=== PATIENT | male | born 1945 | race Caucasian/White ===

== ENCOUNTER → 2024-05-20 | Outpatient (BNVA) | payer OTHER, SELFPAY | END | disposition home or self-care (01) | PROVIDERS: PCP Hospitalist; Referring Provider Hospitalist; Visit Provider Urology | DX: N40.1 Benign prostatic hyperplasia with lower urinary tract symptoms (principal); N13.8 Other obstructive and reflux uropathy; N39.0 Urinary tract infection, site not specified; I10 Essential (primary) hypertension; E11.9 Type 2 diabetes mellitus without complications; E78.5 Hyperlipidemia, unspecified; G47.30 Sleep apnea, unspecified; E66.01 Morbid (severe) obesity due to excess calories; Z68.42 Body mass index [BMI] 45.0-49.9, adult; Z99.3 Dependence on wheelchair; M06.9 Rheumatoid arthritis, unspecified; Z86.73 Personal history of transient ischemic attack (TIA), and cerebral infarction without residual deficits; Z87.440 Personal history of urinary (tract) infections | CPT/HCPCS: 51701; 81003; 99212; G0463 ==

== ENCOUNTER → 2024-05-21 | Outpatient (CLI) | payer OTHER, SELFPAY | END | disposition home or self-care (01) | PROVIDERS: Referring Provider Urology; Visit Provider Urology | DX: R39.0 Extravasation of urine (principal) | CPT/HCPCS: 87077; 87086; 87186 ==

== ENCOUNTER → 2024-08-27 | Outpatient (CLI) | payer OTHER, SELFPAY ==
[2024-08-27 19:21] LABS: Collection Type, Urine Voided
[2024-08-27 19:42] LABS: Bacteria,Urine 1+; Bilirubin,Urine Negative (Negative); Blood,Urine 2+ (Negative); Color,Urine Yellow (Lt Yel-Yel); Glucose, Urine 4+ (Negative); Ketones,Urine Trace (Negative); Leukocyte Esterase,Urine Positive (Negative); Nitrite,Urine Positive (Negative); Protein,Urine 1+ (Neg - Trace); RBC,Urine 36 /hpf (0-3); Specific Gravity,Urine 1.019 (1.001-1.035); Squamous Epithelial Cell,Urine 1 /hpf (0-5); Urobilinogen,Urine Negative mg/dL (0.0-1.0); WBC,Urine 1203 /hpf (0-5)
[2024-08-27 19:48] LABS: Clarity,Urine Turbid (Clear/Hazy); Culture Indicated,Urine Yes
== END | disposition home or self-care (01) ==
LOC: SLDO 19:03
PROVIDERS: PCP Hospitalist; Referring Provider Hospitalist; Visit Provider Hospitalist
DX: N40.0 Benign prostatic hyperplasia without lower urinary tract symptoms (principal)
CPT/HCPCS: 81001; 87077; 87086; 87186

== ENCOUNTER 2024-08-29 15:03 | Inpatient (IN) | payer OTHER, SELFPAY ==
[2024-08-29] VITALS (7 sets, daily range): BP systolic 98–159; BP diastolic 64–92; PULSE 68–99; RESP 18–93; TEMP 36.6–36.8; O2SAT 93–95; BMI 45.9; BMI 47.0
--- NOTE | 2024-08-29 16:16 | XR_ITS ---
Examination: CT brain head without contrast. 2-D sagittal coronal reconstructions Date and time of exam:11/29/2024 1757 hours INDICATIONS: Patient fell from bed today with image of the head, head pain CTDI: vol (mGy):52.8 DLP: (mGycm):1126 Technique: Multiple CT axial sections of the brain have been obtained, 5 mm slice thickness. Contrast has not been administered. 2-D sagittal, coronal reconstructions have been obtained Low dose protocols were performed. One or more of the following dose reduction techniques were used; automated exposure control, adjustment of the mA and/or KV according to patient size, use of iterative reconstruction technique. Findings: No significant ventricular enlargement. Large areas of bifrontal bitemporal probable encephalomalacia, clinical correlation advised Intra-axial or extra-axial hemorrhage density is not seen. No mass effect or midline shift Basal cisterns are not remarkable. Fourth ventricle is midline. Cranial vault intact. Impression: Negative for acute hemorrhage, mass effect or midline shift Bifrontal bitemporal areas of probable encephalomalacia, clinical correlation advised
--- NOTE | 2024-08-29 16:21 | EKG_ITS ---
[facility] Test Date: 2024-08-29 Pat Name: MAL RUIZ Department: Room: - Gender: Male Checkroom Chief: : 1945 Requested By: Dae Martins Order Number: [id number] Reading MD: Dae Martins Measurements Intervals [place] Rate: 76 P: NV: QRS: 7 QRSD: 103 T: 81 QT: 407 QTc: 459 Interpretive Statements ATRIAL FIBRILLATION ABNORMAL RHYTHM ECG No previous ECG available for comparison /store/S0/[id number]/[id number].pdf
--- NOTE | 2024-08-29 16:23 | XR_ITS ---
Examination: AP chest single view TECHNIQUE: AP portable upright chest single view Exam date and time: August 29, 2024 1631 hours INDICATIONS: Sepsis alert, chest pain and SOB today. FINDINGS: Bibasilar pneumonia. Mild heart failure with enlarged cardiac contour and prominent vascular congestion Moderate osteopenia IMPRESSION: Bibasilar pneumonia Mild heart failure
--- NOTE | 2024-08-29 16:26 | PD.EDMALE ---
ED Male Genitalurinary RME/HPI General Chief complaint: Weakness Stated complaint: GENERALIZED WEAKNESS Time Seen by Provider: 08/29/24 15:54 Arrival date/time: 08/29/24 15:03 RME / HPI RME / HPI Narrative: The patient is a 78-year-old male with significant past medical history of hypertension, BPH, Morbid obesity, rheumatoid arthritis, diabetes mellitus type 2, cardiac arrhythmias, hyperlipidemia, sleep apnea, psoriasis, chronic bilateral lower limb edema, s/p CVA, osteoarthritis, s/p prostate ablation procedure in 1979 was sent to ED from his [facility] to rule out sepsis secondary to UTI. UA on 08/27/2024 was significant for UTI and he has been having urinary frequency, burning micturition and dysuria for about a month. He also had fever of 104.2 last night around 11 PM in his facility. This morning around 6:30 AM the patient was trying to get out of his bed, but after keeping his leg out of his bed he slipped down his bed and was not able to get up. He is ambulatory at baseline. He denied having ground-level fall but mentioned that only had slipped down his bed, and did not hit his head or had any severe impact over any other part of body. He denied any headache, lightheadedness, nausea or vomiting, chest pain, SOB, abdominal pain, any changes in bowel habit or worsening of his lower limb edema. Related Data Home Medications ?Medication ?Instructions ?Recorded ?Confirmed acetaminophen 650 mg 650 mg PO Q12H 09/15/22 05/20/24 tablet,extended release amlodipine 5 mg tablet 5 mg PO QDAY 09/15/22 05/20/24 apixaban 5 mg tablet 5 mg PO BID 09/15/22 05/20/24 finasteride 5 mg tablet 5 mg PO QDAY 09/15/22 05/20/24 furosemide 40 mg tablet 40 mg PO QDAY 09/15/22 05/20/24 lisinopril 40 mg tablet 40 mg PO QDAY 09/15/22 05/20/24 loperamide 2 mg tablet 2 mg PO Q4H PRN 09/15/22 05/20/24 metoprolol succinate 100 mg 100 mg PO BID 09/15/22 05/20/24 tablet,extended release 24 hr potassium chloride 20 mEq 20 meq PO QDAY 09/15/22 05/20/24 tablet,extended release tamsulosin 0.4 mg capsule 0.8 mg PO QDAY 09/15/22 05/20/24 silodosin 8 mg capsule (Rapaflo) 8 mg PO QDAY 12/20/22 12/20/22 carboxymethylcellulose sodium 0.5 1 drp Both eyes QID 05/20/24 05/20/24 % eye drops in a dropperette empagliflozin 25 mg tablet 25 mg PO QDAY 05/20/24 05/20/24 levofloxacin 500 mg tablet 500 mg PO QDAY 05/20/24 05/20/24 Allergies Allergy/AdvReac Type Severity Reaction Status Date / Time Penicillins Allergy Verified 08/29/24 16:37 Review of Systems Review of Systems Systems Reviewed: All systems reviewed, normal except as documented ED Exam Narrative Physical exam: General: Elderly, morbidly obese, cooperative gentleman, no acute distress, Alert and Oriented x 3 HEENT: Moist mucous membranes, oropharynx clear Neck: Supple, No masses, No JVD CVS: S1S2 Regular rate and rhythm, No murmurs, rubs or gallops Lungs: Clear to auscultation with no accessory use, no wheeze no rhonchi Abd: Soft, NT/distended in all quadrant, +BS, no organomegaly Ext: 2+ bilateral lower limb pitting edema wrapped under compression bandage, difficult to palpate peripheral pulses over lower limb Skin: No rash Psych: Appropriate mood and affect Course Quality Measures Current suspected stage: ruled out Reason for ruling out sepsis: Met 0/4 SIRS criteria Possible source: pulmonary and genitourinary Blood cultures ordered: yes Antibiotic ordered: Yes Pertinent labs: 08/29/24 16:41 Lactic Acid 2.8 H mMol/L (0.4-2.0) Procalcitonin 0.57 H ng/ml (0.0-0.49) sepsis (Was sent to rule out sepsis secondary to UTI from [facility]) Orders Category Date Time Status Agricultural Purchasing Agent STAT Care 08/29/24 16:21 Active Continuous Pulse Oximetry STAT Care 08/29/24 16:21 Completed EKG (ED ONLY) *Do not use* NOW Care 08/29/24 16:21 Active Insert IV NOW Care 08/29/24 16:21 Active Strict Intake and Output Routine Care 08/29/24 16:[address] head/brain wo con Stat Exams 08/29/24 16:16 Ordered EKG (ED Only) Stat Exams 08/29/24 16:21 Ordered XR chest 1V SEPSIS PROTOCOL Stat Exams 08/29/24 16:23 Taken B-Type Natriuretic Peptide Stat Lab 08/29/24 16:41 Received Blood Culture (Lab) Stat Lab 08/29/24 16:41 Received CBC Stat Lab 08/29/24 16:41 Received Comprehensive Metabolic Panel Stat Lab 08/29/24 16:41 Received LDH (Lactate Dehydrogenase) Stat Lab 08/29/24 16:41 Received Lactate (Lactic Acid) Stat Lab 08/29/24 16:41 Results Magnesium Stat Lab 08/29/24 16:41 Received Partial Thromboplastin Time Stat Lab 08/29/24 16:41 Received Phosphorous Stat Lab 08/29/24 16:41 Received Procalcitonin Stat Lab 08/29/24 16:41 Received Prothrombin Time with INR Stat Lab 08/29/24 16:41 Received Troponin I Stat Lab 08/29/24 16:41 Received Urinalysis Stat Lab 08/29/24 16:21 Ordered Urine Culture Stat Lab 08/29/24 16:21 Ordered Doxycycline Inj [Vibramycin Inj] 100 mg Med 08/29/24 17:47 Active Sodium Chloride 0.9% (Pop) [NS 0.9% mini bag] 100 ml IV Q12H Magnesium Sulfate 4 GM Ivpb [Magnesium Sulfate Ivpb] Med 08/29/24 17:39 Active 4 gm in 50 ml IV X1 Potassium Chloride [K-Dur] Med 08/29/24 17:39 Discontinued 40 meq PO X1 ONE cefTRIAXone/D5w 1gm IV premix [Rocephin/D5w 1gm IV Med 08/29/24 16:29 Discontinued premix] 1 gm in 50 ml IV X1 Oxygen Delivery NOW RT 08/29/24 16:21 Active Vital Signs Vital signs: Vital Signs Temperature 97.8 F 08/29/24 15:26 Pulse Rate 77 08/29/24 15:26 Respiratory Rate 20 08/29/24 15:26 Blood Pressure 104/67 08/29/24 15:26 Pulse Oximetry (%) 94 L 08/29/24 15:26 Oxygen Delivery Method Room Air 08/29/24 15:26 Urogenital - Male MDM Narrative MDM Narrative:: The patient is a 78-year-old male with significant past medical history of hypertension, BPH, Morbid obesity, rheumatoid arthritis, diabetes mellitus type 2, cardiac arrhythmias, hyperlipidemia, sleep apnea, psoriasis, chronic bilateral lower limb edema, s/p CVA, osteoarthritis, s/p prostate ablation procedure in 1979 was sent to ED from his [facility] to rule out sepsis secondary to UTI. UA on 08/27/2024 was significant for UTI and he has been having urinary frequency, burning micturition and dysuria for about a month. He also had fever of 104.2 last night around 11 PM in his facility. This morning around 6:30 AM the patient was trying to get out of his bed, but after keeping his leg out of his bed he slipped down his bed and was not able to get up. He is ambulatory at baseline. He denied having ground-level fall but mentioned that only had slipped down his bed, and did not hit his head or had any severe impact over any other part of body. He denied any headache, lightheadedness, nausea or vomiting, chest pain, SOB, abdominal pain, any changes in bowel habit or worsening of his lower limb edema. During presentation his vitals were significant for blood pressure 104/67, pulse 77, RR 20, temperature 97.8, saturating 94% on room air. Labs were significant for white count 11.9, platelet 86, PT 13.3, potassium 3.6, BUN 27, creatinine 1.3, GFR 57, blood sugar 170, lactic acid 2.8 corrected calcium 8.7, magnesium 1.7, BNP 175, albumin 3.1, Pro-Pelon 0.57. EKG was significant for atrial fibrillation, and chest x-ray revealed bibasilar pneumonia with mild heart failure pattern. UA and CT head without contrast pending. The patient met 0/4 SIRS criteria, and his mentation, systolic blood pressure was initially 104 later went down to 98. Therefore, 30 cc/kg bolus fluid was not given, and patient also had mild CHF pattern in CXR including bilateral lower limb 2+ pitting edema suggestive of volume overload condition. The patient was given ceftriaxone 1 g IV x 1, doxycycline 100 Mg IV every 12 hour, both would cover UTI and pneumonia. Patient data External records reviewed:: [facility] [place] Clinical information provided by:: patient and evaluation advisor (From [facility]) Social determinants that could affect healthcare access:: none Patient has the following chronic illnesses:: See above How is presenting disease/condition affected by chronic disease/condition?: exacerbated by Evaluation data The following diagnostics were reviewed and interpreted by me:: lab results and radiology exam(s) Lab and/or radiology exams considered but not ordered:: None Interpretation Summary: See above Medications / Prescriptions Medications or Prescriptions considered but not ordered:: None Medication administrations:: Medication Administration History Magnesium Sulfate (Magnesium Sulfate Ivpb) 4 gm in 50 mls @ 12.5 mls/hr IV X1 ONE Stop: 08/29/24 21:38 Doxycycline Hyclate 100 mg/ (Sodium Chloride) 100 mls @ 100 mls/hr IV Q12H ONE Stop: 08/29/24 18:46 Discontinued Medications Ceftriaxone Sodium/Dextrose (Rocephin/D5w 1gm Iv Premix) 1 gm in 50 mls @ 100 mls/hr IV X1 ONE Stop: 08/29/24 16:58 Last Admin: 08/29/24 17:02 Dose: 100 mls/hr Documented By: Comments: Potassium Chloride (Potassium Chloride 20 Meq Tabcr) 40 meq PO X1 ONE Stop: 08/29/24 17:40 See above Consultations Consultation(s) initiated? (list below): No Consultation #1 (Physician, Specialty, Details): None Diagnosis Urogenital Male Differential Diagnosis: urinary tract infection, prostatitis and other (Bacteremia) Most likely diagnosis given after review of the tests above:: 1. Prostatitis 2. Community-acquired pneumonia versus healthcare associated pneumonia Admission Indicated Admission indicated?: not indicated Explain why admission is indicated or not indicated:: Signed out to Dr. Jeter for further management and care of the patient, pending UA and CT head without contrast to rule out intracranial bleed. Admission Request Was there a request for admission?: No Disposition Plan Disposition Plan: other (specify) (Signed out to Dr. Jeter for further management and care of the patient, pending UA and CT head without contrast to rule out intracranial bleed.) Discharge Plan Prescriptions/Referrals Prescriptions/Med Rec: No Action silodosin [Rapaflo] 8 mg capsule 8 mg PO QDAY Rx Instructions: must administer with a meal/food acetaminophen 650 mg tablet extended release 650 mg PO Q12H amlodipine 5 mg tablet 5 mg PO QDAY apixaban 5 mg tablet 5 mg PO BID furosemide 40 mg tablet 40 mg PO QDAY potassium chloride 20 mEq tablet extended release 20 meq PO QDAY metoprolol succinate 100 mg tablet extended release 24 hr 100 mg PO BID loperamide 2 mg tablet 2 mg PO Q4H PRN Rx Instructions: administer after each loose stool until symptoms controlled; do not exceed 8 mg per 24 hrs lisinopril 40 mg tablet 40 mg PO QDAY tamsulosin 0.4 mg capsule 0.8 mg PO QDAY finasteride 5 mg tablet 5 mg PO QDAY carboxymethylcellulose sodium 0.5 % dropperette 1 drp Both eyes QID empagliflozin 25 mg tablet 25 mg PO QDAY levofloxacin 500 mg tablet 500 mg PO QDAY Referrals: No Primary/Family,Physician [Primary Care Provider] - In 1 week Problem List Clinical Impression: Prostatitis Patient/Caregiver Discharge Instructions Print Language: Danish
[2024-08-29] MEDS: cefTRIAXone/D5w 1gm IV premix 1 GM/50 ML BAG IV (17:02)
[2024-08-29 17:03] LABS: Lactate (Lactic Acid) 2.8 mMol/L (0.4-2.0)
[2024-08-29 17:07] LABS: Basophils # (Auto) 0.1 Thou/mm3 (0.0-0.2); Basophils % (Auto) 1 % (0-2.5); Eosinophils % (Auto) 0 % (0-10); Hematocrit 43.2 % (41.0-53.0); Hemoglobin 15.4 g/dL (13.5-16.0); Immature Granulocytes % (Auto) 0 % (0-0); Immature Granulocytes Auto 0.05 Thou/mm3 (0.00-0.00); Lymphocytes # (Auto) 1.2 Thou/mm3 (1.0-4.8); Lymphocytes % (Auto) 10 % (10-50); Mean Corpuscular HGB Conc 35.6 g/dl (31.0-37.0); Mean Corpuscular Hemoglobin 31.2 pg (25.0-35.0); Mean Corpuscular Volume 88 fL (80-100); Monocytes # (Auto) 1.6 Thou/mm3 (0.0-0.8); Monocytes % (Auto) 13 % (0-12); Neutrophils # (Auto) 9.1 Thou/mm3 (1.8-7.7); Neutrophils % (Auto) 76 % (37-80); Nucleated Red Blood Cell % 0 /100 WBC (0); Platelet Count 86 Thou/mm3 (140-440); RDW Standard Deviation 45.5 fL (35.1-43.9); Red Blood Count 4.93 Miln/mm3 (4.50-5.90); White Blood Count 11.9 Thou/mm3 (3.8-10.6)
[2024-08-29 17:20] LABS: INR 1.2 (0.9-1.3); Partial Thromboplastin Time 30.8 Seconds (22.0-36.0); Prothrombin Time 13.3 Seconds (9.0-12.2)
[2024-08-29 17:24] LABS: B-Type Natriuretic Peptide 175 pg/mL (0-100)
[2024-08-29 17:27] LABS: Alanine Aminotransferase 16 U/L (10-49); Albumin, Serum 3.1 gm/dL (3.4-4.8); Albumin/Globulin Ratio 1.2 (1.2-2.2); Alkaline Phosphatase 92 U/L (46-116); Anion Gap 6 (7-16); Aspartate Amino Transferase 18 U/L (0-34); BUN/Creatinine Ratio 21 Ratio (12-20); Bilirubin,Total 0.9 mg/dL (0.3-1.2); Blood Urea Nitrogen 27 mg/dL (9-23); Calcium (Corrected) 8.7 mg/dL (8.5-10.1); Carbon Dioxide 28.1 mMol/L (20.0-31.0); Chloride 102 mMol/L (98-107); Creatinine (Component) 1.3 mg/dL (0.6-1.3); Estimated Creatinine Clearance 64.5 mL/min (>60); Globulin 2.6 gm/dL (2.3-3.5); Glucose 170 mg/dL (74-106); LDH (Lactate Dehydrogenase) 213 U/L (120-246); Magnesium 1.7 mg/dL (1.6-2.6); Osmolality,Calculated 281 (275-295); Phosphorous 3.7 mg/dL (2.4-5.1); Potassium 3.6 mMol/L (3.4-5.1); Sodium 136 mMol/L (136-145); Total Protein 5.7 gm/dL (5.7-8.2); Troponin I < 0.020 ng/mL (0.0-0.045); eGFR 57 See Note
[2024-08-29 17:33] LABS: Procalcitonin 0.57 ng/ml (0.0-0.49)
[2024-08-29 17:50] LABS: Collection Type, Urine Clean Catch
[2024-08-29] MEDS: DOXYCYCLINE INJ 100 MG in SODIUM CHLORIDE 0.9% (POP) 100 ML IV (18:11)
[2024-08-29] MEDS: POTASSIUM CHLORIDE 20 mEq TABCR 40 MEQ PO (18:12)
[2024-08-29] MEDS: Magnesium Sulfate 4 GM Ivpb 4 GM/50 ML BAG IV (18:12)
[2024-08-29 18:28] LABS: Bacteria,Urine 4+; Bilirubin,Urine Negative (Negative); Blood,Urine 2+ (Negative); Color,Urine Orange (Lt Yel-Yel); Glucose, Urine Negative (Negative); Ketones,Urine Negative (Negative); Leukocyte Esterase,Urine Positive (Negative); Nitrite,Urine Negative (Negative); PH,Urine 5.5 (5.0-7.0); Protein,Urine 1+ (Neg - Trace); RBC,Urine 30 /hpf (0-3); Specific Gravity,Urine 1.015 (1.001-1.035); Squamous Epithelial Cell,Urine 2 /hpf (0-5); Urobilinogen,Urine Negative mg/dL (0.0-1.0); WBC,Urine 3620 /hpf (0-5)
[2024-08-29 18:39] LABS: Clarity,Urine Turbid (Clear/Hazy)
--- NOTE | 2024-08-29 18:50 | EDNOTE_ITS ---
Emergency Room Addendum Addendum Narrative: 1800: Care assumed from Dr. Martins, attending Dr. Sanders, the previous shift emergency physician. Past medical, surgical, social and family history reviewed. Vitals and home medications reviewed. Results and treatment plan discussed. I will assume the care of the patient at this time and will follow the patient, pending CT head and UA. Please refer to the emergency department record for history and examination from initial visit. UA is positive for a UTI. Patient was already treated with Rocephin and Doxycycline. 184: Discussed case with Dr. Brice from Hospitalist service regarding admission. Discussed patients ED course, exam findings, labs, and radiology results. The Hospitalist agrees to accept the patient for admission. RADIOLOGY RESULTS: [facility] Report Signed Patient: MAL RUIZ Record#: [id number] Birthdate: 1945 Age/Sex: 78 / M Location: [facility] Attending Dr: Ordering Physician: Dae Martins Date of Service: 08/29/24 Procedure(s): CT head/brain wo con Accession Number(s): [id number] cc: Dae Martins; Ata Polo MD; NO PRIMARY/FAMILY,PHYSICIAN~ Examination: CT brain head without contrast. 2-D sagittal coronal reconstructions Date and time of exam:11/29/2024 1757 hours INDICATIONS: Patient fell from bed today with image of the head, head pain CTDI: vol (mGy):52.8 DLP: (mGycm):1126 Technique: Multiple CT axial sections of the brain have been obtained, 5 mm slice thickness. Contrast has not been administered. 2-D sagittal, coronal reconstructions have been obtained Low dose protocols were performed. One or more of the following dose reduction techniques were used; automated exposure control, adjustment of the mA and/or KV according to patient size, use of iterative reconstruction technique. Findings: No significant ventricular enlargement. Large areas of bifrontal bitemporal probable encephalomalacia, clinical correlation advised Intra-axial or extra-axial hemorrhage density is not seen. No mass effect or midline shift Basal cisterns are not remarkable. Fourth ventricle is midline. Cranial vault intact. Impression: Negative for acute hemorrhage, mass effect or midline shift Bifrontal bitemporal areas of probable encephalomalacia, clinical correlation advised Dictated By: Ata Polo MD Signed By: <Electronically signed by Ata Polo MD in OV> 08/29/24 [id number]
[2024-08-29 20:00] LABS: Reflex Lactate? Y
--- NOTE | 2024-08-29 20:11 | PD.HHHP ---
Documentation for date of: 08/29/24 HPI - Hospitalist History of Present Illness History of Present Illness: Weakness History of present illness: A 78-year-old male presented to the ER with the chief complaint of generalized weakness after slipping down in bed. The patient described one day of weakness when trying to get out of bed in the morning. He stated he slid down while moving his legs to sit up and was unable to get back up. He denied loss of consciousness or any trauma from the incident. He also c/o slight cough and minimal phlegm production (unspecified duration). Patient denied chest pain, shortness of breath, nausea, vomiting, fever, headache, lightheadedness, abdominal pain, bowel changes, or worsening of lower extremity edema. He reported ongoing urinary symptoms for about a month, including burning with urination, dysuria, and urinary frequency. He was noted to have a fever of 104.2?F at his care facility the night prior and was sent to the ER to rule out sepsis. The patient has a history of DM-2, HTN, BPH, cardiac arrhythmias, HLD, ANDI, RA, psoriasis, chronic bilateral LE edema, morbid obesity, s/p CVA, and osteoarthritis. Surgical history includes bilateral total knee replacement and s/p prostate ablation in 1979. Social history includes no smoking, alcohol, or drug use. He resides at [facility]. He is ambulatory at baseline but uses a walker for longer distances. In the ER, vital signs recorded as temp 97.8 F, HR 77 bpm, RR 20, BP 104/67 mmHg. Labs revealed WBC 11.9, Hb 15.4, Plt 86, INR 1.2, Na 136, K 3.6, BUN 27, Creatinine 1.3, Glucose 170, Lactic acid 2.8, BNP 175, Procalcitonin 0.57. UA showed turbid appearance with WBC 3620 and RBC 30. EKG showed atrial fibrillation. Chest X-ray revealed bibasilar pneumonia with mild heart failure pattern. CT head negative for acute changes. Admit for further evaluation and treatment. Review of Systems Review of Systems Narrative Review of Systems: A 14 point review of systems was assessed and negative except for that per HPI Past Medical History Past Medical History NEUROLOGIC: Positive Transient Ischemic Attacks (TIA) CARDIAC: Positive Cardiac Disorders (CARDIAC ARRHYTHMIA), Cardiac Arrhythmia, Cellulitis and Hypertension; Negative Congestive Heart Failure RESPIRATORY: Negative Chronic Obstructive Pulmonary Disease (COPD) GASTROINTESTINAL: Positive Gastrointestinal Disorders, Cirrhosis and Obesity GENITOURINARY: Positive Benign Prostatic Hyperplasia; Negative Renal Disease MUSCULOSKELETAL: Positive Arthritis ENDOCRINE: Positive Diabetes Mellitus Type 2; Negative Diabetes Mellitus Type 1 OTHER HISTORY: Positive Falls Social History SMOKING STATUS: Never smoker Meds Home Medications and Allergies Home Medications ?Medication ?Instructions ?Recorded ?Confirmed ?Type acetaminophen 650 mg 650 mg PO Q12H 09/15/22 05/20/24 History tablet,extended release amlodipine 5 mg tablet 5 mg PO QDAY 09/15/22 05/20/24 History apixaban 5 mg tablet 5 mg PO BID 09/15/22 05/20/24 History finasteride 5 mg tablet 5 mg PO QDAY 09/15/22 05/20/24 History furosemide 40 mg tablet 40 mg PO QDAY 09/15/22 05/20/24 History lisinopril 40 mg tablet 40 mg PO QDAY 09/15/22 05/20/24 History loperamide 2 mg tablet 2 mg PO Q4H PRN 09/15/22 05/20/24 History metoprolol succinate 100 mg 100 mg PO BID 09/15/22 05/20/24 History tablet,extended release 24 hr potassium chloride 20 mEq 20 meq PO QDAY 09/15/22 05/20/24 History tablet,extended release tamsulosin 0.4 mg capsule 0.8 mg PO QDAY 09/15/22 05/20/24 History silodosin 8 mg capsule (Rapaflo) 8 mg PO QDAY 12/20/22 12/20/22 History carboxymethylcellulose sodium 0.5 1 drp Both eyes QID 05/20/24 05/20/24 History % eye drops in a dropperette empagliflozin 25 mg tablet 25 mg PO QDAY 05/20/24 05/20/24 History levofloxacin 500 mg tablet 500 mg PO QDAY 05/20/24 05/20/24 History Allergies Allergy/AdvReac Type Severity Reaction Status Date / Time Penicillins Allergy Verified 08/29/24 16:37 Exam Vital Signs Temp Pulse Resp BP Pulse Ox O2 Del Method 98.2 F 84 22 H 157/84 H 94 L Room Air 08/29/24 18:15 08/29/24 19:19 08/29/24 19:19 08/29/24 19:19 08/29/24 19:19 08/29/24 19:19 Narrative Constitutional: Male, in no apparent distress. Eyes: Extraocular movements intact. No ptosis. PERRL. Neck: Supple, trachea midline. No thyromegaly. Lungs: Clear and good breath sounds equally. Crackles. CV: S1, S2. Irregular rate and rhythm. GI: Soft, nontender. No HSM. Musculoskeletal: BLE edema. Neuro: No focal deficit. No sensory deficit. Alert and oriented x3. Psychiatric: No signs of depression and is nonfocal. Skin: Warm and dry. Results - Hospitalist Labs Diagrams: 08/29/24 16:41 08/29/24 16:41 Labs: Short CBC 08/29/24 Range/Units 16:41 WBC 11.9 H (3.8-10.6) Thou/mm3 Hgb 15.4 (13.5-16.0) g/dL Hct 43.2 (41.0-53.0) % Plt Count 86 L (140-440) Thou/mm3 BMP 08/29/24 16:41 Sodium 136 Potassium 3.6 Chloride 102 Carbon Dioxide 28.1 BUN 27 H Creatinine 1.3 Glucose 170 H Calcium 8.0 L Cardiac Enzymes 08/29/24 Range/Units 16:41 Troponin I < 0.020 (0.0-0.045) ng/mL Liver Function 08/29/24 Range/Units 16:41 Total Bilirubin 0.9 (0.3-1.2) mg/dL AST 18 (0-34) U/L ALT 16 (10-49) U/L Alkaline Phosphatase 92 (46-116) U/L Albumin 3.1 L (3.4-4.8) gm/dL Urine 08/29/24 Range/Units 17:40 Urine Color [place] A (Lt Yel-Yel) Urine Clarity Turbid A (Clear/Hazy) Urine pH 5.5 (5.0-7.0) Ur Specific [place] 1.015 (1.001-1.035) Urine Protein 1+ A (Neg - Trace) Urine Glucose (UA) Negative (Negative) Assessment & Plan -Hospitalist Additional Assessment #Sepsis (presumed secondary to UTI and/or pneumonia) Assessment: SIRS criteria met (Temp >38?C, WBC >12, HR normal), qSOFA score 1 (SBP <100), elevated lactate (2.8), procalcitonin 0.57, fever at SNF, UA with pyuria, CXR with bibasilar pneumonia Plan: - Initiate empiric IV antibiotics covering urinary and respiratory pathogens (ceftriaxone + azithromycin) - Obtain blood and urine cultures - Monitor vitals, urine output, lactate clearance - Daily labs - Hold SGLT2 inhibitor now #Atrial Fibrillation Assessment: Chronic, EKG shows AFib; rate controlled (HR 77) Plan: - Continue rate control strategy - Continue apixaban #Thrombocytopenia Assessment: Platelets 86K Plan: - Monitor now #Diabetes Mellitus Type 2 Assessment: Suboptimal glycemic control (random glucose 170), no acute hyperglycemia Plan: - Monitor glucose with goal preprandial <140, random <180 - Continue long acting insulin + sliding scale #Hypertension Assessment: Stable, BP 104/67 Plan: - Continue home antihypertensives #Falls and Generalized Weakness Assessment: Likely secondary to acute infection and deconditioning, no trauma or head injury Plan: - PT - Fall precautions Quality Measures Quality Measures sepsis (Was sent to rule out sepsis secondary to UTI from [facility]) Current suspected stage: sepsis Possible source: pulmonary and genitourinary Blood cultures ordered: yes Antibiotic ordered: Yes Advance care planning discussed with:: patient
[2024-08-29 20:38] LABS: Lactic Acid, 3 HR 2.4 mMol/L (0.4-2.0)
[2024-08-30] VITALS (11 sets, daily range): BP systolic 141–154; BP diastolic 76–99; PULSE 83–110; RESP 17–19; TEMP 35.9–36.7; O2SAT 91–95
[2024-08-30 05:51] LABS: Basophils % (Auto) 0 % (0-2.5); Eosinophils % (Auto) 0 % (0-10); Hematocrit 45.2 % (41.0-53.0); Hemoglobin 16.1 g/dL (13.5-16.0); Immature Granulocytes % (Auto) 1 % (0-0); Immature Granulocytes Auto 0.08 Thou/mm3 (0.00-0.00); Lymphocytes # (Auto) 1.7 Thou/mm3 (1.0-4.8); Lymphocytes % (Auto) 12 % (10-50); Mean Corpuscular HGB Conc 35.6 g/dl (31.0-37.0); Mean Corpuscular Hemoglobin 31.2 pg (25.0-35.0); Mean Corpuscular Volume 88 fL (80-100); Monocytes # (Auto) 2.3 Thou/mm3 (0.0-0.8); Monocytes % (Auto) 15 % (0-12); Neutrophils # (Auto) 10.6 Thou/mm3 (1.8-7.7); Neutrophils % (Auto) 72 % (37-80); Nucleated Red Blood Cell % 0 /100 WBC (0); Platelet Count 89 Thou/mm3 (140-440); RDW Standard Deviation 46.4 fL (35.1-43.9); Red Blood Count 5.16 Miln/mm3 (4.50-5.90); White Blood Count 14.7 Thou/mm3 (3.8-10.6)
[2024-08-30 06:10] LABS: Anion Gap 6 (7-16); BUN/Creatinine Ratio 30 Ratio (12-20); Blood Urea Nitrogen 30 mg/dL (9-23); Calcium 8.2 mg/dL (8.3-10.6); Carbon Dioxide 28.1 mMol/L (20.0-31.0); Chloride 101 mMol/L (98-107); Glucose 189 mg/dL (74-106); Osmolality,Calculated 281 (275-295); Potassium 3.7 mMol/L (3.4-5.1); Sodium 135 mMol/L (136-145); eGFR > 60 See Note
[2024-08-30] MEDS: INSULIN LISPRO (AdmeLOG) 1 UNIT/0.01 ML UNIT SC ×3 (07:39→17:25)
[2024-08-30] MEDS: FINASTERIDE 5 MG TABLET PO (08:53)
[2024-08-30] MEDS: amLODIPine BESYLATE 5 MG TABLET PO (08:53)
[2024-08-30] MEDS: FUROSEMIDE INJ 10 MG/ML 4ML VIAL 40 MG IVP (08:53)
[2024-08-30] MEDS: Lisinopril 20 MG TABLET 40 MG PO (08:55)
[2024-08-30] MEDS: TAMSULOSIN HCL 0.4 MG CAPSULE PO (08:56)
[2024-08-30] MEDS: cefTRIAXone/D5w 1gm IV premix 1 GM/50 ML BAG IV (08:57)
[2024-08-30] MEDS: carVEDILOL 12.5 MG TABLET PO ×2 (08:57→17:25)
[2024-08-30] MEDS: INSULIN GLARGINE (Lantus) 5 UNIT/0.05 ML (PER 5 UNITS) 20 UNIT SC (08:57)
[2024-08-30] MEDS: APIXABAN 2.5 MG TABLET 5 MG PO (09:05)
--- NOTE | 2024-08-30 09:18 | PC.NURSE ---
Bladder scan 41ml
[2024-08-30] MEDS: AZITHROMYCIN INJ 500 MG in SODIUM CHLORIDE 0.9% 250 ML 250 ML 250 MG IV (09:47)
--- NOTE | 2024-08-30 10:11 | XR_ITS ---
Examination: Retroperitoneal ultrasound, complete Technique: Multiple high resolution grayscale images of the retroperitoneum obtained, including kidneys and bladder. Exam date and time:August 30, 2024 1056 hours INDICATIONS: Urinary retention and pain with urination months FINDINGS: Right kidney 12.5 cm cortex 2.5 cm Midpole 15 mm cyst Left kidney 13.9 cm cortex 2.7 cm Suspicious for solid nodule left kidney 3.5 x 2.6 x 1.8 cm Moderate renal parenchymal scar formation No bladder mass, bladder prevoid volume 122 cc IMPRESSION: Recommend MRI abdomen kidneys follow-up to exclude solid mass left kidney 3.5 x 2.6 x 1.8 cm
--- NOTE | 2024-08-30 11:30 | PC.NURSE ---
Blood cultures preliminary first bottle gram negative rods.
[2024-08-30 14:05] LABS: Path Review Blood Smear Sent to Pathologist
--- NOTE | 2024-08-30 15:39 | PC.SS ---
SS met with patient who is alert/oriented. Patient was able to verify demographics. Patient is on contact precautions. Patient confirmed he is from [facility] and will return. He's been at facility for the last 5 years. Patient makes his own decisons and his alt medical decision maker is his daughter, Olga. PCP: Dr. Michelle. Patient will require gurney transport upon discharge.
--- NOTE | 2024-08-30 15:55 | ESPR_ITS ---
Documentation for date of: 08/30/24 Subjective - Hospitalist Subjective Interval history: Patient seen and eval this a.m. He states that he is currently feeling somewhat better. He does endorse having some back pain after sustaining his fall due to generalized weakness.Patient denies any head trauma or loss of consciousness. Patient does endorse having urinary symptoms such as straining, dysuria, increased urinary frequency and history of prostate issues. He had seen urology in the past and appears to have a TURP as well. She does not endorse any nausea, vomiting, shortness of breath, chest pain, fevers or chills, abdominal pain or diarrhea. He also denies any rectal pain or pain in the tip of his penis that may suggest prostatitis. Exam Vital Signs Temp Pulse Resp BP Pulse Ox O2 Del Method FiO2 97.6 F 110 H 18 143/76 H 92 L Room Air 21 08/30/24 11:55 08/30/24 11:55 08/30/24 11:55 08/30/24 11:55 08/30/24 11:55 08/30/24 04:00 08/29/24 23:52 Narrative Gen: No acute distress HEENT: NCAT, PERRLOU, Sclera anicteric, conjunctiva noninjected, oral mucosa moist without erythema Neck: Supple, full range of motion, no LAD CV: RRR, no murmurs, rubs or gallops Resp: CTAB/L, no wheezing, rhonchi or rales GI: abdomen soft, protuberant, bowel sounds noted, no tenderness to palpation, no guarding or rebound tenderness, no organomegaly Skin: clean, dry, no rashes, lesions or ecchymosis, no stepoffs noted in spine on palpation Ext: b/l LE compression wrapping in place Neuro: A&O x3, CN II- XII intact b/l, no focal neurological deficits Objective - Hospitalist Labs Diagram: 08/30/24 04:27 08/30/24 04:27 Labs: Laboratory Results - last 24 hr 08/29/24 08/29/24 08/29/24 16:41 17:40 20:18 WBC 11.9 H RBC 4.93 Hgb 15.4 Hct 43.2 MCV 88 MCH 31.2 MCHC 35.6 RDW Std Deviation 45.5 H Plt Count 86 L Neut % (Auto) 76 Lymph % (Auto) 10 [place] % (Auto) 13 H Eos % (Auto) 0 Baso % (Auto) 1 Neut # (Auto) 9.1 H Lymph # (Auto) 1.2 [place] # (Auto) 1.6 H Eos # (Auto) 0.0 Baso # (Auto) 0.1 Immature Gran # (Auto) 0.05 H Absolute Nucleated RBC 0.00 Immature Gran % 0 Nucleated RBC % 0 Smear Path Review PT 13.3 H INR 1.2 APTT 30.8 Sodium 136 Potassium 3.6 Chloride 102 Carbon Dioxide 28.1 Anion Gap 6 L BUN 27 H Creatinine 1.3 Estim Creat Clear Calc 64.5 eGFR 57 L BUN/Creatinine Ratio 21 H Glucose 170 H Calculated Osmolality 281 Lactic Acid 2.8 H 2.4 H Calcium 8.0 L Corrected Calcium 8.7 Phosphorus 3.7 Magnesium 1.7 Total Bilirubin 0.9 AST 18 ALT 16 Alkaline Phosphatase 92 Lactate Dehydrogenase 213 Troponin I < 0.020 B-Natriuretic Peptide 175 H Total Protein 5.7 Albumin 3.1 L Globulin 2.6 Albumin/Globulin Ratio 1.2 Procalcitonin 0.57 H Ur Collection Type Clean Catch Urine Color [place] A Urine Clarity Turbid A Urine pH 5.5 Ur Specific [place] 1.015 Urine Protein 1+ A Urine Glucose (UA) Negative Urine Ketones Negative Urine Blood 2+ A Urine Nitrite Negative Urine Bilirubin Negative Urine Urobilinogen (Auto) Negative Ur Leukocyte Esterase Positive Urine RBC 30 H Urine WBC 3620 H Ur Squamous Epith Cells 2 Urine Bacteria 4+ A 08/30/24 04:27 WBC 14.7 H RBC 5.16 Hgb 16.1 H Hct 45.2 MCV 88 MCH 31.2 MCHC 35.6 RDW Std Deviation 46.4 H Plt Count 89 L Neut % (Auto) 72 Lymph % (Auto) 12 [place] % (Auto) 15 H Eos % (Auto) 0 Baso % (Auto) 0 Neut # (Auto) 10.6 H Lymph # (Auto) 1.7 [place] # (Auto) 2.3 H Eos # (Auto) 0.0 Baso # (Auto) 0.0 Immature Gran # (Auto) 0.08 H Absolute Nucleated RBC 0.00 Immature Gran % 1 H Nucleated RBC % 0 Smear Path Review Sent to Pathologist PT INR APTT Sodium 135 L Potassium 3.7 Chloride 101 Carbon Dioxide 28.1 Anion Gap 6 L BUN 30 H Creatinine 1.0 Estim Creat Clear Calc 85.0 eGFR > 60 BUN/Creatinine Ratio 30 H Glucose 189 H Calculated Osmolality 281 Lactic Acid Calcium 8.2 L Corrected Calcium Phosphorus Magnesium Total Bilirubin AST ALT Alkaline Phosphatase Lactate Dehydrogenase Troponin I B-Natriuretic Peptide Total Protein Albumin Globulin Albumin/Globulin Ratio Procalcitonin Ur Collection Type Urine Color Urine Clarity Urine pH Ur Specific [place] Urine Protein Urine Glucose (UA) Urine Ketones Urine Blood Urine Nitrite Urine Bilirubin Urine Urobilinogen (Auto) Ur Leukocyte Esterase Urine RBC Urine WBC Ur Squamous Epith Cells Urine Bacteria Assessment & Plan Assessment: #Sepsis (presumed secondary to UTI and/or pneumonia) Assessment: SIRS criteria met (Temp >38?C, WBC >12, HR normal), qSOFA score 1 (SBP <100), elevated lactate (2.8), procalcitonin 0.57, fever at SNF, UA with pyuria, CXR with bibasilar pneumonia Plan: -Initially started on Rocephin and azithromycin for coverage of both UTI and pneumonia. However, upon chart review, he is noted to have history of ESBL UTI. Will DC Rocephin and switch to meropenem at this time. - Hold SGLT2 inhibitor now, discontinued from home meds - due to concern for urinary retention 2/2 BPH, will order renal US - UCx + for GNR, f/u final cultures and sensitivities #Atrial Fibrillation Assessment: Chronic, EKG shows AFib; rate controlled (HR 77) Plan: - Continue carvedilol - Continue apixaban #Thrombocytopenia Assessment: Platelets 86K Plan: - Monitor now #Diabetes Mellitus Type 2 Assessment: Suboptimal glycemic control (random glucose 170), no acute hyperglycemia Plan: - Monitor glucose with goal preprandial <140, random <180 - Continue long acting insulin + sliding scale - discontinue home empagliflozin due to UTI #Hypertension Plan: - Continue home antihypertensives #Falls and Generalized Weakness Assessment: Likely secondary to acute infection and deconditioning, no trauma or head injury Plan: - PT - Fall precautions Nutrition: Consistent carb diet DVT Prophylaxis: Eliquis Code Status: Full code Time Spent with Patient Time: Total time spent is greater than 50% in coordination of care (as documented) at patient's floor/unit and/or counseling patient: 30 min Time with patient: 25 - 35 minutes Reason for Continued Stay Reason for continued stay: further dx testing and IV antibiotics Quality Measures Quality Measures sepsis (Was sent to rule out sepsis secondary to UTI from [facility]) Current suspected stage: ruled out Possible source: pulmonary and genitourinary Blood cultures ordered: yes Antibiotic ordered: Yes Advance care planning discussed with:: patient
[2024-08-30] MEDS: MEROPENEM INJ 1,000 MG in SODIUM CHLORIDE 0.9% (Popper) 50 ML 100 MG IV ×2 (16:38→21:04)
[2024-08-31] VITALS (12 sets, daily range): BP systolic 120–175; BP diastolic 83–99; PULSE 80–90; RESP 16–20; TEMP 36.1–36.6; O2SAT 3–98
[2024-08-31] MEDS: guaiFENesin/COD SYRUP 5 ML UDC 10 ML PO ×3 (00:02→21:28)
[2024-08-31 05:24] LABS: Basophils # (Auto) 0.1 Thou/mm3 (0.0-0.2); Basophils % (Auto) 0 % (0-2.5); Eosinophils % (Auto) 0 % (0-10); Hemoglobin 16.1 g/dL (13.5-16.0); Immature Granulocytes % (Auto) 1 % (0-0); Immature Granulocytes Auto 0.09 Thou/mm3 (0.00-0.00); Lymphocytes # (Auto) 2.4 Thou/mm3 (1.0-4.8); Lymphocytes % (Auto) 15 % (10-50); Mean Corpuscular Hemoglobin 31.3 pg (25.0-35.0); Mean Corpuscular Volume 89 fL (80-100); Monocytes # (Auto) 2.6 Thou/mm3 (0.0-0.8); Monocytes % (Auto) 17 % (0-12); Neutrophils # (Auto) 10.3 Thou/mm3 (1.8-7.7); Neutrophils % (Auto) 67 % (37-80); Nucleated Red Blood Cell % 0 /100 WBC (0); Platelet Count 99 Thou/mm3 (140-440); RDW Standard Deviation 46.6 fL (35.1-43.9); Red Blood Count 5.15 Miln/mm3 (4.50-5.90); White Blood Count 15.4 Thou/mm3 (3.8-10.6)
[2024-08-31] MEDS: MEROPENEM INJ 1,000 MG in SODIUM CHLORIDE 0.9% (Popper) 50 ML 100 MG IV ×3 (05:26→21:28)
[2024-08-31 05:27] LABS: Anion Gap 5 (7-16); BUN/Creatinine Ratio 22 Ratio (12-20); Blood Urea Nitrogen 22 mg/dL (9-23); Carbon Dioxide 29.7 mMol/L (20.0-31.0); Chloride 100 mMol/L (98-107); Glucose 199 mg/dL (74-106); Osmolality,Calculated 279 (275-295); Potassium 3.6 mMol/L (3.4-5.1); Sodium 135 mMol/L (136-145); eGFR > 60 See Note
[2024-08-31] MEDS: INSULIN GLARGINE (Lantus) 5 UNIT/0.05 ML (PER 5 UNITS) 20 UNIT SC (08:17)
[2024-08-31] MEDS: INSULIN LISPRO (AdmeLOG) 1 UNIT/0.01 ML UNIT SC ×3 (08:17→17:16)
[2024-08-31] MEDS: TAMSULOSIN HCL 0.4 MG CAPSULE PO (08:18)
[2024-08-31] MEDS: FINASTERIDE 5 MG TABLET PO (08:18)
[2024-08-31] MEDS: APIXABAN 2.5 MG TABLET 5 MG PO (08:19)
[2024-08-31] MEDS: Lisinopril 20 MG TABLET 40 MG PO (08:19)
[2024-08-31] MEDS: carVEDILOL 12.5 MG TABLET PO ×2 (08:19→17:16)
[2024-08-31] MEDS: amLODIPine BESYLATE 5 MG TABLET PO (08:20)
[2024-08-31] MEDS: FUROSEMIDE INJ 10 MG/ML 4ML VIAL 40 MG IVP (08:20)
[2024-08-31] MEDS: AZITHROMYCIN INJ 500 MG in SODIUM CHLORIDE 0.9% 250 ML 250 ML 250 MG IV (09:37)
--- NOTE | 2024-08-31 14:38 | PC.RT ---
Dr. Ray requesting SS to confirm with Zohra Boyer at [facility] if they can administer IV antibiotics for 7 days, PICC line or peripheral. SS contacted Pippa Boyer at the [facility] [phone], she stated SS must contact FELIPE Avery to review patient's clinical information on 09/02/24 after 9AM. FELIPE is unavailable weekends.
--- NOTE | 2024-08-31 14:59 | PD.RESPRO ---
Documentation for date of: 08/31/24 Subjective Subjective Interval history: Patient was seen and examined at bedside this AM. No acute events overnight. Patient tolerating diet, adequate urine output and mentation is at baseline. On Meropenem, improving clinically. legal services professional reached out to SNF, they are unable to confirm if they can place a peripheral line for the patient to complete IV antibiotic course. Will schedule PICC line placement for Monday. Eliquis on HOLD. AC switched to therapeutic Lovenox until tomorrow. Exam Vital Signs Temp Pulse Resp BP Pulse Ox O2 Del Method O2 Flow Rate 97.8 F 82 16 129/83 96 Room Air 0 08/31/24 12:00 08/31/24 12:00 08/31/24 12:00 08/31/24 12:00 08/31/24 12:00 08/31/24 12:00 08/30/24 16:00 FiO2 21 08/29/24 23:52 Narrative Exam Constitutional Alert, oriented x3. Obese HEENT Vision grossly intact. Patent nares. Trachea midline. Respiratory Chest normal on inspection and clear to auscultation bilaterally. Cardiovascular S1 and S2 audible, RRR. No murmurs or carotid bruit. No gross JVD. Abdominal Soft and non tender to palpation in all quadrants. Protuberant. BS + Genitourinary No bladder tenderness, no flank pain. Normal to palpation. Musculoskeletal Extremities tone within normal limits. No LE edema. B/L LE compression wrapping in place Neurological CN II - XII grossly intact. Extremity motor and sensation grossly intact. Skin Warm, dry and intact. No apparent lesions. Psychiatric Patient has a good affect, is cooperative. Objective Labs 09/01/24 04:14 09/01/24 04:14 Labs: Laboratory Results - last 24 hr 08/31/24 04:20 WBC 15.4 H RBC 5.15 Hgb 16.1 H Hct 46.0 MCV 89 MCH 31.3 MCHC 35.0 RDW Std Deviation 46.6 H Plt Count 99 L Neut % (Auto) 67 Lymph % (Auto) 15 [place] % (Auto) 17 H Eos % (Auto) 0 Baso % (Auto) 0 Neut # (Auto) 10.3 H Lymph # (Auto) 2.4 [place] # (Auto) 2.6 H Eos # (Auto) 0.0 Baso # (Auto) 0.1 Immature Gran # (Auto) 0.09 H Absolute Nucleated RBC 0.00 Immature Gran % 1 H Nucleated RBC % 0 Sodium 135 L Potassium 3.6 Chloride 100 Carbon Dioxide 29.7 Anion Gap 5 L BUN 22 Creatinine 1.0 Estim Creat Clear Calc 85.0 eGFR > 60 BUN/Creatinine Ratio 22 H Glucose 199 H Calculated Osmolality 279 Calcium 8.0 L Quality Measures Quality Measures sepsis (Was sent to rule out sepsis secondary to UTI from [facility]) Current suspected stage: sepsis Possible source: pulmonary and genitourinary Blood cultures ordered: yes Antibiotic ordered: Yes Advance care planning discussed with:: patient Assessment & Plan Assessment Current Active Medications: Generic Name Dose Route Start Last Admin Trade Name Freq PRN Reason Stop Dose Admin Acetaminophen 650 mg 08/29/24 19:17 Acetaminophen 325 Mg Tablet PO 09/28/24 19:16 Q6H PRN Fever >101.5 Amlodipine Besylate 5 mg 08/30/24 09:00 08/31/24 08:20 Amlodipine Besylate 5 Mg Tablet PO 09/29/24 08:59 5 mg QDAY NITIN Administration Apixaban 5 mg 08/30/24 09:00 08/31/24 08:19 Apixaban 2.5 Mg Tablet PO 09/29/24 08:59 5 mg BID NITIN Administration Carvedilol 12.5 mg 08/30/24 08:00 08/31/24 08:19 Carvedilol 12.5 Mg Tablet PO 09/29/24 07:59 12.5 mg BIDWM NITIN Administration Dextrose 25 ml 08/29/24 20:30 Dextrose 50%-Water Inj 50 Ml Syringe IV 09/28/24 20:29 Q15MIN PRN BG 50-70 responsive npo pt Dextrose 50 ml 08/29/24 20:30 Dextrose 50%-Water Inj 50 Ml Syringe IV 09/28/24 20:29 Q15MIN PRN BG <50 OR BG <70 & pt unresponsive Enoxaparin Sodium 60 mg 08/31/24 21:00 Enoxaparin Sod Inj 60 Mg/0.6 Ml Syringe SC 09/15/24 21:00 BID NITIN Protocol Finasteride 5 mg 08/30/24 09:00 08/31/24 08:18 Finasteride 5 Mg Tablet PO 09/29/24 08:59 5 mg QDAY NITIN Administration Furosemide 40 mg 08/30/24 09:00 08/31/24 08:20 Furosemide Inj 10 Mg/Ml 4ml Vial IVP 09/29/24 08:59 40 mg QDAY NITIN Administration Glucagon 1 mg 08/29/24 20:30 Glucagon Inj 1 Mg Vial IM Q15MIN PRN BG <70, and no IV access Guaifenesin/Codeine Phosphate 10 ml 08/30/24 23:51 08/31/24 13:29 Guaifenesin/Cod Syrup 5 Ml Udc PO 09/29/24 23:50 10 ml Q4HR PRN Administration COUGH Protocol Azithromycin 500 mg/ Sodium 250 mls @ 250 mls/hr 08/29/24 09:00 08/31/24 09:37 Chloride IV 09/05/24 08:59 250 mls/hr QDAY NITIN Administration Meropenem 1,000 mg/ Sodium 50 mls @ 100 mls/hr 08/30/24 16:15 08/31/24 13:28 Chloride IV 09/06/24 16:14 100 mls/hr Q8HR NITIN Administration Insulin Glargine 20 unit 08/30/24 09:00 08/31/24 08:17 Insulin Glargine (Lantus) 5 Unit/0.05 Ml (Per 5 Units) SC 09/29/24 08:59 20 unit QDAY NITIN Administration Insulin Human Lispro 0 unit 08/30/24 07:30 08/31/24 11:23 Insulin Lispro (Admelog) 1 Unit/0.01 Ml Unit SC 09/29/24 07:29 3 unit AC NITIN Administration Protocol Lisinopril 40 mg 08/30/24 09:00 08/31/24 08:19 Lisinopril 20 Mg Tablet PO 09/29/24 08:59 40 mg QDAY NITIN Administration Tamsulosin HCl 0.4 mg 08/30/24 09:00 08/31/24 08:18 Tamsulosin Hcl 0.4 Mg Capsule PO 09/29/24 08:59 0.4 mg QDAY NITIN Administration Plan Sepsis - resolved secondary to Acute UTI Community acquired Pneumonia Assessment: SIRS criteria met (Temp >38?C, WBC >12, HR normal), qSOFA score 1 (SBP <100), elevated lactate (2.8), procalcitonin 0.57, fever at SNF, UA with pyuria, CXR with bibasilar pneumonia - Initially started on Rocephin and azithromycin for coverage of both UTI and pneumonia. - However, upon chart review, he is noted to have history of ESBL UTI. Will DC Rocephin and switch to meropenem at this time. 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. PICC line for Meropenem on Monday Diet: Consistent carb diet LOW Lines: pIVs GI Prophylaxis: Thrombo Prophylaxis: Code status: FULL CODE Plan of care discussed with attending Ashok Hilliard M.D. PGY2 Disclaimer: Minor errors in thermal spray operator may be present as this note was dictated using voice recognition software. Attending Provider Attestation/Addendum Alicia Rosario DO, attest that I was physically present for the steven portions of the service and evaluated the patient with the resident and I reviewed and discussed the case with the resident and agree with the resident's findings and plans of care as documented above Patient seen and eval this a.m. He states that he is feeling well. No acute events overnight. Patient noted to have gram-negative rods growing in blood culture, likely secondary to urinary source which has grown ESBL E. coli. Patient remains on meropenem at this time. Will await final cultures and sensitivities of blood culture. Patient will likely benefit from PICC line versus peripheral IV out patient to receive 7 more days of antibiotics from Monday. Will have social research assistant reach out to care facility to arrange for outpatient antibiotics. Patient can be transition from meropenem 1 g every 8 to ertapenem 1 g daily. Patient reports improvement of his back pain. Pending physical therapy. No focal neurological deficits. Continue current management otherwise. Will Eliquis to Lovenox full dose in anticipation of PICC line placement on Monday
[2024-08-31] MEDS: ENOXAPARIN SOD INJ 60 MG/0.6 ML SYRINGE SC (21:29)
[2024-09-01] VITALS (12 sets, daily range): BP systolic 135–169; BP diastolic 79–98; PULSE 82–91; RESP 16–20; TEMP 36.1–37.1; O2SAT 91–94
[2024-09-01 05:38] LABS: Basophils # (Auto) 0.1 Thou/mm3 (0.0-0.2); Basophils % (Auto) 1 % (0-2.5); Eosinophils # (Auto) 0.2 Thou/mm3 (0.0-0.5); Eosinophils % (Auto) 1 % (0-10); Hematocrit 45.4 % (41.0-53.0); Hemoglobin 15.6 g/dL (13.5-16.0); Immature Granulocytes % (Auto) 1 % (0-0); Immature Granulocytes Auto 0.12 Thou/mm3 (0.00-0.00); Lymphocytes # (Auto) 2.2 Thou/mm3 (1.0-4.8); Lymphocytes % (Auto) 17 % (10-50); Mean Corpuscular HGB Conc 34.4 g/dl (31.0-37.0); Mean Corpuscular Volume 90 fL (80-100); Monocytes # (Auto) 2.3 Thou/mm3 (0.0-0.8); Monocytes % (Auto) 17 % (0-12); Neutrophils # (Auto) 8.3 Thou/mm3 (1.8-7.7); Neutrophils % (Auto) 63 % (37-80); Nucleated Red Blood Cell % 0 /100 WBC (0); Platelet Count 117 Thou/mm3 (140-440); RDW Standard Deviation 47.2 fL (35.1-43.9); Red Blood Count 5.04 Miln/mm3 (4.50-5.90); White Blood Count 13.2 Thou/mm3 (3.8-10.6)
[2024-09-01] MEDS: MEROPENEM INJ 1,000 MG in SODIUM CHLORIDE 0.9% (Popper) 50 ML 100 MG IV ×3 (05:48→22:23)
[2024-09-01 05:57] LABS: Anion Gap 5 (7-16); BUN/Creatinine Ratio 27 Ratio (12-20); Blood Urea Nitrogen 24 mg/dL (9-23); Carbon Dioxide 30.7 mMol/L (20.0-31.0); Chloride 100 mMol/L (98-107); Creatinine (Component) 0.9 mg/dL (0.6-1.3); Estimated Creatinine Clearance 94.5 mL/min (>60); Glucose 187 mg/dL (74-106); Osmolality,Calculated 280 (275-295); Potassium 3.6 mMol/L (3.4-5.1); Sodium 136 mMol/L (136-145); eGFR > 60 See Note
[2024-09-01] MEDS: FUROSEMIDE INJ 10 MG/ML 4ML VIAL 40 MG IVP ×2 (08:09→22:23)
[2024-09-01] MEDS: INSULIN LISPRO (AdmeLOG) 1 UNIT/0.01 ML UNIT SC ×4 (08:10→22:40)
[2024-09-01] MEDS: INSULIN GLARGINE (Lantus) 5 UNIT/0.05 ML (PER 5 UNITS) 20 UNIT SC (08:10)
[2024-09-01] MEDS: Lisinopril 20 MG TABLET 40 MG PO (08:11)
[2024-09-01] MEDS: ENOXAPARIN SOD INJ 60 MG/0.6 ML SYRINGE SC (08:11)
[2024-09-01] MEDS: carVEDILOL 12.5 MG TABLET PO ×2 (08:11→17:02)
[2024-09-01] MEDS: amLODIPine BESYLATE 5 MG TABLET PO (08:12)
[2024-09-01] MEDS: TAMSULOSIN HCL 0.4 MG CAPSULE PO (08:12)
[2024-09-01] MEDS: FINASTERIDE 5 MG TABLET PO (08:12)
[2024-09-01 09:17] LABS: Lactate (Lactic Acid) 1.6 mMol/L (0.4-2.0)
[2024-09-01 09:54] LABS: Magnesium 1.9 mg/dL (1.6-2.6)
[2024-09-01] MEDS: Magnesium Sulfate 4 GM Ivpb 4 GM/50 ML BAG IV (10:51)
--- NOTE | 2024-09-01 12:24 | PC.SS ---
COMPUTER ARCHITECT spoke to Dr. Ray regarding Doctor wanting to see what [facility] can do about pt being discharged with IV Antibiotics and COMPUTER ARCHITECT called [facility] and the GRIEVANCE AND APPEALS COORDINATOR stated that we would have to wait till monday to speak to the RN who will be on site regarding what the RN prefers for discharge, COMPUTER ARCHITECT updated Dr. Ray.
--- NOTE | 2024-09-01 12:26 | PD.RESPRO ---
Documentation for date of: 09/01/24 Subjective Subjective Interval history: 09/01/2024: No acute overnight events to report. Patient seen and examined in hospital bed reports improvement in presenting symptoms and denies having concerning cardiac symptoms at this time. Patient updated regarding his blood and urine cultures being positive for ESBL E. coli. Patient will require a PICC line placed on a Saturday 09/02; however, pending approval from the facility that he will be discharged to and whether or not they are able to take care of picklines. Patient continues to be on IV meropenem for the ESBL E. coli. As noted on CT scan patient has a left kidney mass which will require outpatient MRI follow-up. Will hold the patient's Lovenox in anticipation of PICC line placement. Exam Vital Signs Temp Pulse Resp BP Pulse Ox O2 Del Method O2 Flow Rate 97.0 F 90 18 135/87 H 94 L Room Air 0 09/01/24 11:59 09/01/24 11:59 09/01/24 11:59 09/01/24 11:59 09/01/24 11:59 09/01/24 11:59 08/30/24 16:00 FiO2 21 08/29/24 23:52 Narrative Exam Constitutional Alert, oriented x3. Obese HEENT Vision grossly intact. Patent nares. Trachea midline. Respiratory Chest normal on inspection and clear to auscultation bilaterally. Cardiovascular S1 and S2 audible, RRR. No murmurs or carotid bruit. No gross JVD. Abdominal Soft and non tender to palpation in all quadrants. Protuberant. BS + Genitourinary No bladder tenderness, no flank pain. Normal to palpation. Musculoskeletal Extremities tone within normal limits. No LE edema. B/L LE compression wrapping markings noted Neurological CN II - XII grossly intact. Extremity motor and sensation grossly intact. Skin Warm, dry and intact. No apparent lesions. Psychiatric Patient has a good affect, is cooperative. Objective Labs 09/02/24 04:45 09/02/24 04:45 Labs: Laboratory Results - last 24 hr 09/01/24 09/01/24 04:14 08:55 WBC 13.2 H RBC 5.04 Hgb 15.6 Hct 45.4 MCV 90 MCH 31.0 MCHC 34.4 RDW Std Deviation 47.2 H Plt Count 117 L Neut % (Auto) 63 Lymph % (Auto) 17 [place] % (Auto) 17 H Eos % (Auto) 1 Baso % (Auto) 1 Neut # (Auto) 8.3 H Lymph # (Auto) 2.2 [place] # (Auto) 2.3 H Eos # (Auto) 0.2 Baso # (Auto) 0.1 Immature Gran # (Auto) 0.12 H Absolute Nucleated RBC 0.00 Immature Gran % 1 H Nucleated RBC % 0 Sodium 136 Potassium 3.6 Chloride 100 Carbon Dioxide 30.7 Anion Gap 5 L BUN 24 H Creatinine 0.9 Estim Creat Clear Calc 94.5 eGFR > 60 BUN/Creatinine Ratio 27 H Glucose 187 H Calculated Osmolality 280 Lactic Acid 1.6 Calcium 8.0 L Magnesium 1.9 Quality Measures Quality Measures sepsis (Was sent to rule out sepsis secondary to UTI from [facility]) Current suspected stage: sepsis Possible source: pulmonary and genitourinary Blood cultures ordered: yes Antibiotic ordered: Yes Advance care planning discussed with:: patient Assessment & Plan Assessment Current Active Medications: Generic Name Dose Route Start Last Admin Trade Name Freq PRN Reason Stop Dose Admin Acetaminophen 650 mg 08/29/24 19:17 Acetaminophen 325 Mg Tablet PO 09/28/24 19:16 Q6H PRN Fever >101.5 Amlodipine Besylate 5 mg 08/30/24 09:00 09/01/24 08:12 Amlodipine Besylate 5 Mg Tablet PO 09/29/24 08:59 5 mg QDAY NITIN Administration Apixaban 5 mg 08/30/24 09:00 08/31/24 08:19 Apixaban 2.5 Mg Tablet PO 09/29/24 08:59 5 mg BID NITIN Administration Carvedilol 12.5 mg 08/30/24 08:00 09/01/24 08:11 Carvedilol 12.5 Mg Tablet PO 09/29/24 07:59 12.5 mg BIDWM NITIN Administration Dextrose 25 ml 08/29/24 20:30 Dextrose 50%-Water Inj 50 Ml Syringe IV 09/28/24 20:29 Q15MIN PRN BG 50-70 responsive npo pt Dextrose 50 ml 08/29/24 20:30 Dextrose 50%-Water Inj 50 Ml Syringe IV 09/28/24 20:29 Q15MIN PRN BG <50 OR BG <70 & pt unresponsive Enoxaparin Sodium 60 mg 08/31/24 21:00 09/01/24 08:11 Enoxaparin Sod Inj 60 Mg/0.6 Ml Syringe SC 09/15/24 21:00 60 mg BID NITIN Administration Protocol Finasteride 5 mg 08/30/24 09:00 09/01/24 08:12 Finasteride 5 Mg Tablet PO 09/29/24 08:59 5 mg QDAY NITIN Administration Furosemide 40 mg 09/01/24 21:00 Furosemide Inj 10 Mg/Ml 4ml Vial IVP 10/01/24 20:59 BID NITIN Glucagon 1 mg 08/29/24 20:30 Glucagon Inj 1 Mg Vial IM Q15MIN PRN BG <70, and no IV access Guaifenesin/Codeine Phosphate 10 ml 08/30/24 23:51 08/31/24 21:28 Guaifenesin/Cod Syrup 5 Ml Udc PO 09/29/24 23:50 10 ml Q4HR PRN Administration COUGH Protocol Meropenem 1,000 mg/ Sodium 50 mls @ 100 mls/hr 08/30/24 16:15 09/01/24 05:48 Chloride IV 09/06/24 16:14 100 mls/hr Q8HR NITIN Administration Magnesium Sulfate 4 gm in 50 mls @ 12.5 mls/hr 09/01/24 10:22 09/01/24 10:51 Magnesium Sulfate Ivpb IV 09/01/24 14:21 12.5 mls/hr X1 ONE Administration Insulin Glargine 20 unit 08/30/24 09:00 09/01/24 08:10 Insulin Glargine (Lantus) 5 Unit/0.05 Ml (Per 5 Units) SC 09/29/24 08:59 20 unit QDAY NITIN Administration Insulin Human Lispro 0 unit 08/30/24 07:30 09/01/24 11:35 Insulin Lispro (Admelog) 1 Unit/0.01 Ml Unit SC 09/29/24 07:29 3 unit AC NITIN Administration Protocol Lisinopril 40 mg 08/30/24 09:00 09/01/24 08:11 Lisinopril 20 Mg Tablet PO 09/29/24 08:59 40 mg QDAY NITIN Administration Tamsulosin HCl 0.4 mg 08/30/24 09:00 09/01/24 08:12 Tamsulosin Hcl 0.4 Mg Capsule PO 09/29/24 08:59 0.4 mg QDAY NITIN Administration Plan #Sepsis - resolved secondary to #ESBL UTI #Bacteremia #Community acquired Pneumonia Assessment: SIRS criteria met (Temp >38?C, WBC >12, HR normal), qSOFA score 1 (SBP <100), elevated lactate (2.8), procalcitonin 0.57, fever at SNF, UA with pyuria, CXR with bibasilar pneumonia Initially started on Rocephin and azithromycin for coverage of both UTI and pneumonia. History of ESBL UTI. Will DC Rocephin and switch to meropenem at this time. Renal US is suspicious for solid nodule left kidney 3.5 x 2.6 x 1.8 cm Urine and blood cultures positive for ESBL E. 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 PICC line for Meropenem on Monday Diet: Consistent carb diet LOW Lines: pIVs GI Prophylaxis: Not needed DVT prophylaxis: On therapeutic Lovenox, will hold in anticipation of PICC line placement Code status: FULL CODE Patient seen and assessed with attending Dr. Cory Cooney, PGY-1 Attending Provider Attestation/Addendum I, Alicia Ray DO, attest that I was physically present for the steven portions of the service and evaluated the patient with the resident and I reviewed and discussed the case with the resident and agree with the resident's findings and plans of care as documented above Patient seen and eval this a.m. He has no acute events overnight and no acute complaints. Case discussed with social media manager regarding possibly out patient IV antibiotics at his skilled nursing. However, it is unclear if they are able to provide IV antibiotics and will need to consult with their nurse tomorrow. Will hold off on PICC line placement until confirmed with skilled nursing. Blood cultures have speciated ESBL E. coli, similar to urine culture. Patient otherwise has been febrile. Will continue current management.
[2024-09-02] VITALS (11 sets, daily range): BP systolic 119–168; BP diastolic 81–100; PULSE 79–93; RESP 15–97; TEMP 36.1–36.5; O2SAT 90–95; BMI 46.8; BMI 11.0
--- NOTE | 2024-09-02 | XR_ITS ---
Examination: Ultrasound-guided needle placement right basilic vein. Dual-lumen central line placement (PICC line). Fluoroscopy AP chest, portable, single view Exam date and time:September 02, 2024 at 1227 hours INDICATIONS: Need for long-term intravenous antibiotic therapy for bacteremia A timeout was completed verifying correct patient, procedure, site, positioning Informed consent provided Technique: The patient's site was prepped and draped in sterile fashion. Maximum Sterile Barrier Technique used including cap, mask, sterile gown, sterile gloves, and sterile full body drape. If ultrasound technique used: sterile gel and sterile probe covers. Hand Hygiene performed using proper scrub, soap and water, or alcohol-based hand rub. Site right portable apparatus utilized to confirm patency of the right basilic vein Utilizing ultrasonographic guidance successful 21-gauge needle puncture into the right basilic vein Ultrasound images recorded and stored. 5 cc 1% lidocaine administered for local anesthetic. Successful micropuncture with a 21-gauge needle is performed. 0.18 wire guide is then introduced into the SVC under fluoroscopic guidance. Dual-lumen catheter dilator is then introduced, followed by the catheter in the SVC and proper position under fluoroscopic guidance. Successful aspiration of blood and flushing with heparinized saline is then performed in the 2 venous limbs. The catheter sutured in place. Findings: Under fluoroscopy, the tip of the catheter is in good position in the vena cava. Portable chest x-ray, post line placement is ordered. Estimated blood loss 3 cc The patient tolerated the procedure well and was in stable and satisfactory condition at completion of the procedure Impression: Successful ultrasound-guided needle placement right basilic vein Successful placement of dual lumen central line, percutaneous Fluoroscopy 0.1 minute radiation dose 3.59 milligray 1 spot fluoroscopic chest film. AP chest completion procedure demonstrates satisfactory position central line. May use central line.
[2024-09-02] MEDS: MEROPENEM INJ 1,000 MG in SODIUM CHLORIDE 0.9% (Popper) 50 ML 100 MG IV ×2 (05:14→13:51)
[2024-09-02 05:16] LABS: Basophils # (Auto) 0.1 Thou/mm3 (0.0-0.2); Basophils % (Auto) 1 % (0-2.5); Eosinophils # (Auto) 0.2 Thou/mm3 (0.0-0.5); Eosinophils % (Auto) 2 % (0-10); Hematocrit 47.2 % (41.0-53.0); Hemoglobin 16.3 g/dL (13.5-16.0); Immature Granulocytes % (Auto) 1 % (0-0); Immature Granulocytes Auto 0.17 Thou/mm3 (0.00-0.00); Lymphocytes # (Auto) 2.4 Thou/mm3 (1.0-4.8); Lymphocytes % (Auto) 19 % (10-50); Mean Corpuscular HGB Conc 34.5 g/dl (31.0-37.0); Mean Corpuscular Hemoglobin 30.8 pg (25.0-35.0); Mean Corpuscular Volume 89 fL (80-100); Monocytes # (Auto) 1.7 Thou/mm3 (0.0-0.8); Monocytes % (Auto) 14 % (0-12); Neutrophils # (Auto) 7.9 Thou/mm3 (1.8-7.7); Neutrophils % (Auto) 64 % (37-80); Nucleated Red Blood Cell % 0 /100 WBC (0); Platelet Count 145 Thou/mm3 (140-440); RDW Standard Deviation 45.7 fL (35.1-43.9); Red Blood Count 5.29 Miln/mm3 (4.50-5.90); White Blood Count 12.4 Thou/mm3 (3.8-10.6)
[2024-09-02 05:35] LABS: Alanine Aminotransferase 39 U/L (10-49); Albumin, Serum 3.2 gm/dL (3.4-4.8); Albumin/Globulin Ratio 1.1 (1.2-2.2); Alkaline Phosphatase 101 U/L (46-116); Anion Gap 5 (7-16); Aspartate Amino Transferase 29 U/L (0-34); BUN/Creatinine Ratio 28 Ratio (12-20); Bilirubin,Total 0.9 mg/dL (0.3-1.2); Blood Urea Nitrogen 22 mg/dL (9-23); Calcium 8.2 mg/dL (8.3-10.6); Calcium (Corrected) 8.8 mg/dL (8.5-10.1); Carbon Dioxide 33.5 mMol/L (20.0-31.0); Chloride 101 mMol/L (98-107); Creatinine (Component) 0.8 mg/dL (0.6-1.3); Estimated Creatinine Clearance 106.3 mL/min (>60); Glucose 231 mg/dL (74-106); Osmolality,Calculated 287 (275-295); Potassium 3.4 mMol/L (3.4-5.1); Sodium 139 mMol/L (136-145); Total Protein 6.2 gm/dL (5.7-8.2); eGFR > 60 See Note
[2024-09-02] MEDS: INSULIN LISPRO (AdmeLOG) 1 UNIT/0.01 ML UNIT SC ×3 (07:43→17:26)
[2024-09-02] MEDS: Lisinopril 20 MG TABLET 40 MG PO (08:55)
[2024-09-02] MEDS: FUROSEMIDE INJ 10 MG/ML 4ML VIAL 40 MG IVP (08:55)
[2024-09-02] MEDS: carVEDILOL 12.5 MG TABLET PO ×2 (08:55→17:25)
[2024-09-02] MEDS: POTASSIUM CHLORIDE 20 mEq TABCR 40 MEQ PO (08:55)
[2024-09-02] MEDS: FINASTERIDE 5 MG TABLET PO (08:55)
[2024-09-02] MEDS: TAMSULOSIN HCL 0.4 MG CAPSULE PO (08:56)
[2024-09-02] MEDS: amLODIPine BESYLATE 5 MG TABLET 10 MG PO (08:56)
--- NOTE | 2024-09-02 09:40 | PC.SS ---
Follow up note: Patient will d/c back to [facility]. SS contacted [facility] to see if they can take patient back on a picc line for meropenem for one week. They agreed. They need to provide this in the a.m. and can take patient back today. SS updated physician team.
[2024-09-02] MEDS: INSULIN LISPRO (AdmeLOG) 1 UNIT/0.01 ML UNIT 2 UNIT SC ×2 (11:46→17:25)
[2024-09-02] MEDS: LIDOCAINE INJ PF 1% 30 ML VIAL 5 ML INFL (13:04)
[2024-09-02] MEDS: HEPARIN SOD LOCK SYR 100 UNIT/ML 500 UNIT STFIELD (13:10)
--- NOTE | 2024-09-02 13:39 | ESDS_ITS ---
<Statement entered by Alicia Ray DO - 09/03/24 08:33> I, Alicia Ray DO, attest that I was physically present for the steven portions of the service and evaluated the patient with the resident and I reviewed and discussed the case with the resident and agree with the resident's findings and plans of care as documented above Planned Discharge Date 09/02/24 DS: Providers Provider Date of admission: 08/29/24 19:17 Primary care physician: Physician No Primary/Family Admitting Provider: Gustavo Brice MD Attending Provider on Admission: Alicia Ray DO Consults: 08/29/24 20:40 Referral Physical Therapy Routine Comment: Physician Instructions: Attending Provider on DC: Reid Cooney MD Discharging Provider: Reid Cooney MD DS: Diagnosis Problem List Completed Was Problem List Reviewed/Reconciled?: Yes Hospital Course Hospital Course Hospital course: 78-year-old male with past medical history of type 2 diabetes, hypertension, BPH, cardiac arrhythmias, hyperlipidemia, ANDI, RA, psoriasis, chronic bilateral lower extremity edema, morbid obesity, status post CVA presenting to the ED on 08/29 with chief complaint of weakness. In the ED, patient was afebrile, normal heart, respiratory rate 20, normotensive. Pertinent lab findings included WBC 11.9, creatinine 1.3, lactic acid 2.8, urinalysis showed pyuria bacteriuria. Chest x-ray revealed bibasilar pneumonia with mild heart failure pattern and CT head was negative. EKG also compartments atrial fibrillation patient was admitted for sepsis secondary to UTI and pneumonia. Urine and blood cultures resulted in positive for ESBL E. coli and patient's IV antibiotics were switched from Rocephin to meropenem. Patient had scheduled PICC line placement and anticoagulation for atrial fibrillation was held. On Saturday 09/[address] to [address] PICC line and confirmed with the patient's care facility [facility] that they will be able to give the patient IV antibiotics. Patient will be discharged with the following strict instructions. Continue with Ertapenem 1g IV QDAY until 09/08/24 Please stop taking empagliflozin 25 mg tablet by mouth daily Please stop taking levofloxacin 500 mg tablet Continue all other home medications as prescribed Follow-up with your PCP within 1 week after discharge Ask your PCP for MRI for L kidney mass noted on CT If your symptoms worsen or if you develop new fever/chills, chest pain, shortness of breath, diarrhea or bleeding - please come back to the ED immediately. Hospital Diagnosis: #ESBL UTI #Bacteremia #Community acquired Pneumonia #Atrial Fibrillation NVR #Chornic Thrombocytopenia #Diabetes Mellitus Type 2 #Primary Hypertension #Ground level Falls #Generalized Weakness Reid Curtisharitha, PGY-1 Status at Discharge Overall status at discharge: patient is progressing back to baseline Time Spent with Patient Time attestation: Total time spent providing and/or coordinating discharge services: 45 minutes Time spent: Greater than 30 minutes Exam Vital Signs Temp Pulse Resp BP Pulse Ox O2 Del Method O2 Flow Rate 97.6 F 89 22 H 127/81 92 L Room Air 0 09/02/24 08:00 09/02/24 13:10 09/02/24 13:10 09/02/24 13:10 09/02/24 13:10 09/02/24 13:10 08/30/24 16:00 FiO2 21 08/29/24 23:52 Narrative Exam Constitutional Alert, oriented x3. Obese HEENT Vision grossly intact. Patent nares. Trachea midline. Respiratory Chest normal on inspection and clear to auscultation bilaterally. Cardiovascular S1 and S2 audible, RRR. No murmurs or carotid bruit. No gross JVD. Abdominal Soft and non tender to palpation in all quadrants. Protuberant. BS + Genitourinary No bladder tenderness, no flank pain. Normal to palpation. Musculoskeletal Extremities tone within normal limits. No LE edema. B/L LE compression wrapping markings noted Neurological CN II - XII grossly intact. Extremity motor and sensation grossly intact. Skin Warm, dry and intact. No apparent lesions. Psychiatric Patient has a good affect, is cooperative. Discharge Plan Plan Patient Disposition: Xfer Skilled Nsg Fac (SNF) Care Plan Goals: Continue with Ertapenem 1g IV QDAY until 09/08/24 Please stop taking empagliflozin 25 mg tablet by mouth daily Please stop taking levofloxacin 500 mg tablet Continue all other home medications as prescribed Follow-up with your PCP within 1 week after discharge Ask your PCP for MRI for L kidney mass noted on CT If your symptoms worsen or if you develop new fever/chills, chest pain, shortness of breath, diarrhea or bleeding - please come back to the ED imme diately. Prescriptions/Referrals Prescriptions/Med Rec: Continued silodosin [Rapaflo] 8 mg capsule 8 mg PO QDAY Rx Instructions: must administer with a meal/food acetaminophen 650 mg tablet extended release 650 mg PO Q4HR PRN (Reason: pain) Patient Comments: Give 650 mg by mouth every 4 hours as needed for pain related to benign prostatic hyperplasia without lower urinary tract infection. amlodipine 5 mg tablet 5 mg PO HS Patient Comments: Give 1 tablet by mouth at bedtime related to ESSENTIAL (PRIMARY) HYPERTENSION. Hold for BP under 110 systolic apixaban 5 mg tablet 5 mg PO BID furosemide 40 mg tablet 40 mg PO TID Patient Comments: Give 1 tablet by mouth three times a day for swelling to lower extremities related to essential (primary) hypertension. potassium chloride 20 mEq tablet extended release 20 meq PO QDAY metoprolol succinate 100 mg tablet extended release 24 hr 100 mg PO BID loperamide 2 mg tablet 2 mg PO Q4H PRN (Reason: loose stool) Rx Instructions: administer after each loose stool until symptoms controlled; do not exceed 8 mg per 24 hrs lisinopril 40 mg tablet 40 mg PO QDAY tamsulosin 0.4 mg capsule 0.8 mg PO QDAY finasteride 5 mg tablet 5 mg PO QDAY carboxymethylcellulose sodium 0.5 % dropperette 1 drp Both eyes QID cholecalciferol (vitamin D3) [Vitamin D3] 125 mcg (5,000 unit) tablet 5,000 unit PO QDAY clobetasol 0.05 % solution 1 applic topical QDAY Patient Comments: Apply to scalp and behind ears topically one time a day for affected area to scalp for 2 weeks apply 4-6 drops to affected areas on scalp and behind ears. insulin glargine [Lantus U-100 Insulin] 100 unit/mL solution 20 unit subcut QDAY melatonin 5 mg tablet 6 mg PO HS Patient Comments: Give 6mg by mouth at bedtime related to Sleep Apnea carvedilol 12.5 mg tablet 12.5 mg PO BID Rx Instructions: must administer with a meal/food ketotifen fumarate 0.025 % (0.035 %) drops 1 drp ophthalmic (eye) BID Rx Instructions: administer at least 8 hours apart Humulin R Regular U-100 Insuln 100 unit/mL solution 1 sliding scale dose subcut USEASDIRECTD Allergy Eye (naphazoline-phen) 0.025-0.3 % drops 2 drp ophthalmic (eye) QDAY PRN (Reason: allergy symptoms) docusate sodium 100 mg capsule 100 mg PO QDAY PRN (Reason: constipation) hydrocodone-acetaminophen 5-325 mg tablet 1 tab PO Q6H PRN (Reason: pain) Discontinued empagliflozin 25 mg tablet 25 mg PO QDAY levofloxacin 500 mg tablet 500 mg PO QDAY Referrals: No Primary/Family,Physician [Primary Care Provider] - Patient/Caregiver Discharge Instructions Education Materials: Infec ESBL, Caring for Your PICC Dc, Flushing Your PICC Line at Home Print Language: Bulgarian Stand Alone Forms: [employer] Award Info., Patient Portal Info Letter Discharge Order Discharge Orders: Discharge (Routine); Ordered 09/02/24 Ordered By: Reid Cooney Quality Discharge Quality Measures VTE prophylaxis
== END 2024-09-02 18:00 | disposition skilled nursing facility (03) | DRG 871 ==
LOC: SERX 18:55 → SERHOLD 19:24 → S3NX 22:47
PROVIDERS: Student in an Organized Health Care Education/Training Program; Admitting Provider Internal Medicine; Emergency Provider Emergency Medicine; Visit Provider Internal Medicine
DX: A41.9 Sepsis, unspecified organism (principal); J18.9 Pneumonia, unspecified organism; Z68.42 Body mass index [BMI] 45.0-49.9, adult; N39.0 Urinary tract infection, site not specified; E87.20 Acidosis, unspecified; Z16.12 Extended spectrum beta lactamase (ESBL) resistance; L40.9 Psoriasis, unspecified; E66.01 Morbid (severe) obesity due to excess calories; M06.9 Rheumatoid arthritis, unspecified; E78.5 Hyperlipidemia, unspecified; N40.0 Benign prostatic hyperplasia without lower urinary tract symptoms; E11.9 Type 2 diabetes mellitus without complications; I48.91 Unspecified atrial fibrillation; D69.6 Thrombocytopenia, unspecified; I11.0 Hypertensive heart disease with heart failure; I50.9 Heart failure, unspecified; G47.33 Obstructive sleep apnea (adult) (pediatric); N28.89 Other specified disorders of kidney and ureter; W18.30XA Fall on same level, unspecified, initial encounter; N41.9 Inflammatory disease of prostate, unspecified; Z79.01 Long term (current) use of anticoagulants; Z79.84 Long term (current) use of oral hypoglycemic drugs; Z96.653 Presence of artificial knee joint, bilateral; Z87.440 Personal history of urinary (tract) infections; Z86.73 Personal history of transient ischemic attack (TIA), and cerebral infarction without residual deficits
CPT/HCPCS: 36415; 70450; 71045; 76770; 80048; 80053; 81001; 83605; 83615; 83735; 83880; 84100; 84145; 84484; 85025; 85610; 85730; 87040; 87077; 87081; 87086; 87186; 87400; 87811; 93005; 94660; 96365; 96367; 97162; 99285; C1894; J0456; J0696; J1642; J1650; J1815; J1938; J2185; J3475; J3490; J7030; J7050; A9270

== ENCOUNTER 2024-09-17 07:04 | Inpatient (IN) | payer OTHER, SELFPAY ==
[2024-09-17] VITALS (10 sets, daily range): BP systolic 129–195; BP diastolic 75–105; PULSE 72–95; RESP 15–22; TEMP 36.4–37.1; O2SAT 92–96; BMI 45.9; BMI 45.6
--- NOTE | 2024-09-17 | XR_ITS ---
MRI abdomen, without contrast. MRCP Date and time of exam: September 17, 2024 1337 hours INDICATIONS: Right upper abdominal pain epigastric pain several days Technique: Multiple axial and coronal images of the abdomen have been obtained with the Siemens 1.5T MRI scanner. Images obtained included T1 weighted transverse images, T2-weighted transverse images, T2-weighted transverse images fat-suppressed, T2 weighted haste fat suppressed transverse images, T1 weighted images, in and out of phase images, T2-weighted coronal images, breath hold, T2 weighted haze coronal images as well as T2 weighted coronal thick slab images, MRCP. Findings: Distended gallbladder, gallstones Gallbladder wall is thickened and edematous Common hepatic duct is not enlarged Edema around the pancreas 9 mm calculus left ureteropelvic junction without significant hydronephrosis Spleen is not enlarged IMPRESSION: Acute calculus cholecystitis Negative for common hepatic or common bile duct stones Acute pancreatitis
--- NOTE | 2024-09-17 07:08 | EKG_ITS ---
[facility] Test Date: 2024-09-17 Pat Name: MAL RUIZ Department: Room: - Gender: Male Site Monitor: : 1945 Requested By: Dae Martins Order Number: [id number] Reading MD: Dae Martins Measurements Intervals [place] Rate: 86 P: VA: QRS: 1 QRSD: 108 T: 67 QT: 357 QTc: 428 Interpretive Statements ATRIAL FIBRILLATION SEPTAL MYOCARDIAL INFARCTION , OF INDETERMINATE AGE [40+ ms Q WAVE IN V1/V2] Compared to ECG 08/29/2024 17:03:50 Myocardial infarct finding now present /[id number]/S0/[id number].pdf
--- NOTE | 2024-09-17 07:37 | XR_ITS ---
Examination: CT abdomen without contrast. CT abdomen with intravenous contrast. CT pelvis with intravenous contrast. Date and time of exam:September 17, 2024 1015 hours INDICATIONS: Upper abdominal pain epigastric pain beginning 2 days ago CTDI: vol (mGy): 42.7 DLP: (mGycm): 2180 Technique: Multiple 3.0 mm axial noncontrast images of the abdomen have been obtained. Multiple 3.0 mm axial images of the abdomen and pelvis, post intravenous administration 60 cc [id number] 2-D sagittal coronal reconstructions Low dose protocols, automated exposure control, adjustment MA KV according to patient size FINDINGS: Mild enlargement cardiac contour Trace pericardial effusion Liver is mildly irregular in contour, no focal liver lesions Gallstones Peripancreatic edema Spleen is not enlarged Moderate renal parenchymal scar formation Minimal left hydronephrosis 9 mm calculus left ureteropelvic junction Aortic calcification Normal appendix No bowel obstruction No diverticulitis Urinary bladder wall thickening up to 5 mm Mild to moderate prostatomegaly with prostate radiation seeds Prominent osteopenia IMPRESSION: Cholelithiasis Acute pancreatitis Minimal left hydronephrosis, 9 mm calculus left ureteropelvic junction Cystitis
--- NOTE | 2024-09-17 07:38 | XR_ITS ---
Examination: Abdomen sonogram, Limited Date and time of exam: September 10 70,025 0807 hours INDICATIONS: Abdominal pain beginning 2 days ago Technique: Real-time tejada scale transabdominal sonographic images of the upper abdomen obtained. Findings: Gallstones. Normal gallbladder wall Normal common bile duct 0.4 cm Pancreas obscured by bowel gas Liver 15.3 cm irregular contour no focal liver lesions Normal hepatopedal portal venous flow Patent IVC IMPRESSION: Cholelithiasis, negative for cholecystitis Suspect primary hepatocellular disease
--- NOTE | 2024-09-17 07:39 | XR_ITS ---
Examination: AP chest single view TECHNIQUE: AP portable upright chest single view Date and time: September 17, 2024 0800 hours Comparison August 29, 2024 INDICATIONS: Clinical diagnosis free air FINDINGS: No free air beneath the hemidiaphragms Mild enlargement left ventricle Moderate vascular congestion IMPRESSION: No free air beneath the hemidiaphragms
--- NOTE | 2024-09-17 07:42 | EDNOTE_ITS ---
<Statement entered by Marion Cintron MD - 09/19/24 06:14> I, Marion Cintron MD, have reviewed the history, exam, and assessment of the patient. I have evaluated the patient independently and agree with the plan of care documented by [ ]. All diagnostic studies were reviewed and discussed. I confirm the diagnosis as documented by the Resident. I was present during the Medical Decision Making for this patient. The patient's plan of care was created between myself and the Resident and consistent with our discussion of the patient's case. ED Abdominal Pain RME/HPI General Chief Complaint: Abdominal Pain Stated complaint: ABD PAIN Time seen by provider: 09/17/24 07:07 Arrival date/time: 09/17/24 07:04 RME / HPI RME / HPI narrative: The patient is a 78 year old male with PMH significant for type 2 diabetes, hypertension, BPH, cardiac arrhythmias, hyperlipidemia, ANDI, RA, psoriasis, chronic bilateral lower extremity edema, morbid obesity, status post CVA presenting to the ED on 09/17/2024 with chief c/o Abdominal pain for for past couple of days. He reported his pain located more over RUQ and epigastrium, continuous, 8/10 in intensity, non radiating, exacerbated by eating and no relieving factor. He had normal bowel movement 1 day ago, and had 1 episode of vomiting yesterday with continued dysuria. He admitted chronic leg swelling but denied any fever, chills, headache, dizziness, chest pain or SOB. Related Data Home Medications ?Medication ?Instructions ?Recorded ?Confirmed acetaminophen 650 mg 650 mg PO Q4HR PRN pain 08/2308/29/24 tablet,extended release amlodipine 5 mg tablet 5 mg PO HS 09/15/22 08/29/24 apixaban 5 mg tablet 5 mg PO BID 09/15/22 5 finasteride 5 mg tablet 5 mg PO QDAY 09/15/22 furosemide 40 mg tablet 40 mg PO TID 09/15/22 lisinopril 40 mg tablet 40 mg PO QDAY 09/15/2208/29 loperamide 2 mg tablet 2 mg PO Q4H PRN loose stool 09/15/22 08/30/24 metoprolol succinate 100 mg 100 mg PO BID 09/15/22 tablet,extended release 24 hr potassium chloride 20 mEq 20 meq PO QDAY 09/15/22 05/0 12/16 tablet,extended release tamsulosin 0.4 mg capsule 0.8 mg PO QDAY 09/15/22 050 12/16 silodosin 8 mg capsule (Rapaflo) 8 mg PO QDAY 12/20/22 08/29/24 carboxymethylcellulose sodium 0.5 1 drp Both eyes QID 05/20/24 05/20/24 % eye drops in a dropperette carvedilol 12.5 mg tablet 12.5 mg PO BID 08/29/2412/16 cholecalciferol (vitamin D3) 125 5,000 unit PO QDAY 08/29/24 mcg (5,000 unit) tablet (Vitamin D3) clobetasol 0.05 % scalp solution 1 applic topical QDAY 08/29/24 08/29/24 insulin glargine 100 unit/mL 20 unit subcut QDAY 08/2908/29/24 subcutaneous solution (Lantus U-100 Insulin) insulin regular human 100 unit/mL 1 sliding scale dose subcut 08/29/24 08/29/24 injection solution (Humulin R USEASDIRECTD Regular U-100 Insulin) ketotifen fumarate 0.025 % (0.035 1 drp ophthalmic (ey e) BID 08/29/24 08/29/24 %) eye drops melatonin 5 mg tablet 6 mg PO HS 08/29/24 08/29/24 naphazoline 0.025 %-pheniramine 2 drp ophthalmic (eye) QDAY PRN 08/29/24 08/29/24 0.3 % eye drops (Allergy Eye allergy symptoms (naphazoline-pheniramine)) docusate sodium 100 mg capsule 100 mg PO QDAY PRN cons tipation 08/30/24 08/30/24 hydrocodone 5 mg-acetaminophen 325 1 tab PO Q6H PRN pa in 08/30/24 08/30/24 mg tablet Allergies Allergy/AdvReac Type Severity Reaction Status Date / Time Penicillins Allergy Verified 09/17/24 07:31 Review of Systems Review of Systems Systems Reviewed: All systems reviewed, normal except as documented (above) ED Exam Narrative Physical exam: General: Elderly, morbidly obese gentleman, no acute distress, Alert and Oriented x 3 HEENT: Mildly dry mucous membranes, oropharynx clear Neck: Supple, No masses, No JVD CVS: S1S2 Regular rate and rhythm, No murmurs, rubs or gallops Lungs: Clear to auscultation with no accessory use, no wheeze no rhonchi Abd: Soft, tenderness over RUQ and epigastrium, unable to appreciate Multani sign due to body habitus, +BS, no organomegaly Ext: No edema, warm and well perfused Skin: No rash Psych: Appropriate mood and affect Course Quality Measures none Orders Category Date Time Status Bedside Blood Glucose Q6H Care 09/17/24 10:51 Active Continuous Pulse Oximetry STAT Care 09/17/24 07:09 Completed EKG (ED ONLY) *Do not use* NOW Care 09/17/24 07:09 Completed Insert IV STAT Care 09/17/24 07:09 Active MRI Screening NOW Care 09/17/24 09:56 Active NPO STAT Care 09/17/24 07:[address] abd w/wo pelvis w Stat Exams 09/17/24 07:37 Completed CXRP [XR chest 1V portable] Stat Exams 09/17/24 07:39 Completed EKG (ED Only) Stat Exams 09/17/24 07:08 Draft MR MRCP Stat Exams 09/17/24 Completed US gall bladder Stat Exams 09/17/24 07:38 Completed XR abdomen flat and uprght Stat Exams 09/17/24 07:50 Completed CBC Stat Lab 09/17/24 07:49 Completed Comprehensive Metabolic Panel Stat Lab 09/17/24 07:49 Completed Lipase Stat Lab 09/17/24 07:49 Completed Magnesium Stat Lab 09/17/24 07:49 Completed Partial Thromboplastin Time Stat Lab 09/17/24 07:49 Completed Prothrombin Time with INR Stat Lab 09/17/24 07:49 Completed Troponin I Stat Lab 09/17/24 07:49 Completed Urinalysis Stat Lab 09/17/24 07:09 Ordered Cefepime Inj [Maxipime Inj] 2 gm Med 09/17/24 12:17 Discontinued SODIUM CHLORIDE 0.9% (Popper) [Ns 0.9% (P)] 50 ml IV X1 Dextrose 50% Syr [D50w Syringe Abboject] Med 09/17/24 10:51 Active 25 ml IV Q15MIN PRN Dextrose 50% Syr [D50w Syringe Abboject] Med 09/17/24 10:51 Active 50 ml IV Q15MIN PRN Glucagon Inj Med 09/17/24 10:51 Active 1 mg IM Q15MIN PRN INSULIN LISPRO (AdmeLOG) [HumaLOG] Med 09/17/24 11:00 Active See Protocol SC Q6H Insulin Glargine Inj [Lantus Inj] Med 09/17/24 11:03 Discontinued 10 unit SC X1 ONE Insulin Glargine Inj [Lantus Inj] Med 09/17/24 10:51 Discontinued 15 unit SC X1 ONE Lisinopril [Prinivil] Med 09/17/24 10:50 Discontinued 40 mg PO X1 ONE Morphine Inj Med 09/17/24 07:39 Discontinued 4 mg IVP X1 ONE Ondansetron Inj [Zofran Inj] Med 09/17/24 07:08 Discontinued 4 mg IVP Q1H PRN Ondansetron Inj [Zofran Inj] Med 09/17/24 07:39 Active 4 mg IVP Q6H PRN Pantoprazole Inj [Protonix Inj] Med 09/17/24 07:08 Discontinued 40 mg IVP X1 ONE Sodium Chloride 0.9% 500 ml [Ns] 500 ml Med 09/17/24 10:00 Discontinued IV 999 mls/hr carVEDILOL [Coreg] Med 09/17/24 10:49 Discontinued 12.5 mg PO X1 ONE metroNIDAZOLE/NS 500 MG IVPB [Flagyl 500 mg IV] Med 09/17/24 12:18 Discontinued 500 mg in 100 ml IV X1 Vital Signs Vital signs: Vital Signs Temperature 98.3 F 09/17/24 07:11 Pulse Rate 94 09/17/24 07:11 Respiratory Rate 22 H 09/17/24 07:11 Blood Pressure 163/75 H 09/17/24 07:11 Pulse Oximetry (%) 92 L 09/17/24 07:11 Oxygen Delivery Method Room Air 09/17/24 07:11 Abdominal Pain MDM MDM Narrative MDM Narrative:: The patient is a 78 year old male with PMH significant for type 2 diabetes, hypertension, BPH, cardiac arrhythmias, hyperlipidemia, ANDI, RA, psoriasis, chronic bilateral lower extremity edema, morbid obesity, status post CVA presenting to the ED on 09/17/2024 with chief c/o Abdominal pain for for past couple of days. He reported his pain located more over RUQ and epigastrium, continuous, 8/10 in intensity, non radiating, exacerbated by eating and no relieving factor. He had normal bowel movement 1 day ago, and had 1 episode of vomiting yesterday with continued dysuria. He admitted chronic leg swelling but denied any fever, chills, headache, dizziness, chest pain or SOB. Initial vitals were blood pressure 163/75, pulse 94, RR 22, temperature 98.3, saturating 92% on room air. Labs revealed white count 8.5, hemoglobin 16.2, coag panel WNL, chemistry revealed blood sugar of 334, total bilirubin 2.7, AST 223, ALT 146, ALP 153, tropes were negative, and lipase was 2706. EKG revealed atrial fibrillation with heart rate 86, abdomen x-ray revealed mild small bowel ileus pattern, chest x-ray was negative for air under diaphragm, gallbladder ultrasound revealed cholelithiasis, negative for cholecystitis, abdomen/pelvis CT revealed cholelithiasis, acute pancreatitis, minimal left hydronephrosis, 9 mm calculus on left ureteral junction and cystitis. Patient received carvedilol 12.5 Mg x 1, insulin glargine 10 units SC x 1, lisinopril 40 Mg p.o. x 1, pantoprazole 40 Mg IV x 1, and normal saline 500 cc bolus. The patient also received 1 dose of cefepime 2 g IV x 1 and metronidazole 500 Mg IV x 1. Patient data External records reviewed:: [facility] previous records Clinical information provided by:: patient and EMS Social determinants that could affect healthcare access:: none Patient has the following chronic illnesses:: See above How is presenting disease/condition affected by chronic disease/condition?: uneffected by Evaluation data The following diagnostics were reviewed and interpreted by me:: lab results, radiology exam(s) and EKG tracing(s) Lab and/or radiology exams considered but not ordered:: None Interpretation Summary: See above Medications / Prescriptions Medications or Prescriptions considered but not ordered:: None Medication administrations:: Medication Administration History Dextrose (Dextrose 50%-Water Inj 50 Ml Syringe) 25 ml IV Q15MIN PRN PRN Reason: BG 50-70 responsive npo pt Stop: 10/17/24 10:50 Dextrose (Dextrose 50%-Water Inj 50 Ml Syringe) 50 ml IV Q15MIN PRN PRN Reason: BG <50 OR BG <70 & pt unresponsive Stop: 10/17/24 10:50 Glucagon (Glucagon Inj 1 Mg Vial) 1 mg IM Q15MIN PRN PRN Reason: BG <70, and no IV access Insulin Human Lispro (Insulin Lispro (Admelog) 1 Unit/0.01 Ml Unit) 0 unit SC Q6H [facility]; Protocol Stop: 10/17/24 10:59 Last Admin: 09/17/24 11:04 Dose: Not Given Documented By: ANGLE Non-Admin Reason: Per Dr. Cintron to hold for now Ondansetron HCl (Ondansetron Inj 2 Mg/Ml Inj 2 Ml) 4 mg IVP Q6H PRN PRN Reason: PERSISTENT NAUSEA OR VOMITING Stop: 09/20/24 07:38 Last Admin: 09/17/24 08:55 Dose: 4 mg Documented By: ANGLE Discontinued Medications Carvedilol (Carvedilol 12.5 Mg Tablet) 12.5 mg PO X1 ONE Stop: 09/17/24 10:50 Last Admin: 09/17/24 12:19 Dose: 12.5 mg Documented By: KEARA Sodium Chloride (Ns) 500 mls @ 999 mls/hr IV .Q31M ONE Stop: 09/17/24 10:30 Last Infusion: 09/17/24 12:01 Dose: Infused Documented By: Admin: 09/17/24 11:30 Dose: 999 mls/hr Documented By: KEARA Cefepime HCl 2 gm/ Sodium (Chloride) 50 mls @ 100 mls/hr IV X1 ONE Stop: 09/17/24 12:46 Last Infusion: 09/17/24 13:38 Dose: Infused Documented By: Admin: 09/17/24 13:08 Dose: 100 mls/hr Documented By: KEARA Metronidazole (Flagyl 500 Mg Iv) 500 mg in 100 mls @ 200 mls/hr IV X1 ONE Stop: 09/17/24 12:47 Last Infusion: 09/17/24 15:26 Dose: Infused Documented By: Admin: 09/17/24 14:42 Dose: 200 mls/hr Documented By: KEARA Insulin Glargine (Insulin Glargine (Lantus) 5 Unit/0.05 Ml (Per 5 Units)) 15 unit SC X1 ONE Stop: 09/17/24 10:52 Last Admin: 09/17/24 14:50 Dose: Not Given Documented By: ANGLE Non-Admin Reason: Cancelled by Provider Insulin Glargine (Insulin Glargine (Lantus) 5 Unit/0.05 Ml (Per 5 Units)) 10 unit SC X1 ONE Stop: 09/17/24 11:04 Last Admin: 09/17/24 11:07 Dose: 10 unit Documented By: ANGLE Co-signed By: KEARA Lisinopril (Lisinopril 20 Mg Tablet) 40 mg PO X1 ONE Stop: 09/17/24 10:51 Last Admin: 09/17/24 11:05 Dose: 40 mg Documented By: ANGLE Morphine Sulfate (Morphine Sulf Inj 10 Mg/Ml Vial) 4 mg IVP X1 ONE Stop: 09/17/24 07:40 Last Admin: 09/17/24 08:54 Dose: 4 mg Documented By: ANGLE Ondansetron HCl (Ondansetron Inj 2 Mg/Ml Inj 2 Ml) 4 mg IVP Q1H PRN PRN Reason: PERSISTENT NAUSEA OR VOMITING Pantoprazole Sodium (Pantoprazole Inj 40 Mg Vial) 40 mg IVP X1 ONE Stop: 09/17/24 07:09 Last Admin: 09/17/24 08:54 Dose: 40 mg Documented By: ANGLE See above Consultations Consultation(s) initiated? (list below): Yes Consultation #1 (Physician, Specialty, Details): General surgeon Dr. Dickson for acute calculus cholecystitis Consultation #2 (Physician, Specialty, Details): Hospitalist Dr. Grace for admission Diagnosis Differential diagnosis abdominal pain: abdominal pain, calculus of kidney, diverticulitis, pancreatitis and small bowel obstruction Most likely diagnosis given after review of the tests above:: Acute calculus cholecystitis Admission Indicated Admission indicated?: indicated Admission Request Was there a request for admission?: Yes Admission Attestation Admission request attestation: Discussed case with Dr. Lesly DO from Hospitalist service regarding admission. Discussed patients ED course, exam findings, labs, and radiology results. The Hospitalist team agrees to accept the patient for admission. Disposition Plan Disposition Plan: Admit Discharge Plan Plan Patient Disposition: Admit Acute Care w/in Hospital Prescriptions/Referrals Prescriptions/Med Rec: No Action silodosin [Rapaflo] 8 mg capsule 8 mg PO QDAY Rx Instructions: must administer with a meal/food acetaminophen 650 mg tablet extended release 650 mg PO Q4HR PRN (Reason: pain) Patient Comments: Give 650 mg by mouth every 4 hours as needed for pain related to benign prostatic hyperplasia without lower urinary tract infection. amlodipine 5 mg tablet 5 mg PO HS Patient Comments: Give 1 tablet by mouth at bedtime related to ESSENTIAL (PRIMARY) HYPERTENSION. Hold for BP under 110 systolic apixaban 5 mg tablet 5 mg PO BID furosemide 40 mg tablet 40 mg PO TID Patient Comments: Give 1 tablet by mouth three times a day for swelling to lower extremities related to essential (primary) hypertension. potassium chloride 20 mEq tablet extended release 20 meq PO QDAY metoprolol succinate 100 mg tablet extended release 24 hr 100 mg PO BID loperamide 2 mg tablet 2 mg PO Q4H PRN (Reason: loose stool) Rx Instructions: administer after each loose stool until symptoms controlled; do not exceed 8 mg per 24 hrs lisinopril 40 mg tablet 40 mg PO QDAY tamsulosin 0.4 mg capsule 0.8 mg PO QDAY finasteride 5 mg tablet 5 mg PO QDAY carboxymethylcellulose sodium 0.5 % dropperette 1 drp Both eyes QID cholecalciferol (vitamin D3) [Vitamin D3] 125 mcg (5,000 unit) tablet 5,000 unit PO QDAY clobetasol 0.05 % solution 1 applic topical QDAY Patient Comments: Apply to scalp and behind ears topically one time a day for affected area to scalp for 2 weeks apply 4-6 drops to affected areas on scalp and behind ears. insulin glargine [Lantus U-100 Insulin] 100 unit/mL solution 20 unit subcut QDAY melatonin 5 mg tablet 6 mg PO HS Patient Comments: Give 6mg by mouth at bedtime related to Sleep Apnea carvedilol 12.5 mg tablet 12.5 mg PO BID Rx Instructions: must administer with a meal/food ketotifen fumarate 0.025 % (0.035 %) drops 1 drp ophthalmic (eye) BID Rx Instructions: administer at least 8 hours apart Humulin R Regular U-100 Insuln 100 unit/mL solution 1 sliding scale dose subcut USEASDIRECTD Allergy Eye (naphazoline-phen) 0.025-0.3 % drops 2 drp ophthalmic (eye) QDAY PRN (Reason: allergy symptoms) docusate sodium 100 mg capsule 100 mg PO QDAY PRN (Reason: constipation) hydrocodone-acetaminophen 5-325 mg tablet 1 tab PO Q6H PRN (Reason: pain) Referrals: No Primary/Family,Physician [Primary Care Provider] - In 1 week Problem List Clinical Impression: Acute calculous cholecystitis, Acute pancreatitis Patient/Caregiver Discharge Instructions Print Language: Sami Stand Alone Forms: [employer] Award Info., Patient Portal Info Letter
--- NOTE | 2024-09-17 07:50 | XR_ITS ---
Examination: AP abdomen single view TECHNIQUE: AP portable upright abdomen single view Exam date and time: September 17, 2024 0852 hours INDICATIONS: Generalized abdominal pain today. FINDINGS: Moderate stool throughout the colon Mildly air distended small bowel loops No free air Prominent osteopenia IMPRESSION: Mild small bowel ileus pattern
[2024-09-17 08:05] LABS: Basophils % (Auto) 0 % (0-2.5); Eosinophils % (Auto) 0 % (0-10); Hematocrit 46.1 % (41.0-53.0); Hemoglobin 16.2 g/dL (13.5-16.0); Immature Granulocytes % (Auto) 0 % (0-0); Immature Granulocytes Auto 0.02 Thou/mm3 (0.00-0.00); Lymphocytes # (Auto) 2.2 Thou/mm3 (1.0-4.8); Lymphocytes % (Auto) 26 % (10-50); Mean Corpuscular HGB Conc 35.1 g/dl (31.0-37.0); Mean Corpuscular Volume 88 fL (80-100); Monocytes # (Auto) 0.8 Thou/mm3 (0.0-0.8); Monocytes % (Auto) 9 % (0-12); Neutrophils # (Auto) 5.5 Thou/mm3 (1.8-7.7); Neutrophils % (Auto) 65 % (37-80); Nucleated Red Blood Cell % 0 /100 WBC (0); Platelet Count 146 Thou/mm3 (140-440); RDW Standard Deviation 45.1 fL (35.1-43.9); Red Blood Count 5.23 Miln/mm3 (4.50-5.90); White Blood Count 8.5 Thou/mm3 (3.8-10.6)
[2024-09-17 08:40] LABS: Alanine Aminotransferase 146 U/L (10-49); Albumin, Serum 3.6 gm/dL (3.4-4.8); Albumin/Globulin Ratio 1.1 (1.2-2.2); Alkaline Phosphatase 153 U/L (46-116); Anion Gap 7 (7-16); Aspartate Amino Transferase 223 U/L (0-34); BUN/Creatinine Ratio 22 Ratio (12-20); Bilirubin,Total 2.7 mg/dL (0.3-1.2); Blood Urea Nitrogen 20 mg/dL (9-23); Calcium 8.9 mg/dL (8.3-10.6); Calcium (Corrected) 9.2 mg/dL (8.5-10.1); Carbon Dioxide 29.7 mMol/L (20.0-31.0); Chloride 102 mMol/L (98-107); Creatinine (Component) 0.9 mg/dL (0.6-1.3); Estimated Creatinine Clearance 93.2 mL/min (>60); Globulin 3.2 gm/dL (2.3-3.5); Glucose 334 mg/dL (74-106); Lipase 2706 U/L (12-53); Magnesium 1.9 mg/dL (1.6-2.6); Osmolality,Calculated 293 (275-295); Potassium 4.2 mMol/L (3.4-5.1); Sodium 139 mMol/L (136-145); Total Protein 6.8 gm/dL (5.7-8.2); Troponin I < 0.002 ng/mL (0.0-0.045); eGFR > 60 See Note
[2024-09-17 08:42] LABS: Partial Thromboplastin Time 27.3 Seconds (22.0-36.0); Prothrombin Time 11.4 Seconds (9.0-12.2)
[2024-09-17] MEDS: MORPHINE SULF INJ 10 MG/ML VIAL 4 MG IVP (08:54)
[2024-09-17] MEDS: PANTOPRAZOLE INJ 40 MG VIAL IVP (08:54)
[2024-09-17] MEDS: ONDANSETRON INJ 2 MG/ML INJ 2 ML 4 MG IVP (08:55)
[2024-09-17] MEDS: Lisinopril 20 MG TABLET 40 MG PO (11:05)
[2024-09-17] MEDS: INSULIN GLARGINE (Lantus) 5 UNIT/0.05 ML (PER 5 UNITS) 10 UNIT SC (11:07)
[2024-09-17] MEDS: SODIUM CHLORIDE 0.9% 500 ML 500 ML 999 ML IV ×2 (11:30→16:31)
[2024-09-17] MEDS: carVEDILOL 12.5 MG TABLET PO (12:19)
[2024-09-17] MEDS: CEFEPIME INJ 2 GM in SODIUM CHLORIDE 0.9% (Popper) 50 ML IV (13:08)
[2024-09-17] MEDS: metroNIDAZOLE/NS 500 MG IVPB 500 MG/100 ML BAG 200 MG IV (14:42)
--- NOTE | 2024-09-17 17:32 | PD.ADDHP ---
Addendum History & Physical Addendum Date of report being addended: 09/17/24 Narrative: Attending's attestation: I reviewed labs, imaging, EKG, home medications and prior available records. Face to face evaluation was performed by me. I have personally examined the patient and discussed assessment and plan with the IM team. I reviewed the resident note and agree with the plan with exceptions as below. 78-year-old male with history of hypertension, diabetes mellitus type 2, chronic lower extremity swelling, BPH, morbid obesity, who presented with a chief complaint of abdominal pain, nausea, and vomiting. He was found to have acute pancreatitis in the setting of cholelithiasis. Acute pancreatitis: Likely in setting of cholelithiasis. No reported history of alcohol use. Start IV hydration at 150 cc/h. Clear liquid diet. Management of pain with opiates as needed. Management of nausea/vomiting with IV Zofran as needed Transaminitis: Likely in setting of acute pancreatitis and cholelithiasis. Monitor LFTs. Treatment of pancreatitis as above Type 2 diabetes mellitus: Start the patient on long-acting insulin 10 units plus sliding scale insulin. Adjust based on the future fingersticks. Monitor fingersticks. Essential hypertension: Resume antihypertensive treatment once reconciled BPH: Resume home medications Atrial fibrillation with controlled ventricular rhythm: Resume home medications once reconciled
[2024-09-17 18:04] LABS: Collection Type, Urine Clean Catch
[2024-09-17 18:25] LABS: Bacteria,Urine Rare; Bilirubin,Urine 1+ (Negative); Blood,Urine 2+ (Negative); Color,Urine Yellow (Lt Yel-Yel); Glucose, Urine 1+ (Negative); Ketones,Urine Trace (Negative); Leukocyte Esterase,Urine Positive (Negative); Nitrite,Urine Negative (Negative); PH,Urine 5.5 (5.0-7.0); Protein,Urine 1+ (Neg - Trace); RBC,Urine 13 /hpf (0-3); Specific Gravity,Urine 1.031 (1.001-1.035); Squamous Epithelial Cell,Urine 1 /hpf (0-5); Urobilinogen,Urine Negative mg/dL (0.0-1.0); WBC,Urine 371 /hpf (0-5)
[2024-09-17 18:29] LABS: Clarity,Urine Cloudy (Clear/Hazy)
[2024-09-17 18:30] LABS: Cardiac Risk Estimate 3.5 RATIO (4.0-6.7); Cholesterol 136 mg/dL (132-200); HDL Cholesterol 39 mg/dL (40-60); LDL Cholesterol,Calculated 76 mg/dL (0-130); Triglycerides 107 mg/dL (30-150)
--- NOTE | 2024-09-17 18:50 | PD.RESHP ---
Documentation for date of: 09/17/24 HPI History of Present Illness History of present illness: Artie is a 78 y/o male with PMHx of type 2 diabetes, hypertension, BPH, cardiac arrhythmias, hyperlipidemia, ANDI, RA, psoriasis, chronic bilateral lower extremity edema, morbid obesity, status post CVA who comes for an evaluation of generalized abdominal pain, rated 8/10, with associated nausea and dry heaving, onset 2 days ago. Pt reports that he was recently discharged from [facility] two weeks ago for evaluation of UTI in which he was discharged with IV abx. Pt reports no changes of dietary habits and eats whatever they give him at the facility he is at. He states no recent travel. He says his pain radiates to his back as well. He denies hx of hypertriglyceridemia. Denies CP, SOB, weakness, fatigue. No other complaints at this time. ED Course: Pt arrived to the ED afebrile, heart rate 93, respiratory rate 22, blood pressure 103/75 and saturating 92% on room air. Pt was worked up and waas found to have a sodium of 193, potassium 4.2, bicarb 24, glucose 334, Cr 0.9, Hgb 16.2, WBC of 8.5, AST and ALT 223 and 146 respectively and lipase ~2700. Pt had imaging including GB US which showed stones, CT A/P which showed pancreatitis and cholecystitis, MRCP which showed Cholecystitis, pancreatits but no CBD. Pt was given Cefepime, and Flagyl,pain control, and general surgery was consulted who recommeded admission for further workup. Medicine was consulted, and patient was admitted to the floors. PMHx: As above Surgeries: Catarcts, Knee replacements bilat Meds:Eliquis, Coreg, Finasteride, Lisinopril, Lasix, pending med rec Allergies: Penicillins Family Hx: Denies CAD, stroke, DM Social Hx:Lives at facility. Was in [facility] before. Has kids. 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 No history of IV or Drug use, however smoked marjiuana when he was young a couplel times Review of Systems Review of Systems Narrative Review of Systems: 12 Point ROS was reviewed and is otherwise negative unless stated directly in the HPI Exam Vital Signs Temp Pulse Resp BP Pulse Ox O2 Del Method O2 Flow Rate 98.3 F 77 16 129/90 H 96 Room Air 2 09/17/24 18:43 09/17/24 18:43 09/17/24 18:43 09/17/24 18:43 09/17/24 18:43 09/17/24 18:43 09/17/24 15:48 Narrative Exam General: AAOx3, morbidly obese male, in some distress, glasses, lying down HEENT: Moist mucous membranes, conjunctiva clear, EOMI, PERRLA, Cardiovascular: S1, S2, radial pulses +2 bilat, RRR Pulmonary: CTAB bilat no cough, no wheezing GI: Tenderness to palpitation, slight distension, bowel sounds present Extremities: No presence of trace or pitting edema in lower extremities bilaterally, dorsalis pedis pulses +2 bilaterally Neuro: AAOx3, no focal motor or sensory deficits in the UE or LE bilat Psych: Good judgement, thought and behavior. Cooperative Results: Labs 09/18/24 04:53 09/18/24 04:53 Labs: Short CBC 09/17/24 Range/Units 07:49 WBC 8.5 (3.8-10.6) Thou/mm3 Hgb 16.2 H (13.5-16.0) g/dL Hct 46.1 (41.0-53.0) % Plt Count 146 (140-440) Thou/mm3 BMP 09/17/24 07:49 Sodium 139 Potassium 4.2 Chloride 102 Carbon Dioxide 29.7 BUN 20 Creatinine 0.9 Glucose 334 H Calcium 8.9 Cardiac Enzymes 09/17/24 Range/Units 07:49 Troponin I < 0.002 (0.0-0.045) ng/mL Liver Function 09/17/24 Range/Units 07:49 Total Bilirubin 2.7 H (0.3-1.2) mg/dL AST 223 H (0-34) U/L ALT 146 H (10-49) U/L Alkaline Phosphatase 153 H (46-116) U/L Albumin 3.6 (3.4-4.8) gm/dL Urine 09/17/24 Range/Units 17:39 Urine Color Yellow (Lt Yel-Yel) Urine Clarity Cloudy A (Clear/Hazy) Urine pH 5.5 (5.0-7.0) Ur Specific [place] 1.031 (1.001-1.035) Urine Protein 1+ A (Neg - Trace) Urine Glucose (UA) 1+ A (Negative) Quality Measures Quality Measures none Advance care planning discussed with:: patient Medications Home Medications and Allergies Home Medications ?Medication ?Instructions ?Recorded ?Confirmed ?Type acetaminophen 650 mg 650 mg PO Q4HR PRN pain 09/15/22 09/17/24 History tablet,extended release amlodipine 5 mg tablet 5 mg PO HS 09/15/22 09/17/24 History apixaban 5 mg tablet 5 mg PO BID 09/15/22 09/17/24 History finasteride 5 mg tablet 5 mg PO QDAY 09/15/22 09/17/24 History furosemide 40 mg tablet 40 mg PO TID 09/15/22 09/17/24 History lisinopril 40 mg tablet 40 mg PO QDAY 09/15/22 09/17/24 History loperamide 2 mg tablet 2 mg PO Q4H PRN loose stool 09/15/22 09/17/24 History metoprolol succinate 100 mg 100 mg PO BID 09/15/22 09/18/24 History tablet,extended release 24 hr potassium chloride 20 mEq 20 meq PO QDAY 09/15/22 09/17/24 History tablet,extended release tamsulosin 0.4 mg capsule 0.8 mg PO QDAY 09/15/22 09/17/24 History silodosin 8 mg capsule (Rapaflo) 8 mg PO QDAY 12/20/22 09/17/24 History carboxymethylcellulose sodium 0.5 1 drp Both eyes QID 05/20/24 09/17/24 History % eye drops in a dropperette carvedilol 12.5 mg tablet 12.5 mg PO BID 08/29/24 09/17/24 History cholecalciferol (vitamin D3) 125 5,000 unit PO QDAY 08/29/24 09/17/24 History mcg (5,000 unit) tablet (Vitamin D3) clobetasol 0.05 % scalp solution 1 applic topical QDAY 08/29/24 09/17/24 History insulin glargine 100 unit/mL 20 unit subcut QDAY 08/29/24 09/17/24 History subcutaneous solution (Lantus U-100 Insulin) insulin regular human 100 unit/mL 1 sliding scale dose subcut 08/29/24 09/17/24 History injection solution (Humulin R USEASDIRECTD Regular U-100 Insulin) ketotifen fumarate 0.025 % (0.035 1 drp ophthalmic (eye) BID 08/29/24 09/17/24 History %) eye drops melatonin 5 mg tablet 6 mg PO HS 08/29/24 09/17/24 History naphazoline 0.025 %-pheniramine 2 drp ophthalmic (eye) QDAY PRN 08/29/24 09/18/24 History 0.3 % eye drops (Allergy Eye allergy symptoms (naphazoline-pheniramine)) docusate sodium 100 mg capsule 100 mg PO QDAY PRN constipation 08/30/24 09/18/24 History hydrocodone 5 mg-acetaminophen 325 1 tab PO Q6H PRN pain 08/30/24 09/18/24 History mg tablet dextromethorphan-guaifenesin 10 10 ml PO Q4H 09/18/24 09/18/24 History mg-100 mg/5 mL oral liquid (Diabetic Tussin DM) diclofenac sodium 1 % topical gel 2 g topical QID 09/18/24 09/18/24 History (Voltaren Arthritis Pain) empagliflozin 25 mg tablet 25 mg PO QDAY 09/18/24 09/18/24 History ibuprofen 600 mg tablet (IBU) 600 mg PO Q8H 09/18/24 09/18/24 History magnesium hydroxide 400 mg/5 mL 30 ml PO QDAY PRN constipation 09/18/24 09/18/24 History oral suspension peg 400-propylene glycol 0.4 %-0.3 1 drp ophthalmic (eye) Q8H PRN dry 09/18/24 09/18/24 History % eye drops (Systane (propylene eye(s) glycol)) Allergies Allergy/AdvReac Type Severity Reaction Status Date / Time Penicillins Allergy Verified 09/17/24 07:31 Visit Medications Acetaminophen (Acetaminophen 325 Mg Tablet) 650 mg PO Q6H PRN PRN Reason: Fever >100 or pain 1-3 Stop: 10/17/24 18:37 Hydrocodone Bitart/Acetaminophen (Hydrocodone/Apap 10/325 Tab) 1 tab PO Q4H PRN PRN Reason: PAIN SCALE 4-6 (Moderate Stop: 09/22/24 18:37 Dextrose (Dextrose 50%-Water Inj 50 Ml Syringe) 25 ml IV Q15MIN PRN PRN Reason: BG 50-70 responsive npo pt Stop: 10/17/24 10:50 Dextrose (Dextrose 50%-Water Inj 50 Ml Syringe) 50 ml IV Q15MIN PRN PRN Reason: BG <50 OR BG <70 & pt unresponsive Stop: 10/17/24 10:50 Docusate Sodium (Docusate Sod 100 Mg Capsule) 100 mg PO QDAY PRN; Protocol PRN Reason: constipation Stop: 10/17/24 18:45 Finasteride (Finasteride 5 Mg Tablet) 5 mg PO QDAY [facility] Stop: 10/18/24 08:59 Glucagon (Glucagon Inj 1 Mg Vial) 1 mg IM Q15MIN PRN PRN Reason: BG <70, and no IV access Lactated Ringer's (Lactated Ringers) 1,000 mls @ 150 mls/hr IV .Q6H40M [facility] Stop: 10/17/24 18:44 Insulin Glargine (Insulin Glargine (Lantus) 5 Unit/0.05 Ml (Per 5 Units)) 10 unit SC QDAY [facility] Stop: 10/18/24 08:59 Insulin Human Lispro (Insulin Lispro (Admelog) 1 Unit/0.01 Ml Unit) 0 unit SC AC [facility]; Protocol Stop: 10/17/24 18:44 Lisinopril (Lisinopril 20 Mg Tablet) 40 mg PO QDAY [facility] Stop: 10/18/24 08:59 Morphine Sulfate (Morphine Sulf Inj 10 Mg/Ml Vial) 2 mg IVP Q4H PRN PRN Reason: PAIN SCALE 7-10 (Severe Stop: 09/22/24 18:37 Non-Formulary Medication (Carboxymethylcellulose Sodium) 1 drop BOTH EYES QID [facility] Stop: 10/17/24 20:59 Non-Formulary Medication (Ketotifen Fumarate) 1 drop OPHTHALMIC BID [facility] Stop: 10/17/24 20:59 Non-Formulary Medication (Melatonin) 6 mg PO HS [facility] Stop: 10/17/24 20:59 Non-Formulary Medication (Silodosin [Rapaflo]) 8 mg PO QDAY [facility] Stop: 10/18/24 08:59 Ondansetron HCl (Ondansetron Inj 2 Mg/Ml Inj 2 Ml) 4 mg IVP Q6H PRN PRN Reason: PERSISTENT NAUSEA OR VOMITING Stop: 09/20/24 07:38 Last Admin: 09/17/24 08:55 Dose: 4 mg Tamsulosin HCl (Tamsulosin Hcl 0.4 Mg Capsule) 0.8 mg PO QDAY [facility] Stop: 10/18/24 08:59 Discontinued Medications Carvedilol (Carvedilol 12.5 Mg Tablet) 12.5 mg PO X1 ONE Stop: 09/17/24 10:50 Last Admin: 09/17/24 12:19 Dose: 12.5 mg Sodium Chloride (Ns) 500 mls @ 999 mls/hr IV .Q31M ONE Stop: 09/17/24 10:30 Last Infusion: 09/17/24 12:01 Dose: Infused Cefepime HCl 2 gm/ Sodium (Chloride) 50 mls @ 100 mls/hr IV X1 ONE Stop: 09/17/24 12:46 Last Infusion: 09/17/24 13:38 Dose: Infused Metronidazole (Flagyl 500 Mg Iv) 500 mg in 100 mls @ 200 mls/hr IV X1 ONE Stop: 09/17/24 12:47 Last Infusion: 09/17/24 15:26 Dose: Infused Sodium Chloride (Ns) 500 mls @ 999 mls/hr IV .Q31M ONE Stop: 09/17/24 16:53 Last Infusion: 09/17/24 17:02 Dose: Infused Insulin Glargine (Insulin Glargine (Lantus) 5 Unit/0.05 Ml (Per 5 Units)) 15 unit SC X1 ONE Stop: 09/17/24 10:52 Last Admin: 09/17/24 14:50 Dose: Not Given Insulin Glargine (Insulin Glargine (Lantus) 5 Unit/0.05 Ml (Per 5 Units)) 10 unit SC X1 ONE Stop: 09/17/24 11:04 Last Admin: 09/17/24 11:07 Dose: 10 unit Insulin Human Lispro (Insulin Lispro (Admelog) 1 Unit/0.01 Ml Unit) 0 unit SC Q6H [facility]; Protocol Stop: 10/17/24 10:59 Last Admin: 09/17/24 11:04 Dose: Not Given Lisinopril (Lisinopril 20 Mg Tablet) 40 mg PO X1 ONE Stop: 05/27/25 10:51 Last Admin: 09/17/24 11:05 Dose: 40 mg Morphine Sulfate (Morphine Sulf Inj 10 Mg/Ml Vial) 4 mg IVP X1 ONE Stop: 09/17/24 07:40 Last Admin: 09/17/24 08:54 Dose: 4 mg Ondansetron HCl (Ondansetron Inj 2 Mg/Ml Inj 2 Ml) 4 mg IVP Q1H PRN PRN Reason: PERSISTENT NAUSEA OR VOMITING Pantoprazole Sodium (Pantoprazole Inj 40 Mg Vial) 40 mg IVP X1 ONE Stop: 09/17/24 07:09 Last Admin: 09/17/24 08:54 Dose: 40 mg Assessment & Plan Plan Assessment Artie is a 78 y/o male with PMHx of type 2 diabetes, hypertension, BPH, cardiac arrhythmias, hyperlipidemia, ANDI, RA, psoriasis, chronic bilateral lower extremity edema, morbid obesity, status post CVA who is admitted for gallstone pancreatitis. #Gallstone pancreatitis Imaging showing pancreatitis and stones No CBD on MRCP Lipid panel unremarkable for hypertriglyceridemia Pt will need abx and surgical intervention with aggressive fluid resusicatation Plan: ? LR 150 cc/hr ? Flagyl and Rocephin ? NPO at midnight ? Multimodal pain analgesia #Chronic A-fib [id number]: 7 HAS-BLED: 3 Rate:Controlled Rhythm: Regular Plan: ? Resume rate control home meds ? Keep Mag and K+ above 2 and 4 respectively ? Holding A/C, will resume after surgery #Hypertension #Hyperlipidemia Chronic LDL 83 Plan: ? Holding blood pressure medicines as blood pressures soft at this point ? Pending Med Rec #BPH Plan: ? Resumed home Flomax #Insullin Dependent type II Diabetes mellitus A1c 7.0 Plan: ? Sliding scale insulin ? Hypoglycemic protocol in place ? Blood sugar checks with meals ? Resuming Lantus 10 units tomorrow Discharge summary was reviewed with my attending Dr. Candice Grace, PGY-1 Attending Provider Attestation/Addendum I reviewed labs, imaging, EKG, home medications and prior available records. Face to face evaluation was performed by me. I have personally examined the patient and discussed assessment and plan with the IM team. I reviewed the resident note and agree with the plan with exceptions as below. 78-year-old male with history of hypertension, diabetes mellitus type 2, chronic lower extremity swelling, BPH, morbid obesity, who presented with a chief complaint of abdominal pain, nausea, and vomiting. He was found to have acute pancreatitis in the setting of cholelithiasis. Acute pancreatitis: Likely in setting of cholelithiasis. No reported history of alcohol use. Start IV hydration at 150 cc/h. Clear liquid diet. Management of pain with opiates as needed. Management of nausea/vomiting with IV Zofran as needed Transaminitis: Likely in setting of acute pancreatitis and cholelithiasis. Monitor LFTs. Treatment of pancreatitis as above Type 2 diabetes mellitus: Start the patient on long-acting insulin 10 units plus sliding scale insulin. Adjust based on the future fingersticks. Monitor fingersticks. Essential hypertension: Resume antihypertensive treatment once reconciled BPH: Resume home medications Atrial fibrillation with controlled ventricular rhythm: Resume home medications once reconciled
--- NOTE | 2024-09-17 21:46 | PD.SURCONS ---
HPI Consult details Consult date: 09/17/24 Reason for consultation narrative: Gallstone pancreatitis History of present illness: 78-year-old morbidly obese male with multiple medical comorbidities including hypertension, diabetes, BPH, hypercholesterolemia, cardiac arrhythmia Elimyles presented to the emergency department with abdominal pain with nausea and vomiting. His pain in the epigastric and right upper quadrant rating to his back. He denies having similar symptoms in the past. He was noted to have elevation of liver and pancreatic enzymes. CT scan of abdomen pelvis and ultrasound revealed gallstones with acute pancreatitis. MRCP did not show evidence of CBD stones. Review of Systems Constitutional Constitutional: Denies chills and Denies fever(s) Cardiovascular Cardiovascular: Denies chest pain Respiratory Respiratory: Denies cough Gastrointestinal Gastrointestinal: Reports abdominal pain, Reports nausea and Reports vomiting Genitourinary Genitourinary: Denies difficulty urinating Musculoskeletal Musculoskeletal: Reports back pain Hematologic/Lymphatic Hematologic/Lymphatic: Denies easy bleeding and Reports easy bruising Past Medical History Surgical History OTHER SURGICAL HX: Bilateral knee replacement, cataract extraction Social History SMOKING STATUS: Never smoker SUBSTANCE USE: does not use ALCOHOL: Former Meds Home Medications and Allergies Home Medications ?Medication ?Instructions ?Recorded ?Confirmed ?Type acetaminophen 650 mg 650 mg PO Q4HR PRN pain 09/15/22 09/17/24 History tablet,extended release amlodipine 5 mg tablet 5 mg PO HS 09/15/22 09/17/24 History apixaban 5 mg tablet 5 mg PO BID 09/15/22 09/17/24 History finasteride 5 mg tablet 5 mg PO QDAY 09/15/22 09/17/24 History furosemide 40 mg tablet 40 mg PO TID 09/15/22 09/17/24 History lisinopril 40 mg tablet 40 mg PO QDAY 09/15/22 09/17/24 History loperamide 2 mg tablet 2 mg PO Q4H PRN loose stool 09/15/22 09/17/24 History metoprolol succinate 100 mg 100 mg PO BID 09/15/22 09/18/24 History tablet,extended release 24 hr potassium chloride 20 mEq 20 meq PO QDAY 09/15/22 09/17/24 History tablet,extended release tamsulosin 0.4 mg capsule 0.8 mg PO QDAY 09/15/22 09/17/24 History silodosin 8 mg capsule (Rapaflo) 8 mg PO QDAY 08/29/23 05/27/25 History carboxymethylcellulose sodium 0.5 1 drp Both eyes QID 05/20/24 09/17/24 History % eye drops in a dropperette carvedilol 12.5 mg tablet 12.5 mg PO BID 08/29/24 09/17/24 History cholecalciferol (vitamin D3) 125 5,000 unit PO QDAY 08/29/24 09/17/24 History mcg (5,000 unit) tablet (Vitamin D3) clobetasol 0.05 % scalp solution 1 applic topical QDAY 08/29/24 09/17/24 History insulin glargine 100 unit/mL 20 unit subcut QDAY 08/29/24 09/17/24 History subcutaneous solution (Lantus U-100 Insulin) insulin regular human 100 unit/mL 1 sliding scale dose subcut 08/29/24 09/17/24 History injection solution (Humulin R USEASDIRECTD Regular U-100 Insulin) ketotifen fumarate 0.025 % (0.035 1 drp ophthalmic (eye) BID 08/29/24 09/17/24 History %) eye drops melatonin 5 mg tablet 6 mg PO HS 08/29/24 09/17/24 History naphazoline 0.025 %-pheniramine 2 drp ophthalmic (eye) QDAY PRN 08/29/24 09/18/24 History 0.3 % eye drops (Allergy Eye allergy symptoms (naphazoline-pheniramine)) docusate sodium 100 mg capsule 100 mg PO QDAY PRN constipation 08/30/24 09/18/24 History hydrocodone 5 mg-acetaminophen 325 1 tab PO Q6H PRN pain 08/30/24 09/18/24 History mg tablet dextromethorphan-guaifenesin 10 10 ml PO Q4H 09/18/24 09/18/24 History mg-100 mg/5 mL oral liquid (Diabetic Tussin DM) diclofenac sodium 1 % topical gel 2 g topical QID 09/18/24 09/18/24 History (Voltaren Arthritis Pain) empagliflozin 25 mg tablet 25 mg PO QDAY 09/18/24 09/18/24 History ibuprofen 600 mg tablet (IBU) 600 mg PO Q8H 09/18/24 09/18/24 History magnesium hydroxide 400 mg/5 mL 30 ml PO QDAY PRN constipation 09/18/24 09/18/24 History oral suspension peg 400-propylene glycol 0.4 %-0.3 1 drp ophthalmic (eye) Q8H PRN dry 09/18/24 09/18/24 History % eye drops (Systane (propylene eye(s) glycol)) Allergies Allergy/AdvReac Type Severity Reaction Status Date / Time Penicillins Allergy Verified 09/17/24 07:31 Exam Vital Signs Temp Pulse Resp BP Pulse Ox O2 Del Method O2 Flow Rate 98.3 F 77 16 129/90 H 96 Room Air 2 09/17/24 18:43 09/17/24 18:43 09/17/24 18:43 09/17/24 18:43 09/17/24 18:43 09/17/24 18:43 09/17/24 15:48 Constitutional Constitutional: no acute distress Routine Abdominal Exam Comments: Abdomen is soft, obese. He has tenderness to palpation in epigastric and right upper quadrant with guarding, no rebound tenderness or peritonitis at this time Results Results: Laboratory Laboratory results: results reviewed Results: Imaging Imaging narrative: CT scan of abdomen and pelvis, u/s and MRCP images reviewed, radiologist's interpretation noted Assessment & Plan Problem List (1) Biliary acute pancreatitis without necrosis or infection: Status: Acute Plan Keep NPO with IVF and IV antibiotics. Hold anticoagulation. Will plan for lap emelina with cholangiogrm when pancreatitis improve.
[2024-09-18] VITALS (7 sets, daily range): BP systolic 104–138; BP diastolic 70–94; PULSE 84–101; RESP 18–29; TEMP 36.1–36.6; O2SAT 94–98; BMI 45.3
[2024-09-18] MEDS: RINGERS LACTATED 1000 ML 1,000 ML 150 ML IV ×4 (00:09→23:01)
[2024-09-18] MEDS: MELATONIN 3 MG TABLET 6 MG PO ×2 (00:09→21:00)
[2024-09-18] MEDS: metroNIDAZOLE/NS 500 MG IVPB 500 MG/100 ML BAG 200 MG IV ×4 (00:10→21:00)
[2024-09-18] MEDS: INSULIN LISPRO (AdmeLOG) 1 UNIT/0.01 ML UNIT SC (00:32)
[2024-09-18 06:06] LABS: Basophils % (Auto) 0 % (0-2.5); Eosinophils # (Auto) 0.1 Thou/mm3 (0.0-0.5); Eosinophils % (Auto) 1 % (0-10); Hematocrit 46.5 % (41.0-53.0); Hemoglobin 15.4 g/dL (13.5-16.0); Immature Granulocytes % (Auto) 0 % (0-0); Immature Granulocytes Auto 0.02 Thou/mm3 (0.00-0.00); Lymphocytes # (Auto) 1.2 Thou/mm3 (1.0-4.8); Lymphocytes % (Auto) 11 % (10-50); Mean Corpuscular HGB Conc 33.1 g/dl (31.0-37.0); Mean Corpuscular Hemoglobin 30.7 pg (25.0-35.0); Mean Corpuscular Volume 93 fL (80-100); Monocytes # (Auto) 0.8 Thou/mm3 (0.0-0.8); Monocytes % (Auto) 8 % (0-12); Neutrophils # (Auto) 8.5 Thou/mm3 (1.8-7.7); Neutrophils % (Auto) 80 % (37-80); Nucleated Red Blood Cell % 0 /100 WBC (0); Platelet Count 131 Thou/mm3 (140-440); RDW Standard Deviation 50.6 fL (35.1-43.9); Red Blood Count 5.01 Miln/mm3 (4.50-5.90); White Blood Count 10.6 Thou/mm3 (3.8-10.6)
[2024-09-18 06:16] LABS: INR 1.1 (0.9-1.3); Partial Thromboplastin Time 25.5 Seconds (22.0-36.0); Prothrombin Time 11.8 Seconds (9.0-12.2)
[2024-09-18 06:33] LABS: Alanine Aminotransferase 293 U/L (10-49); Albumin, Serum 3.3 gm/dL (3.4-4.8); Albumin/Globulin Ratio 1.1 (1.2-2.2); Alkaline Phosphatase 181 U/L (46-116); Anion Gap 8 (7-16); Aspartate Amino Transferase 293 U/L (0-34); BUN/Creatinine Ratio 16 Ratio (12-20); Bilirubin,Total 4.5 mg/dL (0.3-1.2); Blood Urea Nitrogen 13 mg/dL (9-23); Calcium 9.2 mg/dL (8.3-10.6); Calcium (Corrected) 9.8 mg/dL (8.5-10.1); Carbon Dioxide 28.6 mMol/L (20.0-31.0); Chloride 102 mMol/L (98-107); Creatinine (Component) 0.8 mg/dL (0.6-1.3); Globulin 3.1 gm/dL (2.3-3.5); Glucose 189 mg/dL (74-106); Osmolality,Calculated 282 (275-295); Phosphorous 3.5 mg/dL (2.4-5.1); Potassium 4.2 mMol/L (3.4-5.1); Sodium 139 mMol/L (136-145); Total Protein 6.4 gm/dL (5.7-8.2); eGFR > 60 See Note
[2024-09-18 06:47] LABS: Magnesium 1.8 mg/dL (1.6-2.6)
[2024-09-18 08:31] LABS: Glucose Estimated Average 206 mg/dL (80-131); Hemoglobin A1C 8.8 % Hgb (4.8-6.0)
[2024-09-18] MEDS: INSULIN GLARGINE (Lantus) 5 UNIT/0.05 ML (PER 5 UNITS) 10 UNIT SC (08:33)
[2024-09-18] MEDS: cefTRIAXone/D5w 1gm IV premix 1 GM/50 ML BAG IV (08:34)
[2024-09-18 09:09] LABS: Hepatitis B Core Antibody IgM Non Reactive (Non React); Hepatitis B Surface Ab NonReact(Not Immune) (Immune); Hepatitis B Surface Antigen Non Reactive (Non React); Hepatitis C Antibody Non Reactive (Non React)
--- NOTE | 2024-09-18 09:23 | PC.SS ---
Follow up note: Gallstone Pacreatitis. On IV antibiotic.
--- NOTE | 2024-09-18 12:33 | PD.SURPROG ---
Documentation for date of: 09/18/24 Subjective Subjective Narrative: Patient is seen and examined. His pain is slightly improving Exam Vital Signs Temp Pulse Resp BP Pulse Ox O2 Del Method O2 Flow Rate 96.9 F 87 19 124/77 97 Nasal Cannula 3 09/18/24 08:00 09/18/24 08:00 09/18/24 08:00 09/18/24 08:00 09/18/24 08:00 09/18/24 08:00 09/17/24 21:47 Constitutional Constitutional: no acute distress Routine Abdominal Exam Comments: Abdomen is soft and obese. He still has epigastric and right upper quadrant tenderness to deep palpation with guarding Assessment & Plan Assessment Additional comments: Gallstone pancreatitis. Clinically slightly improvement however liver enzymes went up Plan Will keep n.p.o. with IV fluids. If continues to improve clinically, will plan for laparoscopic possible open cholecystectomy with cholangiogram tomorrow. Risks include but not limited to infection, bleeding, injury to bowel, liver, stomach, bile duct, retained stone, bile leak, abdominal sepsis and or abdominal abscess, need for further procedure and or operation, pneumonia and blood clot discussed with the patient. Benefits and alternatives explained to him, all his questions answered, he agreed and consented to proceed with the operation.
--- NOTE | 2024-09-18 15:43 | ESPR_ITS ---
<Statement entered by Russell Bowman MD - 09/18/24 22:10> Patient was seen and examined at bedside. I agree on the assessment and plan on this note. - Patient's plan and care discussed with my attending, Dr. Candice Bowman MD Internal Medicine PGY-2 Documentation for date of: 09/18/24 Subjective Subjective Interval history: Patient examined at bedside today. No acute overnight events. Patient is requesting to drink water. He is wondering when he is going for surgery. He says his abdominal pain is much better. No other complaints at this time. Exam Vital Signs Temp Pulse Resp BP Pulse Ox O2 Del Method O2 Flow Rate 97.8 F 97 26 H 129/77 95 Nasal Cannula 3 09/18/24 12:00 09/18/24 12:00 09/18/24 12:00 09/18/24 12:00 09/18/24 12:00 09/18/24 12:00 09/17/24 21:47 Narrative Exam General: AAOx3, morbidly obese male, NAD HEENT: Moist mucous membranes, conjunctiva clear, EOMI, PERRLA, Cardiovascular: S1, S2, radial pulses +2 bilat, RRR Pulmonary: CTAB bilat no cough, no wheezing GI: Slight tenderness to palpitation, slight distension, bowel sounds present Extremities: No presence of trace or pitting edema in lower extremities bilaterally, dorsalis pedis pulses +2 bilaterally Neuro: AAOx3, no focal motor or sensory deficits in the UE or LE bilat Psych: Good judgement, thought and behavior. Cooperative Objective Labs 09/19/24 05:01 09/19/24 05:01 Labs: Laboratory Results - last 24 hr 09/17/24 09/17/24 09/18/24 17:39 17:49 04:53 WBC 10.6 RBC 5.01 Hgb 15.4 Hct 46.5 MCV 93 MCH 30.7 MCHC 33.1 RDW Std Deviation 50.6 H Plt Count 131 L Neut % (Auto) 80 Lymph % (Auto) 11 Will % (Auto) 8 Eos % (Auto) 1 Baso % (Auto) 0 Neut # (Auto) 8.5 H Lymph # (Auto) 1.2 Will # (Auto) 0.8 Eos # (Auto) 0.1 Baso # (Auto) 0.0 Immature Gran # (Auto) 0.02 H Absolute Nucleated RBC 0.00 Immature Gran % 0 Nucleated RBC % 0 PT 11.8 INR 1.1 APTT 25.5 Sodium 139 Potassium 4.2 Chloride 102 Carbon Dioxide 28.6 Anion Gap 8 BUN 13 Creatinine 0.8 Estim Creat Clear Calc 104.0 eGFR > 60 BUN/Creatinine Ratio [address] Glu mg/dL 206 H Hemoglobin A1c 8.8 H Calculated Osmolality 282 Calcium 9.2 Corrected Calcium 9.8 Phosphorus 3.5 Magnesium 1.8 Total Bilirubin 4.5 H D AST 293 H ALT 293 H Alkaline Phosphatase 181 H D Total Protein 6.4 Albumin 3.3 L Globulin 3.1 Albumin/Globulin Ratio 1.1 L Triglycerides 107 Cholesterol 136 LDL Cholesterol, Calc 76 HDL Cholesterol 39 L Cholesterol/HDL Ratio 3.5 L TSH 0.80 Ur Collection Type Clean Catch Urine Color Yellow Urine Clarity Cloudy A Urine pH 5.5 Ur Specific [place] 1.031 Urine Protein 1+ A Urine Glucose (UA) 1+ A Urine Ketones Trace Urine Blood 2+ A Urine Nitrite Negative Urine Bilirubin 1+ A Urine Urobilinogen (Auto) Negative Ur Leukocyte Esterase Positive Urine RBC 13 H Urine WBC 371 H Ur Squamous Epith Cells 1 Urine Bacteria Rare Hep Bs Antigen Non Reactive Hep Bs Antibody NonReact(Not Immune) L Hep B Core IgM Ab Non Reactive Hepatitis C Antibody Non Reactive Quality Measures Quality Measures none Advance care planning discussed with:: patient Assessment & Plan Assessment Current Active Medications: Generic Name Dose Route Start Last Admin Trade Name Freq PRN Reason Stop Dose Admin Acetaminophen 650 mg 09/17/24 18:38 Acetaminophen 325 Mg Tablet PO 10/17/24 18:37 Q6H PRN Fever >100 or pain 1-3 Hydrocodone Bitart/Acetaminophen 1 tab 09/17/24 18:38 Hydrocodone/Apap 10/325 Tab PO 09/22/24 18:37 Q4H PRN PAIN SCALE 4-6 (Moderate Dextrose 25 ml 09/17/24 10:51 Dextrose 50%-Water Inj 50 Ml Syringe IV 10/17/24 10:50 Q15MIN PRN BG 50-70 responsive npo pt Dextrose 50 ml 09/17/24 10:51 Dextrose 50%-Water Inj 50 Ml Syringe IV 10/17/24 10:50 Q15MIN PRN BG <50 OR BG <70 & pt unresponsive Docusate Sodium 100 mg 09/17/24 18:46 Docusate Sod 100 Mg Capsule PO 10/17/24 18:45 QDAY PRN constipation Protocol Finasteride 5 mg 09/18/24 09:00 09/18/24 08:28 Finasteride 5 Mg Tablet PO 10/18/24 08:59 Not Given QDAY NITIN Glucagon 1 mg 09/17/24 10:51 Glucagon Inj 1 Mg Vial IM Q15MIN PRN BG <70, and no IV access Lactated Ringer's 1,000 mls @ 150 mls/hr 09/17/24 18:45 09/18/24 08:34 Lactated Ringers IV 10/17/24 18:44 150 mls/hr .Q6H40M NITIN Administration Ceftriaxone Sodium/Dextrose 1 gm in 50 mls @ 100 mls/hr 09/18/24 09:00 09/18/24 08:34 Rocephin/D5w 1gm Iv Premix IV 09/25/24 08:59 100 mls/hr QDAY NITIN Administration Metronidazole 500 mg in 100 mls @ 200 mls/hr 09/17/24 23:33 09/18/24 15:22 Flagyl 500 Mg Iv IV 09/24/24 23:32 200 mls/hr Q8HR NITIN Administration Insulin Glargine 10 unit 09/18/24 09:00 09/18/24 08:33 Insulin Glargine (Lantus) 5 Unit/0.05 Ml (Per 5 Units) SC 10/18/24 08:59 10 unit QDAY NITIN Administration Insulin Human Lispro 0 unit 09/18/24 18:00 Insulin Lispro (Admelog) 1 Unit/0.01 Ml Unit SC 10/18/24 17:59 Q6HR NITIN Protocol Lisinopril 40 mg 09/18/24 09:00 09/18/24 08:28 Lisinopril 20 Mg Tablet PO 10/18/24 08:59 Not Given QDAY NITIN Melatonin 6 mg 09/17/24 21:00 09/18/24 00:09 Melatonin 3 Mg Tablet PO 10/17/24 20:59 6 mg HS NITIN Administration Morphine Sulfate 2 mg 09/17/24 18:38 Morphine Sulf Inj 10 Mg/Ml Vial IVP 09/22/24 18:37 Q4H PRN PAIN SCALE 7-10 (Severe Home Medication- 1 drop 09/17/24 21:00 09/18/24 12:22 Please Speak With BOTH EYES 10/17/24 20:59 Not Given Patient Caregiver To QID NITIN Have Rx Brought To [facility] Home Medication- 1 drop 09/17/24 21:00 09/18/24 08:28 Please Speak With BOTH EYES 10/17/24 20:59 Not Given Patient Caregiver To BID NITIN Have Rx Brought To [facility] Home Medication- 8 mg 09/18/24 09:00 09/18/24 08:28 Please Speak With PO 10/18/24 08:59 Not Given Patient Caregiver To QDAY NITIN Have Rx Brought To [facility] Ondansetron HCl 4 mg 09/17/24 07:39 09/17/24 08:55 Ondansetron Inj 2 Mg/Ml Inj 2 Ml IVP 09/20/24 07:38 4 mg Q6H PRN Administration PERSISTENT NAUSEA OR VOMITING Tamsulosin HCl 0.8 mg 09/18/24 09:00 09/18/24 08:29 Tamsulosin Hcl 0.4 Mg Capsule PO 10/18/24 08:59 Not Given QDAY [facility] Plan Assessment Artie is a 78 y/o male with PMHx of type 2 diabetes, hypertension, BPH, cardiac arrhythmias, hyperlipidemia, ANDI, RA, psoriasis, chronic bilateral lower extremity edema, morbid obesity, status post CVA who is admitted for gallstone pancreatitis. #Gallstone pancreatitis Imaging showing pancreatitis and stones No CBD on MRCP Lipid panel unremarkable for hypertriglyceridemia Pt will need abx and surgical intervention with aggressive fluid resusicatation General Surgery planning to do surgery tomorrow if patient continues to improve Plan: ? LR 150 cc/hr ? Flagyl and Rocephin ? Continue n.p.o. ? Multimodal pain analgesia ? Antiemetics ? Morning Coag Panel and holding morning DVT prophylaxis #Chronic A-fib [id number]: 7 HAS-BLED: 3 Rate:Controlled Rhythm: Regular Plan: ? Resumed Coreg 12.5 mg twice daily ? Keep Mag and K+ above 2 and 4 respectively ? Holding A/C, will resume after surgery ? Telemetry #Hypertension #Hyperlipidemia Chronic LDL 83 Plan: ? Resumed home Coreg 12.5 twice daily ? Will resume other home blood pressure medicines once blood pressure continues to hold #BPH Plan: ? Resumed home Flomax, Silodosin, Finasteride #Insullin Dependent type II Diabetes mellitus A1c 7.0 Plan: ? Sliding scale insulin q6h ? Hypoglycemic protocol in place ? Blood sugar checks q6h ? Lantus 10 units #Health Maintenance Disposition: MedSurg DVT prophylaxis: Heparin subq GI prophylaxis: Protonix Diet: N.p.o. CODE STATUS: Full Patient seen and care discussed with my senior resident, Dr. Bowman, and my attending physician, Dr. Candice Grace, PGY-1 Attending Provider Attestation/Addendum I reviewed labs, imaging, EKG, home medications and prior available records. Face to face evaluation was performed by me. I have personally examined the patient and discussed assessment and plan with the IM team. I reviewed the resident note and agree with the plan with exceptions as below. 78-year-old male with history of hypertension, diabetes mellitus type 2, chronic lower extremity swelling, BPH, morbid obesity, who presented with a chief complaint of abdominal pain, nausea, and vomiting. He was found to have acute pancreatitis in the setting of cholelithiasis. Acute pancreatitis: Likely in setting of cholelithiasis. No reported history of alcohol use. Start IV hydration at 150 cc/h. Management of pain with opiates as needed. Management of nausea/vomiting with IV Zofran as needed Consulted surgery: Will plan for cholecystectomy once pancreatitis improves. Recommended to keep the patient n.p.o. continue IV hydration and IV antibiotics Rocephin/Flagyl Transaminitis: Likely in setting of acute pancreatitis and cholelithiasis. Uptrending. Continue to monitor closely Type 2 diabetes mellitus: A1c is 8.8. Start the patient on long-acting insulin 10 units plus sliding scale insulin. Adjust based on the future fingersticks. Monitor fingersticks. Essential hypertension: Resume antihypertensive treatment once reconciled BPH: Resume home medications Atrial fibrillation with controlled ventricular rhythm: Hold anticoagulation prior to cholecystectomy
[2024-09-18] MEDS: carVEDILOL 12.5 MG TABLET PO (20:59)
[2024-09-19] VITALS (11 sets, daily range): BP systolic 138–164; BP diastolic 81–100; PULSE 73–90; RESP 15–29; TEMP 35.9–36.5; O2SAT 93–99; BMI 45.1
[2024-09-19] MEDS: RINGERS LACTATED 1000 ML 1,000 ML 150 ML IV ×2 (05:43→18:09)
[2024-09-19] MEDS: metroNIDAZOLE/NS 500 MG IVPB 500 MG/100 ML BAG 200 MG IV ×3 (05:43→21:40)
[2024-09-19 06:06] LABS: INR 1.1 (0.9-1.3); Partial Thromboplastin Time 21.8 Seconds (22.0-36.0); Prothrombin Time 12.4 Seconds (9.0-12.2)
[2024-09-19 06:16] LABS: Basophils % (Auto) 0 % (0-2.5); Eosinophils # (Auto) 0.2 Thou/mm3 (0.0-0.5); Eosinophils % (Auto) 2 % (0-10); Hematocrit 43.8 % (41.0-53.0); Hemoglobin 15.2 g/dL (13.5-16.0); Immature Granulocytes % (Auto) 0 % (0-0); Immature Granulocytes Auto 0.04 Thou/mm3 (0.00-0.00); Lymphocytes # (Auto) 1.9 Thou/mm3 (1.0-4.8); Lymphocytes % (Auto) 18 % (10-50); Mean Corpuscular HGB Conc 34.7 g/dl (31.0-37.0); Mean Corpuscular Hemoglobin 31.3 pg (25.0-35.0); Mean Corpuscular Volume 90 fL (80-100); Monocytes # (Auto) 0.9 Thou/mm3 (0.0-0.8); Monocytes % (Auto) 9 % (0-12); Neutrophils # (Auto) 7.7 Thou/mm3 (1.8-7.7); Neutrophils % (Auto) 71 % (37-80); Nucleated Red Blood Cell % 0 /100 WBC (0); Platelet Count 87 Thou/mm3 (140-440); RDW Standard Deviation 49.5 fL (35.1-43.9); Red Blood Count 4.86 Miln/mm3 (4.50-5.90); White Blood Count 10.8 Thou/mm3 (3.8-10.6)
[2024-09-19 06:28] LABS: Alanine Aminotransferase 204 U/L (10-49); Albumin, Serum 2.9 gm/dL (3.4-4.8); Albumin/Globulin Ratio 1.1 (1.2-2.2); Alkaline Phosphatase 183 U/L (46-116); Anion Gap 11 (7-16); Aspartate Amino Transferase 139 U/L (0-34); BUN/Creatinine Ratio 22 Ratio (12-20); Bilirubin,Total 3.6 mg/dL (0.3-1.2); Blood Urea Nitrogen 13 mg/dL (9-23); Calcium (Corrected) 8.9 mg/dL (8.5-10.1); Carbon Dioxide 28.3 mMol/L (20.0-31.0); Chloride 107 mMol/L (98-107); Creatinine (Component) 0.6 mg/dL (0.6-1.3); Estimated Creatinine Clearance 138.7 mL/min (>60); Globulin 2.6 gm/dL (2.3-3.5); Glucose 158 mg/dL (74-106); Magnesium 1.7 mg/dL (1.6-2.6); Osmolality,Calculated 293 (275-295); Phosphorous 2.1 mg/dL (2.4-5.1); Potassium 3.9 mMol/L (3.4-5.1); Sodium 146 mMol/L (136-145); Total Protein 5.5 gm/dL (5.7-8.2); eGFR > 60 See Note
--- NOTE | 2024-09-19 09:14 | PC.SS ---
Late note 09-18-24: SS met with patient regarding his d/c plan. Pt is alert/oriented. Pt was admitted for Acute Pancreatitis. Pt is a resident at [facility]. Pt confirmed demographic and contact information is correct on facesheet. Pt transfers with assistance into wheelchair. Pt requires assistance with all ADLs. Pt does not utilizes O2 at [facility]. Pt named his dtr, Dagmar Barroso, phone# [phone] medical decision maker if he is unable. Patient?s choice is to return to [facility] upon d/c. SS spoke to Samantha Oseguera from [facility] who states pt does not require insurance authorization to return and he is on bedhold. D/C plan: [facility] Next of Kin: Williams Barroso, dtr, phone# [phone] PCP: Dr. Michelle Address: Correct on facesheet
[2024-09-19] MEDS: cefTRIAXone/D5w 1gm IV premix 1 GM/50 ML BAG IV (09:40)
[2024-09-19] MEDS: POT PHOS 15 mMol in NS 250 ML 15 MMOL/250 ML BAG 62.5 MMOL IV (09:40)
--- NOTE | 2024-09-19 13:54 | ESPR_ITS ---
Documentation for date of: 09/19/24 Subjective Subjective Interval history: Patient examined at bedside today. No acute overnight events. Patient is wondering if he can eat or drink anything. He is wondering when she will need to surgery. He reports that his abdominal pain is about the same. No other complaints at this time. Exam Vital Signs Temp Pulse Resp BP Pulse Ox O2 Del Method O2 Flow Rate 96.6 F L 86 15 160/100 H 97 Nasal Cannula 3 09/19/24 08:00 09/19/24 09:38 09/19/24 08:00 09/19/24 09:38 09/19/24 08:00 09/19/24 08:00 09/19/24 00:00 Narrative Exam General: AAOx3, morbidly obese male, NAD HEENT: Moist mucous membranes, conjunctiva clear, EOMI, PERRLA, Cardiovascular: S1, S2, radial pulses +2 bilat, RRR Pulmonary: CTAB bilat no cough, no wheezing GI: Slight tenderness to palpitation, slight distension, bowel sounds present Extremities: No presence of trace or pitting edema in lower extremities bilaterally, dorsalis pedis pulses +2 bilaterally Neuro: AAOx3, no focal motor or sensory deficits in the UE or LE bilat Psych: Good judgement, thought and behavior. Cooperative Objective Labs 09/20/24 04:25 09/20/24 04:25 Labs: Laboratory Results - last 24 hr 09/19/24 05:01 WBC 10.8 H RBC 4.86 Hgb 15.2 Hct 43.8 MCV 90 MCH 31.3 MCHC 34.7 RDW Std Deviation 49.5 H Plt Count 87 L D Neut % (Auto) 71 Lymph % (Auto) 18 [place] % (Auto) 9 Eos % (Auto) 2 Baso % (Auto) 0 Neut # (Auto) 7.7 Lymph # (Auto) 1.9 [place] # (Auto) 0.9 H Eos # (Auto) 0.2 Baso # (Auto) 0.0 Immature Gran # (Auto) 0.04 H Absolute Nucleated RBC 0.00 Immature Gran % 0 Nucleated RBC % 0 PT 12.4 H INR 1.1 APTT 21.8 L Sodium 146 H Potassium 3.9 Chloride 107 Carbon Dioxide 28.3 Anion Gap 11 BUN 13 Creatinine 0.6 Estim Creat Clear Calc 138.7 eGFR > 60 BUN/Creatinine Ratio 22 H Glucose 158 H Calculated Osmolality 293 Calcium 8.0 L Corrected Calcium 8.9 Phosphorus 2.1 L Magnesium 1.7 Total Bilirubin 3.6 H D AST 139 H ALT 204 H Alkaline Phosphatase 183 H Total Protein 5.5 L Albumin 2.9 L Globulin 2.6 Albumin/Globulin Ratio 1.1 L Quality Measures Quality Measures none Advance care planning discussed with:: patient Assessment & Plan Assessment Current Active Medications: Generic Name Dose Route Start Last Admin Trade Name Froylan PRN Reason Stop Dose Admin Acetaminophen 650 mg 09/17/24 18:38 Acetaminophen 325 Mg Tablet PO 10/17/24 18:37 Q6H PRN Fever >100 or pain 1-3 Hydrocodone Bitart/Acetaminophen 1 tab 09/17/24 18:38 Hydrocodone/Apap 10/325 Tab PO 09/22/24 18:37 Q4H PRN PAIN SCALE 4-6 (Moderate Carvedilol 12.5 mg 09/18/24 21:00 09/19/24 09:39 Carvedilol 12.5 Mg Tablet PO 10/18/24 20:59 Not Given BIDWM NITIN Dextrose 25 ml 09/17/24 10:51 Dextrose 50%-Water Inj 50 Ml Syringe IV 10/17/24 10:50 Q15MIN PRN BG 50-70 responsive npo pt Dextrose 50 ml 09/17/24 10:51 Dextrose 50%-Water Inj 50 Ml Syringe IV 10/17/24 10:50 Q15MIN PRN BG <50 OR BG <70 & pt unresponsive Docusate Sodium 100 mg 09/17/24 18:46 Docusate Sod 100 Mg Capsule PO 10/17/24 18:45 QDAY PRN constipation Protocol Finasteride 5 mg 09/18/24 09:00 09/19/24 09:38 Finasteride 5 Mg Tablet PO 10/18/24 08:59 Not Given QDAY NITIN Glucagon 1 mg 09/17/24 10:51 Glucagon Inj 1 Mg Vial IM Q15MIN PRN BG <70, and no IV access Heparin Sodium (Porcine) 5,000 unit 09/18/24 21:00 09/18/24 20:28 Heparin Sod Inj 5000 Unit/Ml Vial SC 10/02/24 20:59 Not Given Q12H NITIN Lactated Ringer's 1,000 mls @ 150 mls/hr 09/17/24 18:45 09/19/24 05:43 Lactated Ringers IV 10/17/24 18:44 150 mls/hr .Q6H40M NITIN Administration Ceftriaxone Sodium/Dextrose 1 gm in 50 mls @ 100 mls/hr 09/18/24 09:00 09/19/24 09:40 Rocephin/D5w 1gm Iv Premix IV 09/25/24 08:59 100 mls/hr QDAY NITIN Administration Metronidazole 500 mg in 100 mls @ 200 mls/hr 09/17/24 23:33 09/19/24 05:43 Flagyl 500 Mg Iv IV 09/24/24 23:32 200 mls/hr Q8HR NITIN Administration Insulin Glargine 10 unit 09/18/24 09:00 09/19/24 09:38 Insulin Glargine (Lantus) 5 Unit/0.05 Ml (Per 5 Units) SC 10/18/24 08:59 Not Given QDAY NITIN Insulin Human Lispro 0 unit 09/18/24 18:00 09/19/24 12:31 Insulin Lispro (Admelog) 1 Unit/0.01 Ml Unit SC 10/18/24 17:59 Not Given Q6HR [facility] Protocol Lisinopril 40 mg 09/18/24 09:00 09/19/24 09:38 Lisinopril 20 Mg Tablet PO 10/18/24 08:59 Not Given QDAY NITIN Melatonin 6 mg 09/17/24 21:00 09/18/24 21:00 Melatonin 3 Mg Tablet PO 10/17/24 20:59 6 mg HS NITIN Administration Morphine Sulfate 2 mg 09/17/24 18:38 Morphine Sulf Inj 10 Mg/Ml Vial IVP 09/22/24 18:37 Q4H PRN PAIN SCALE 7-10 (Severe Home Medication- 1 drop 09/17/24 21:00 09/19/24 12:07 Please Speak With BOTH EYES 10/17/24 20:59 Not Given Patient Caregiver To QID NITIN Have Rx Brought To [facility] Home Medication- 1 drop 09/17/24 21:00 09/19/24 12:07 Please Speak With BOTH EYES 10/17/24 20:59 Not Given Patient Caregiver To BID NITIN Have Rx Brought To [facility] Home Medication- 8 mg 09/18/24 09:00 09/19/24 09:39 Please Speak With PO 10/18/24 08:59 Not Given Patient Caregiver To QDAY [facility] Have Rx Brought To [facility] Ondansetron HCl 4 mg 09/17/24 07:39 09/17/24 08:55 Ondansetron Inj 2 Mg/Ml Inj 2 Ml IVP 09/20/24 07:38 4 mg Q6H PRN Administration PERSISTENT NAUSEA OR VOMITING Tamsulosin HCl 0.8 mg 09/18/24 09:00 09/19/24 09:39 Tamsulosin Hcl 0.4 Mg Capsule PO 10/18/24 08:59 Not Given QDAY [facility] Plan Assessment Artie is a 78 y/o male with PMHx of type 2 diabetes, hypertension, BPH, cardiac arrhythmias, hyperlipidemia, ANDI, RA, psoriasis, chronic bilateral lower extremity edema, morbid obesity, status post CVA who is admitted for gallstone pancreatitis. #Gallstone pancreatitis Imaging showing pancreatitis and stones No CBD on MRCP Lipid panel unremarkable for hypertriglyceridemia Cholecystectomy to be performed Dr. Dickson today Plan: ? LR 150 cc/hr ? Flagyl and Rocephin ? Surgery today, will resume diet afterwards ? Multimodal pain analgesia ? Antiemetics #Chronic A-fib [id number]: 7 HAS-BLED: 3 Rate:Controlled Rhythm: Regular Plan: ? Resumed Coreg 12.5 mg twice daily ? Keep Mag and K+ above 2 and 4 respectively ? Holding A/C, will resume after surgery ? Telemetry #Hypertension #Hyperlipidemia Chronic LDL 83 Plan: ? Continue home Coreg 12.5 twice daily ? Will resume other home blood pressure medicines once blood pressure continues to hold #BPH Chronic Plan: ? Continue home Flomax, Silodosin, Finasteride #Insullin Dependent type II Diabetes mellitus A1c 7.0 Plan: ? Sliding scale insulin q6h ? Hypoglycemic protocol in place ? Blood sugar checks q6h ? Lantus 10 units #Health Maintenance Disposition: MedSurg DVT prophylaxis: Heparin subq GI prophylaxis: Protonix Diet: N.p.o. CODE STATUS: Full Patient seen and care discussed with my senior resident, Dr. Bowman, and my attending physician, Dr. Candice Grace, PGY-1 Attending Provider Attestation/Addendum I reviewed labs, imaging, EKG, home medications and prior available records. Face to face evaluation was performed by me. I have personally examined the patient and discussed assessment and plan with the IM team. I reviewed the resident note and agree with the plan with exceptions as below. 78-year-old male with history of hypertension, diabetes mellitus type 2, chronic lower extremity swelling, BPH, morbid obesity, who presented with a chief complaint of abdominal pain, nausea, and vomiting. He was found to have acute pancreatitis in the setting of cholelithiasis. Acute pancreatitis: Likely in setting of cholelithiasis. No reported history of alcohol use. Start IV hydration at 150 cc/h. Management of pain with opiates as needed. Management of nausea/vomiting with IV Zofran as needed Consulted surgery: Will plan for cholecystectomy once pancreatitis improves. Recommended to keep the patient n.p.o. continue IV hydration and IV antibiotics Rocephin/Flagyl Transaminitis: Likely in setting of acute pancreatitis and cholelithiasis. Downtrending. Continue to monitor closely Type 2 diabetes mellitus: A1c is 8.8. Start the patient on long-acting insulin 10 units plus sliding scale insulin. Adjust based on the future fingersticks. Monitor fingersticks. Essential hypertension: Resume antihypertensive treatment once reconciled BPH: Resume home medications Atrial fibrillation with controlled ventricular rhythm: Hold anticoagulation prior to cholecystectomy Thrombocytopenia: Can be hemodilution versus in the setting of acute illness. No signs of active bleeding. Monitor platelet level
--- NOTE | 2024-09-19 14:18 | EVENTNT_ITS ---
Documentation for date of: 09/19/24 Event Note Event Note: Patient is scheduled for laparoscopic possible open cholecystectomy with cholangiogram. However, operating room was short an anesthesiologist and my elective cases were canceled. All other rooms are occupied at this time and w ere still pending and operating room to be available. I was informed that the likelihood of opening an operating room before 5pm is very unlikely. If unable to get in operating room by 5 PM, we will plan on doing his surgery tomorrow.
--- NOTE | 2024-09-19 17:02 | PC.SS ---
Rounding note: patient on IV fluids. Possible surgery pending.
[2024-09-19] MEDS: INSULIN LISPRO (AdmeLOG) 1 UNIT/0.01 ML UNIT SC (18:10)
[2024-09-19] MEDS: carVEDILOL 12.5 MG TABLET PO (18:10)
[2024-09-19] MEDS: MELATONIN 3 MG TABLET 6 MG PO (21:40)
[2024-09-20] VITALS (18 sets, daily range): BP systolic 136–170; BP diastolic 74–101; PULSE 74–109; RESP 13–28; TEMP 36.2–36.9; O2SAT 91–98
[2024-09-20] MEDS: RINGERS LACTATED 1000 ML 1,000 ML 150 ML IV ×2 (00:53→08:58)
[2024-09-20] MEDS: metroNIDAZOLE/NS 500 MG IVPB 500 MG/100 ML BAG 200 MG IV ×3 (05:08→22:16)
[2024-09-20 05:13] LABS: Basophils % (Auto) 0 % (0-2.5); Eosinophils # (Auto) 0.4 Thou/mm3 (0.0-0.5); Eosinophils % (Auto) 4 % (0-10); Hematocrit 42.6 % (41.0-53.0); Hemoglobin 14.4 g/dL (13.5-16.0); Immature Granulocytes % (Auto) 1 % (0-0); Immature Granulocytes Auto 0.05 Thou/mm3 (0.00-0.00); Lymphocytes # (Auto) 2.5 Thou/mm3 (1.0-4.8); Lymphocytes % (Auto) 23 % (10-50); Mean Corpuscular HGB Conc 33.8 g/dl (31.0-37.0); Mean Corpuscular Hemoglobin 31.2 pg (25.0-35.0); Mean Corpuscular Volume 92 fL (80-100); Monocytes # (Auto) 1.3 Thou/mm3 (0.0-0.8); Monocytes % (Auto) 11 % (0-12); Neutrophils # (Auto) 6.8 Thou/mm3 (1.8-7.7); Neutrophils % (Auto) 62 % (37-80); Nucleated Red Blood Cell % 0 /100 WBC (0); Platelet Count 141 Thou/mm3 (140-440); RDW Standard Deviation 50.8 fL (35.1-43.9); Red Blood Count 4.62 Miln/mm3 (4.50-5.90); White Blood Count 11.1 Thou/mm3 (3.8-10.6)
[2024-09-20 05:19] LABS: INR 1.1 (0.9-1.3); Partial Thromboplastin Time 29.2 Seconds (22.0-36.0); Prothrombin Time 12.2 Seconds (9.0-12.2)
[2024-09-20 06:17] LABS: Alanine Aminotransferase 126 U/L (10-49); Albumin, Serum 2.8 gm/dL (3.4-4.8); Albumin/Globulin Ratio 1.1 (1.2-2.2); Alkaline Phosphatase 162 U/L (46-116); Anion Gap 6 (7-16); Aspartate Amino Transferase 57 U/L (0-34); BUN/Creatinine Ratio 13 Ratio (12-20); Blood Urea Nitrogen 9 mg/dL (9-23); Calcium 7.9 mg/dL (8.3-10.6); Calcium (Corrected) 8.9 mg/dL (8.5-10.1); Carbon Dioxide 31.6 mMol/L (20.0-31.0); Chloride 105 mMol/L (98-107); Creatinine (Component) 0.7 mg/dL (0.6-1.3); Estimated Creatinine Clearance 118.9 mL/min (>60); Globulin 2.5 gm/dL (2.3-3.5); Glucose 155 mg/dL (74-106); Magnesium 1.6 mg/dL (1.6-2.6); Osmolality,Calculated 286 (275-295); Phosphorous 2.7 mg/dL (2.4-5.1); Sodium 143 mMol/L (136-145); Total Protein 5.3 gm/dL (5.7-8.2); eGFR > 60 See Note
[2024-09-20] MEDS: cefTRIAXone/D5w 1gm IV premix 1 GM/50 ML BAG IV (08:54)
--- NOTE | 2024-09-20 09:10 | PC.SS ---
Follow up note: Surgery today for Lap Cholecystectomy with Dr. Dickson. Pt will return to [facility].
--- NOTE | 2024-09-20 11:11 | ESPR_ITS ---
Documentation for date of: 09/20/24 Subjective Subjective Interval history: Patient examined at bedside today. No acute overnight events. Patient reports he is ready for surgery. He is wondering when the surgery is going to happen. He reports minimal abdominal pain at this time. No other complaints at this time. Exam Vital Signs Temp Pulse Resp BP Pulse Ox O2 Del Method O2 Flow Rate 97.1 F 90 14 146/89 H 97 Nasal Cannula 2 09/20/24 08:00 09/20/24 08:00 09/20/24 08:00 09/20/24 08:00 09/20/24 08:00 09/20/24 08:00 09/20/24 08:00 Narrative Exam General: AAOx3, morbidly obese male, NAD HEENT: Moist mucous membranes, conjunctiva clear, EOMI, PERRLA, Cardiovascular: S1, S2, radial pulses +2 bilat, RRR Pulmonary: CTAB bilat no cough, no wheezing GI: Slight tenderness to palpitation, slight distension, bowel sounds present Extremities: No presence of trace or pitting edema in lower extremities bilaterally, dorsalis pedis pulses +2 bilaterally Neuro: AAOx3, no focal motor or sensory deficits in the UE or LE bilat Psych: Good judgement, thought and behavior. Cooperative Objective Labs 09/20/24 04:25 09/20/24 04:25 Labs: Laboratory Results - last 24 hr 09/20/24 04:25 WBC 11.1 H RBC 4.62 Hgb 14.4 Hct 42.6 MCV 92 MCH 31.2 MCHC 33.8 RDW Std Deviation 50.8 H Plt Count 141 D Neut % (Auto) 62 Lymph % (Auto) 23 [place] % (Auto) 11 Eos % (Auto) 4 Baso % (Auto) 0 Neut # (Auto) 6.8 Lymph # (Auto) 2.5 [place] # (Auto) 1.3 H Eos # (Auto) 0.4 Baso # (Auto) 0.0 Immature Gran # (Auto) 0.05 H Absolute Nucleated RBC 0.00 Immature Gran % 1 H Nucleated RBC % 0 PT 12.2 INR 1.1 APTT 29.2 Sodium 143 Potassium 4.0 Chloride 105 Carbon Dioxide 31.6 H Anion Gap 6 L BUN 9 Creatinine 0.7 Estim Creat Clear Calc 118.9 eGFR > 60 BUN/Creatinine Ratio 13 Glucose 155 H Calculated Osmolality 286 Calcium 7.9 L Corrected Calcium 8.9 Phosphorus 2.7 Magnesium 1.6 Total Bilirubin 2.0 H D AST 57 H ALT 126 H Alkaline Phosphatase 162 H D Total Protein 5.3 L Albumin 2.8 L Globulin 2.5 Albumin/Globulin Ratio 1.1 L Quality Measures Quality Measures none Advance care planning discussed with:: patient Assessment & Plan Assessment Current Active Medications: Generic Name Dose Route Start Last Admin Trade Name Freq PRN Reason Stop Dose Admin Acetaminophen 650 mg 09/17/24 18:38 Acetaminophen 325 Mg Tablet PO 10/17/24 18:37 Q6H PRN Fever >100 or pain 1-3 Hydrocodone Bitart/Acetaminophen 1 tab 09/17/24 18:38 Hydrocodone/Apap 10/325 Tab PO 09/22/24 18:37 Q4H PRN PAIN SCALE 4-6 (Moderate Carvedilol 12.5 mg 09/18/24 21:00 09/20/24 08:53 Carvedilol 12.5 Mg Tablet PO 10/18/24 20:59 Not Given BIDWM NITIN Dextrose 25 ml 09/17/24 10:51 Dextrose 50%-Water Inj 50 Ml Syringe IV 10/17/24 10:50 Q15MIN PRN BG 50-70 responsive npo pt Dextrose 50 ml 09/17/24 10:51 Dextrose 50%-Water Inj 50 Ml Syringe IV 10/17/24 10:50 Q15MIN PRN BG <50 OR BG <70 & pt unresponsive Docusate Sodium 100 mg 09/17/24 18:46 Docusate Sod 100 Mg Capsule PO 10/17/24 18:45 QDAY PRN constipation Protocol Finasteride 5 mg 09/18/24 09:00 09/20/24 07:26 Finasteride 5 Mg Tablet PO 10/18/24 08:59 Not Given QDAY NITIN Glucagon 1 mg 09/17/24 10:51 Glucagon Inj 1 Mg Vial IM Q15MIN PRN BG <70, and no IV access Heparin Sodium (Porcine) 5,000 unit 09/18/24 21:00 09/18/24 20:28 Heparin Sod Inj 5000 Unit/Ml Vial SC 10/02/24 20:59 Not Given Q12H NITIN Lactated Ringer's 1,000 mls @ 150 mls/hr 09/17/24 18:45 09/20/24 08:58 Lactated Ringers IV 10/17/24 18:44 150 mls/hr .Q6H40M NITIN Administration Ceftriaxone Sodium/Dextrose 1 gm in 50 mls @ 100 mls/hr 09/18/24 09:00 09/20/24 08:54 Rocephin/D5w 1gm Iv Premix IV 09/25/24 08:59 100 mls/hr QDAY NITIN Administration Metronidazole 500 mg in 100 mls @ 200 mls/hr 09/17/24 23:33 09/20/24 05:08 Flagyl 500 Mg Iv IV 09/24/24 23:32 200 mls/hr Q8HR NITIN Administration Insulin Glargine 10 unit 09/18/24 09:00 09/20/24 07:26 Insulin Glargine (Lantus) 5 Unit/0.05 Ml (Per 5 Units) SC 10/18/24 08:59 Not Given QDAY NITIN Insulin Human Lispro 0 unit 09/18/24 18:00 09/20/24 00:15 Insulin Lispro (Admelog) 1 Unit/0.01 Ml Unit SC 10/18/24 17:59 Not Given Q6HR [facility] Protocol Lisinopril 40 mg 09/18/24 09:00 09/20/24 07:26 Lisinopril 20 Mg Tablet PO 10/18/24 08:59 Not Given QDAY NITIN Melatonin 6 mg 09/17/24 21:00 09/19/24 21:40 Melatonin 3 Mg Tablet PO 10/17/24 20:59 6 mg HS NITIN Administration Morphine Sulfate 2 mg 09/17/24 18:38 Morphine Sulf Inj 10 Mg/Ml Vial IVP 09/22/24 18:37 Q4H PRN PAIN SCALE 7-10 (Severe Home Medication- 1 drop 09/17/24 21:00 09/20/24 05:08 Please Speak With BOTH EYES 10/17/24 20:59 Not Given Patient Caregiver To QID NITIN Have Rx Brought To [facility] Home Medication- 1 drop 09/17/24 21:00 09/19/24 21:34 Please Speak With BOTH EYES 10/17/24 20:59 Not Given Patient Caregiver To BID NITIN Have Rx Brought To [facility] Home Medication- 8 mg 09/18/24 09:00 09/19/24 09:39 Please Speak With PO 10/18/24 08:59 Not Given Patient Caregiver To QDAY [facility] Have Rx Brought To [facility] Tamsulosin HCl 0.8 mg 09/18/24 09:00 09/20/24 07:27 Tamsulosin Hcl 0.4 Mg Capsule PO 10/18/24 08:59 Not Given QDAY [facility] Plan Assessment Artie is a 78 y/o male with PMHx of type 2 diabetes, hypertension, BPH, cardiac arrhythmias, hyperlipidemia, ANDI, RA, psoriasis, chronic bilateral lower extremity edema, morbid obesity, status post CVA who is admitted for gallstone pancreatitis. #Gallstone pancreatitis Imaging showing pancreatitis and stones No CBD on MRCP Lipid panel unremarkable for hypertriglyceridemia Cholecystectomy to be performed Dr. Dickson today Plan: ? LR 150 cc/hr ? Flagyl and Rocephin ? Surgery today, will resume diet afterwards ? Multimodal pain analgesia ? Antiemetics #Chronic A-fib [id number]: 7 HAS-BLED: 3 Rate:Controlled Rhythm: Regular Plan: ? Resumed Coreg 12.5 mg twice daily ? Keep Mag and K+ above 2 and 4 respectively ? Holding A/C, will resume after surgery ? Telemetry #Hypertension #Hyperlipidemia Chronic LDL 83 Plan: ? Continue home Coreg 12.5 twice daily ? Will resume other home blood pressure medicines after surgery #BPH Chronic Unsure why patient is on 2 alpha blockers Plan: ? Continue home Flomax, Finasteride ? Will hold home Silodosin #Elevated transaminases 57 AST; ALT 126 Patient does have primary hepatocellular disease seen on imaging Plan: ? Trend with CMP #Insullin Dependent type II Diabetes mellitus A1c 7.0 Plan: ? Sliding scale insulin q6h ? Hypoglycemic protocol in place ? Blood sugar checks q6h ? Lantus 10 units #Hepatitis B nonreactive surface antibody Other markers of acute hepatitis panel unremarkable Plan: ? Recommend outpatient hepatitis B vaccine #Thrombocytopenia, improving Plan: ? Trend CBC #Health Maintenance Disposition: MedSurg DVT prophylaxis: Heparin subq GI prophylaxis: Protonix Diet: N.p.o., will resume diet after surgery CODE STATUS: Full Patient seen and care discussed with my attending physician, Dr. Candice Grace, PGY-1 Attending Provider Attestation/Addendum I reviewed labs, imaging, EKG, home medications and prior available records. Face to face evaluation was performed by me. I have personally examined the patient and discussed assessment and plan with the IM team. I reviewed the resident note and agree with the plan with exceptions as below. 78-year-old male with history of hypertension, diabetes mellitus type 2, chronic lower extremity swelling, BPH, morbid obesity, who presented with a chief complaint of abdominal pain, nausea, and vomiting. He was found to have acute pancreatitis in the setting of cholelithiasis. Acute pancreatitis: Symptoms improved. Status post IV hydration. In the setting of cholelithiasis. Management as below Consulted surgery: S/p cholecystectomy on 09/20 Transaminitis: Likely in setting of acute pancreatitis and cholelithiasis. Downtrending. Continue to monitor closely Type 2 diabetes mellitus: A1c is 8.8. Started the patient on long-acting insulin 10 units plus sliding scale insulin. Adjust based on the future fingersticks. Monitor fingersticks. Essential hypertension: Resume antihypertensive treatment once reconciled BPH: Resume home medications Atrial fibrillation with controlled ventricular rhythm: Resume anticoagulation after cholecystectomy Thrombocytopenia: Can be hemodilution versus in the setting of acute illness. No signs of active bleeding. Monitor platelet level
--- NOTE | 2024-09-20 12:17 | PC.SS ---
SS has sent updated information to [facility] using [employer].
--- NOTE | 2024-09-20 13:37 | ESOP_ITS ---
Date of Procedure 09/20/24 Pre Op Diagnosis Gallstone pancreatitis Post Op Diagnosis Cholelithiasis with acute cholecystitis Cirrhosis of the liver with ascites Procedure Laparoscopic cholecystectomy with intraoperative cholangiogram Findings Distended gallbladder with multiple gallstones and significant pericholecystic edema. Unremarkable biliary anatomy without obvious CBD stones. Mild to moderate cirrhosis of the liver with minimal ascites Procedure Description Patient was brought into the operating room in supine position. After administration of general endotracheal anesthesia abdomen was prepped and draped in standard surgical manner. A Veress needle was inserted through the umbilicus and pneumoperitoneum was obtained up to 15 mmHg. The Veress needle was then removed, a 5 mm infraumbilical incision was made and the 5mm trocar was inserted. Laparoscopic camera was placed. Under direct visualization a laparoscopic camera a 10 mm trocar was placed in subxiphoid and two 5 mm trocars placed in right upper quadrant. The anterior surface of the liver had nodularities suspicious for mild to moderate cirrhosis of the liver. He was also noted to have minimal ascites around the liver. The gallbladder was identified and was noted to be very distended with multiple gallstones and significant pericholecystic inflammation. It was retracted cephalad and laterally. Dissection started near the infundibulum of gallbladder where cystic duct and gallbladder junction clearly identified. The cystic duct was circumferentially dissected off the peritoneum and surrounding inflammatory tissue. The critical view of safety was clearly demonstrated. An Endo Clip placed near the cystic duct and gallbladder junction and a small ductotomy was performed. Cholangiogram catheter was placed through the ductotomy site and contrast was injected. Cholangiogram x-ray was obtained that revealed filling of contrast into the duodenum and unremarkable biliary anatomy. There was no obvious evidence of CBD or hepatic duct stones. The cholangiogram catheter was removed and the cystic duct was divided between 2 endoclips proximally and one distally. The cystic artery was then divided between 2 endoclips proximally and 1 distally. The gallbladder was then from the liver bed using electrocautery. The gallbladder was then placed inside an Endo Catch and removed from the abdomen utilizing subxiphoid trocar site. The area was copiously and thoroughly washed and irrigated, all the fluid was suctioned and the suction fluid returned clear. Hemostasis achieved using electrocautery. Endoclips noted be in place and intact without any bleeding or any leakage. Hemostasis was adequate and satisfactory. The subxiphoid trocar sites fascial defect was closed with 0 Vicryl using Endo Closure device. Instruments and trocars removed, pneumoperitoneum was evacuated and the incisions closed with 4- 0 Monocryl in subcuticular fashion. Instrument needle and sponge counts were all reported to be correct X2. Patient tolerated the procedure well, was extubated, breathing spontaneously and without difficulty and was transferred to postanesthesia care in stable condition. Anesthesia GETA and local Pathology / specimen Other (Gallbladder and contents) Estimated Blood Loss 25 Condition Stable Disposition PACU Surgeon Azalea Dickson MD Surgical Staff Operation Date: 09/20/24 14:15 Case Staff RENOVATOR MACHINE OPERATOR: Ata Lui
--- NOTE | 2024-09-20 13:42 | SUR.PHASEI ---
pt received from OR in recovery bay 7. pt asleep but responds to voice, breathing unlabored on oxymask 10l. v/s stable. pt dressing to abd dermabond x4 cdi. report received from Chitra SCHWARTZ and Neha GOODEN.
--- NOTE | 2024-09-20 14:00 | XR_ITS ---
Examination: Operative cholangiogram Date and time: September 20, 2024 1307 hours INDICATIONS: Laparoscopic cholecystectomy postop cholangiogram TECHNIQUE AND FINDINGS: AP portable supine abdomen demonstrates opacification of the common bile duct and intrahepatic biliary tree No enlargement common bile duct No obstruction No common hepatic or common bile duct stone IMPRESSION: No common hepatic or common bile duct stone
[2024-09-20] MEDS: fentaNYL CIT INJ 50 mCg/ML AMP 2ML IVP (14:12)
--- NOTE | 2024-09-20 14:33 | SUR.PHASEI ---
pt asleep but responds to voice, breathing unlabored on nc 4l. v/s stable. pt dressing to abd dermabond x4 cdi. report called to Janet SCHWARTZ. pt will be transferred to room at this time.
[2024-09-20] MEDS: Lisinopril 20 MG TABLET 40 MG PO (15:15)
[2024-09-20] MEDS: carVEDILOL 12.5 MG TABLET PO (15:16)
[2024-09-20] MEDS: INSULIN LISPRO (AdmeLOG) 1 UNIT/0.01 ML UNIT SC ×2 (16:31→20:46)
[2024-09-20] MEDS: MELATONIN 3 MG TABLET 6 MG PO (20:34)
[2024-09-20] MEDS: HYDROcodone/APAP 10/325 TAB PO (20:34)
[2024-09-21] VITALS (15 sets, daily range): BP systolic 107–157; BP diastolic 67–83; PULSE 76–95; RESP 13–26; TEMP 36.1–36.7; O2SAT 94–97
[2024-09-21 05:30] LABS: Basophils % (Auto) 0 % (0-2.5); Eosinophils # (Auto) 0.2 Thou/mm3 (0.0-0.5); Eosinophils % (Auto) 2 % (0-10); Hematocrit 44.4 % (41.0-53.0); Hemoglobin 14.7 g/dL (13.5-16.0); Immature Granulocytes % (Auto) 1 % (0-0); Immature Granulocytes Auto 0.05 Thou/mm3 (0.00-0.00); Lymphocytes % (Auto) 20 % (10-50); Mean Corpuscular HGB Conc 33.1 g/dl (31.0-37.0); Mean Corpuscular Hemoglobin 30.9 pg (25.0-35.0); Mean Corpuscular Volume 94 fL (80-100); Monocytes # (Auto) 1.5 Thou/mm3 (0.0-0.8); Monocytes % (Auto) 15 % (0-12); Neutrophils # (Auto) 6.1 Thou/mm3 (1.8-7.7); Neutrophils % (Auto) 61 % (37-80); Nucleated Red Blood Cell % 0 /100 WBC (0); Platelet Count 127 Thou/mm3 (140-440); Red Blood Count 4.75 Miln/mm3 (4.50-5.90)
[2024-09-21] MEDS: metroNIDAZOLE/NS 500 MG IVPB 500 MG/100 ML BAG 200 MG IV ×3 (05:50→21:07)
[2024-09-21 06:04] LABS: Alanine Aminotransferase 92 U/L (10-49); Albumin, Serum 2.8 gm/dL (3.4-4.8); Albumin/Globulin Ratio 1.1 (1.2-2.2); Alkaline Phosphatase 153 U/L (46-116); Anion Gap 7 (7-16); Aspartate Amino Transferase 41 U/L (0-34); BUN/Creatinine Ratio 11 Ratio (12-20); Bilirubin,Total 1.2 mg/dL (0.3-1.2); Blood Urea Nitrogen 9 mg/dL (9-23); Carbon Dioxide 34.4 mMol/L (20.0-31.0); Chloride 102 mMol/L (98-107); Creatinine (Component) 0.8 mg/dL (0.6-1.3); Globulin 2.5 gm/dL (2.3-3.5); Glucose 180 mg/dL (74-106); Magnesium 1.6 mg/dL (1.6-2.6); Osmolality,Calculated 288 (275-295); Phosphorous 3.4 mg/dL (2.4-5.1); Potassium 4.2 mMol/L (3.4-5.1); Sodium 143 mMol/L (136-145); Total Protein 5.3 gm/dL (5.7-8.2); eGFR > 60 See Note
[2024-09-21] MEDS: Lisinopril 20 MG TABLET 40 MG PO (08:53)
[2024-09-21] MEDS: carVEDILOL 12.5 MG TABLET PO ×2 (08:54→17:53)
[2024-09-21] MEDS: FINASTERIDE 5 MG TABLET PO (08:54)
[2024-09-21] MEDS: TAMSULOSIN HCL 0.4 MG CAPSULE 0.8 MG PO (08:54)
[2024-09-21] MEDS: cefTRIAXone/D5w 1gm IV premix 1 GM/50 ML BAG IV (08:54)
[2024-09-21] MEDS: INSULIN LISPRO (AdmeLOG) 1 UNIT/0.01 ML UNIT SC ×4 (08:55→21:01)
[2024-09-21] MEDS: INSULIN GLARGINE (Lantus) 5 UNIT/0.05 ML (PER 5 UNITS) 10 UNIT SC (08:55)
[2024-09-21] MEDS: HYDROcodone/APAP 10/325 TAB PO (09:07)
[2024-09-21] MEDS: POLYETHYLENE GLYCOL 17 GM PACKET PO (11:28)
[2024-09-21] MEDS: APIXABAN 2.5 MG TABLET 5 MG PO ×2 (11:28→21:01)
[2024-09-21] MEDS: FUROSEMIDE INJ 10 MG/ML 4ML VIAL 40 MG IVP (11:28)
[2024-09-21] MEDS: DOCUSATE SOD 100 MG CAPSULE PO (11:28)
[2024-09-21] MEDS: amLODIPine BESYLATE 5 MG TABLET PO (11:28)
--- NOTE | 2024-09-21 14:31 | PD.ADDPROG ---
Addendum Progress Note Addendum Date of report being addended: 09/21/24 Narrative: Attending's attestation: I reviewed labs, imaging, EKG, home medications and prior available records. Face to face evaluation was performed by me. I have personally examined the patient and discussed assessment and plan with the IM team. I reviewed the resident note and agree with the plan with exceptions as below. 78-year-old male with history of hypertension, diabetes mellitus type 2, chronic lower extremity swelling, BPH, morbid obesity, who presented with a chief complaint of abdominal pain, nausea, and vomiting. He was found to have acute pancreatitis in the setting of cholelithiasis. Acute pancreatitis: Symptoms improved. Status post IV hydration. In the setting of cholelithiasis. Management as below Consulted surgery: S/p cholecystectomy on 09/20. Discussed with general surgery: Okay to discharge. Pending bowel movement prior to SNF placement Transaminitis: Likely in setting of acute pancreatitis and cholelithiasis. Downtrending. Continue to monitor closely Type 2 diabetes mellitus: A1c is 8.8. Started the patient on long-acting insulin plus sliding scale insulin. Adjust based on the future fingersticks. Monitor fingersticks. Essential hypertension: Resume antihypertensive treatment BPH: Resume home medications Atrial fibrillation with controlled ventricular rhythm: Resume anticoagulation after cholecystectomy Thrombocytopenia: Can be hemodilution versus due to liver cirrhosis process in the setting of acute illness. No signs of active bleeding. Monitor platelet level Liver cirrhosis: Outpatient follow-up with GI Time spent is 40 minutes. More than 50% of the time was spent on patient education and coordination of care.
--- NOTE | 2024-09-21 15:28 | ESPR_ITS ---
Documentation for date of: 09/21/24 Subjective Subjective Narrative: Pt is seen and examined. Pain is controlled. Tolerating liquids Exam Vital Signs Temp Pulse Resp BP Pulse Ox O2 Del Method O2 Flow Rate 97.4 F 85 13 117/70 96 Nasal Cannula 2 09/21/24 11:37 09/21/24 12:17 09/21/24 11:37 09/21/24 11:37 09/21/24 11:37 09/21/24 11:37 09/21/24 11:37 Constitutional Constitutional: no acute distress Routine Abdominal Exam Abdominal: Present soft, normoactive bowel sounds and tenderness (Mild yehuda- incisional tenderness. Incisions clean, dry and intact); Absent distended Assessment & Plan Assessment Additional comments: POD#1 s/p laparoscopic cholecystectomy with cholangiogram. LFT improving Plan Advance to low fat diet. May discharge from surgery stand point. May resume Eliquis day after tomorrow. Follow up with Dr. Dickson in 2 weeks. Procedures Procedures Laparoscopic cholecystectomy with intraoperative cholangiogram
--- NOTE | 2024-09-21 16:11 | PC.SS ---
Dr. Harvey stated patient has not had BM in the last 2 days, an enema was ordered. SS attempted to contact [facility] the [place] [phone] to confirm if patient can return today with no success, a message was left requesting a return call.
--- NOTE | 2024-09-21 16:15 | PD.RESDS ---
Planned Discharge Date 09/21/24 DS: Providers Provider Date of admission: 09/17/24 18:34 Primary care physician: Physician No Primary/Family Admitting Provider: Yousuf Harvey MD Attending Provider on Admission: Yousuf Harvey MD Consults: 09/17/24 16:37 Consult to General Surgery Stat Comment: Acute calculus cholecystitis Consulting Provider: Azalea Dickson 09/18/24 00:56 Referral Respiratory Therapy Routine Comment: 09/21/24 10:33 Referral Physical Therapy Routine Comment: Physician Instructions: Instructions: post op Attending Provider on DC: Marysol Grace MD Discharging Provider: Marysol Grace MD Hospital Course Hospital Course Hospital course: Discharge instructions Follow-up with PCP within 1 week Follow-up with general surgeon, Dr. Dickson Take medicines as prescribed Return to ED if your symptoms worsen return I have stopped your Rapaflo medicine as you are already on a similar medicine to this called Flomax I have adjusted your Lasix dose to 40 mg once a day rather than 40 mg 3 times a day Discharge summary was reviewed with my attending and my senior resident Dr. Marysol Grace, PGY-1 Time Spent with Patient Time attestation: Total time spent providing and/or coordinating discharge services: Exam Vital Signs Temp Pulse Resp BP Pulse Ox O2 Del Method O2 Flow Rate 97.4 F 78 19 119/73 96 Nasal Cannula 2 09/21/24 15:46 09/21/24 15:46 09/21/24 15:46 09/21/24 15:46 09/21/24 15:46 09/21/24 15:46 09/21/24 15:46 Discharge Plan Plan Patient Disposition: Xfer Skilled Nsg Fac (SNF) Care Plan Goals: Discharge instructions Follow-up with PCP within 1 week Follow-up with general surgeon, Dr. Dickson Take medicines as prescribed Return to ED if your symptoms worsen return I have stopped your Rapaflo medicine as you are already on a similar medicine to this called Flomax I have adjusted your Lasix dose to 40 mg once a day rather than 40 mg 3 times a day Prescriptions/Referrals Prescriptions/Med Rec: New furosemide [Lasix] 40 mg tablet 40 mg PO QDAY 30 Days Qty: 30 0RF Rx Instructions: Take one tablet by mouth every day Continued acetaminophen 650 mg tablet extended release 650 mg PO Q4HR PRN (Reason: pain) Patient Comments: Give 650 mg by mouth every 4 hours as needed for pain related to benign prostatic hyperplasia without lower urinary tract infection. amlodipine 5 mg tablet 5 mg PO HS Patient Comments: Give 1 tablet by mouth at bedtime related to ESSENTIAL (PRIMARY) HYPERTENSION. Hold for BP under 110 systolic apixaban 5 mg tablet 5 mg PO BID potassium chloride 20 mEq tablet extended release 20 meq PO QDAY loperamide 2 mg tablet 2 mg PO Q4H PRN (Reason: loose stool) Rx Instructions: administer after each loose stool until symptoms controlled; do not exceed 8 mg per 24 hrs lisinopril 40 mg tablet 40 mg PO QDAY tamsulosin 0.4 mg capsule 0.8 mg PO QDAY finasteride 5 mg tablet 5 mg PO QDAY carboxymethylcellulose sodium 0.5 % dropperette 1 drp Both eyes QID cholecalciferol (vitamin D3) [Vitamin D3] 125 mcg (5,000 unit) tablet 5,000 unit PO QDAY clobetasol 0.05 % solution 1 applic topical QDAY Patient Comments: Apply to scalp and behind ears topically one time a day for affected area to scalp for 2 weeks apply 4-6 drops to affected areas on scalp and behind ears. insulin glargine [Lantus U-100 Insulin] 100 unit/mL solution 20 unit subcut QDAY melatonin 5 mg tablet 6 mg PO HS Patient Comments: Give 6mg by mouth at bedtime related to Sleep Apnea carvedilol 12.5 mg tablet 12.5 mg PO BID Rx Instructions: must administer with a meal/food ketotifen fumarate 0.025 % (0.035 %) drops 1 drp ophthalmic (eye) BID Rx Instructions: administer at least 8 hours apart Humulin R Regular U-100 Insuln 100 unit/mL solution 1 sliding scale dose subcut USEASDIRECTD docusate sodium 100 mg capsule 100 mg PO QDAY PRN (Reason: constipation) diclofenac sodium [Voltaren Arthritis Pain] 1 % gel 2 g topical QID Rx Instructions: apply to single elbow, wrist or hand; for hand includes palm/fingers/back of hand Systane (propylene glycol) 0.4-0.3 % drops 1 drp ophthalmic (eye) Q8H PRN (Reason: dry eye(s)) magnesium hydroxide 400 mg/5 mL suspension 30 ml PO QDAY PRN (Reason: constipation) ibuprofen [IBU] 600 mg tablet 600 mg PO Q8H empagliflozin 25 mg tablet 25 mg PO QDAY dextromethorphan-guaifenesin [Diabetic Tussin DM] 10-100 mg/5 mL liquid 10 ml PO Q4H Discontinued silodosin [Rapaflo] 8 mg capsule 8 mg PO QDAY Rx Instructions: must administer with a meal/food furosemide 40 mg tablet 40 mg PO TID Patient Comments: Give 1 tablet by mouth three times a day for swelling to lower extremities related to essential (primary) hypertension. metoprolol succinate 100 mg tablet extended release 24 hr 100 mg PO BID Allergy Eye (naphazoline-phen) 0.025-0.3 % drops 2 drp ophthalmic (eye) QDAY PRN (Reason: allergy symptoms) hydrocodone-acetaminophen 5-325 mg tablet 1 tab PO Q6H PRN (Reason: pain) Referrals: No Primary/Family,Physician [Primary Care Provider] - Patient/Caregiver Discharge Instructions Discharge Activity: activity as tolerated Education Materials: Cholecystectomy, Preventing Surgical Site Infections, ED Pancreatitis Print Language: Montenegrin Activity Restrictions/Additional Instructions: May shower. Avoid lifting, straining, pulling or pushing for 4 weeks. May take laxatives if no bowel movements in 2 days. Follow up with Dr. Dickson in 2 weeks, please call [phone] for an appointment. Stand Alone Forms: [employer] Info., Patient Portal Info Letter Discharge Order Discharge Orders: Discharge (Routine); Ordered 09/21/24 Ordered By: Marysol Grace
--- NOTE | 2024-09-21 16:28 | PD.RESPRO ---
Documentation for date of: 09/21/24 Subjective Subjective Interval history: Patient examined at bedside today. No acute overnight events. Patient reports he has minimal abdominal pain at this time. He still has not had a bowel movement. He is able to tolerate his lunch. No other complaints at this time. Exam Vital Signs Temp Pulse Resp BP Pulse Ox O2 Del Method O2 Flow Rate 97.4 F 78 19 119/73 96 Nasal Cannula 2 09/21/24 15:46 09/21/24 15:46 09/21/24 15:46 09/21/24 15:46 09/21/24 15:46 09/21/24 15:46 09/21/24 15:46 Narrative Exam General: AAOx3, morbidly obese male, NAD HEENT: Moist mucous membranes, conjunctiva clear, EOMI, PERRLA, Cardiovascular: S1, S2, radial pulses +2 bilat, RRR Pulmonary: CTAB bilat no cough, no wheezing GI: Slight tenderness to palpitation, slight distension, bowel sounds present Extremities: No presence of trace or pitting edema in lower extremities bilaterally, dorsalis pedis pulses +2 bilaterally Neuro: AAOx3, no focal motor or sensory deficits in the UE or LE bilat Psych: Good judgement, thought and behavior. Cooperative Objective Labs 09/22/24 05:10 09/22/24 05:10 Labs: Laboratory Results - last 24 hr 09/21/24 04:26 WBC 10.0 RBC 4.75 Hgb 14.7 Hct 44.4 MCV 94 MCH 30.9 MCHC 33.1 RDW Std Deviation 51.0 H Plt Count 127 L Neut % (Auto) 61 Lymph % (Auto) 20 [place] % (Auto) 15 H Eos % (Auto) 2 Baso % (Auto) 0 Neut # (Auto) 6.1 Lymph # (Auto) 2.0 [place] # (Auto) 1.5 H Eos # (Auto) 0.2 Baso # (Auto) 0.0 Immature Gran # (Auto) 0.05 H Absolute Nucleated RBC 0.00 Immature Gran % 1 H Nucleated RBC % 0 Sodium 143 Potassium 4.2 Chloride 102 Carbon Dioxide 34.4 H Anion Gap 7 BUN 9 Creatinine 0.8 Estim Creat Clear Calc 104.0 eGFR > 60 BUN/Creatinine Ratio 11 L Glucose 180 H Calculated Osmolality 288 Calcium 8.0 L Corrected Calcium 9.0 Phosphorus 3.4 Magnesium 1.6 Total Bilirubin 1.2 D AST 41 H ALT 92 H Alkaline Phosphatase 153 H Total Protein 5.3 L Albumin 2.8 L Globulin 2.5 Albumin/Globulin Ratio 1.1 L Quality Measures Quality Measures none Advance care planning discussed with:: patient Assessment & Plan Assessment Current Active Medications: Generic Name Dose Route Start Last Admin Trade Name Freq PRN Reason Stop Dose Admin Acetaminophen 650 mg 09/17/24 18:38 Acetaminophen 325 Mg Tablet PO 10/17/24 18:37 Q6H PRN Fever >100 or pain 1-3 Hydrocodone Bitart/Acetaminophen 1 tab 09/17/24 18:38 09/21/24 09:07 Hydrocodone/Apap 10/325 Tab PO 09/22/24 18:37 1 tab Q4H PRN Administration PAIN SCALE 4-6 (Moderate Amlodipine Besylate 5 mg 09/21/24 10:00 09/21/24 11:28 Amlodipine Besylate 5 Mg Tablet PO 10/21/24 09:59 5 mg QDAY NITIN Administration Apixaban 5 mg 09/21/24 10:00 09/21/24 11:28 Apixaban 2.5 Mg Tablet PO 10/21/24 09:59 5 mg BID NITIN Administration Carvedilol 12.5 mg 09/18/24 21:00 09/21/24 08:54 Carvedilol 12.5 Mg Tablet PO 10/18/24 20:59 12.5 mg BIDWM NITIN Administration Dextrose 25 ml 09/17/24 10:51 Dextrose 50%-Water Inj 50 Ml Syringe IV 10/17/24 10:50 Q15MIN PRN BG 50-70 responsive npo pt Dextrose 50 ml 09/17/24 10:51 Dextrose 50%-Water Inj 50 Ml Syringe IV 10/17/24 10:50 Q15MIN PRN BG <50 OR BG <70 & pt unresponsive Docusate Sodium 100 mg 09/17/24 18:46 09/21/24 11:28 Docusate Sod 100 Mg Capsule PO 10/17/24 18:45 100 mg QDAY PRN Administration constipation Protocol Finasteride 5 mg 09/18/24 09:00 09/21/24 08:54 Finasteride 5 Mg Tablet PO 10/18/24 08:59 5 mg QDAY NITIN Administration Furosemide 40 mg 09/21/24 10:45 09/21/24 11:28 Furosemide Inj 10 Mg/Ml 4ml Vial IVP 10/21/24 10:44 40 mg QDAY NITIN Administration Glucagon 1 mg 09/17/24 10:51 Glucagon Inj 1 Mg Vial IM Q15MIN PRN BG <70, and no IV access Ceftriaxone Sodium/Dextrose 1 gm in 50 mls @ 100 mls/hr 09/18/24 09:00 09/21/24 08:54 Rocephin/D5w 1gm Iv Premix IV 09/25/24 08:59 100 mls/hr QDAY NITIN Administration Metronidazole 500 mg in 100 mls @ 200 mls/hr 09/17/24 23:33 09/21/24 14:22 Flagyl 500 Mg Iv IV 09/24/24 23:32 200 mls/hr Q8HR NITIN Administration Insulin Glargine 10 unit 09/18/24 09:00 09/21/24 08:55 Insulin Glargine (Lantus) 5 Unit/0.05 Ml (Per 5 Units) SC 10/18/24 08:59 10 unit QDAY NITIN Administration Insulin Human Lispro 0 unit 09/20/24 17:00 09/21/24 12:47 Insulin Lispro (Admelog) 1 Unit/0.01 Ml Unit SC 10/20/24 16:59 3 unit ACHS NITIN Administration Protocol Lisinopril 40 mg 09/18/24 09:00 09/21/24 08:53 Lisinopril 20 Mg Tablet PO 10/18/24 08:59 40 mg QDAY NITIN Administration Melatonin 6 mg 09/17/24 21:00 09/20/24 20:34 Melatonin 3 Mg Tablet PO 10/17/24 20:59 6 mg HS NITIN Administration Morphine Sulfate 2 mg 09/17/24 18:38 Morphine Sulf Inj 10 Mg/Ml Vial IVP 09/22/24 18:37 Q4H PRN PAIN SCALE 7-10 (Severe Home Medication- 1 drop 09/17/24 21:00 09/21/24 05:44 Please Speak With BOTH EYES 10/17/24 20:59 Not Given Patient Caregiver To QID NITIN Have Rx Brought To [facility] Home Medication- 1 drop 09/17/24 21:00 09/20/24 20:28 Please Speak With BOTH EYES 10/17/24 20:59 Not Given Patient Caregiver To BID NITIN Have Rx Brought To [facility] Home Medication- 8 mg 09/18/24 09:00 09/20/24 12:20 Please Speak With PO 10/18/24 08:59 Not Given Patient Caregiver To QDAY NITIN Have Rx Brought To [facility] Tamsulosin HCl 0.8 mg 09/18/24 09:00 09/21/24 08:54 Tamsulosin Hcl 0.4 Mg Capsule PO 10/18/24 08:59 0.8 mg QDAY [facility] Administration Plan Assessment Artie is a 78 y/o male with PMHx of type 2 diabetes, hypertension, BPH, cardiac arrhythmias, hyperlipidemia, ANDI, RA, psoriasis, chronic bilateral lower extremity edema, morbid obesity, status post CVA who is admitted for gallstone pancreatitis. #Gallstone pancreatitis #Cholelithiasis with cholecystitis status post cholecystectomy postoperative day [address] Dickson Intraoperative cholangiogram shows no common bile duct stone We will continue advance diet, give pain control and patient continues to improve Plan: ? Flagyl and Rocephin ? Low-fat diet, advance as tolerated ? Multimodal pain analgesia ? Antiemetics #Chronic A-fib [id number]: 7 HAS-BLED: 3 Rate:Controlled Rhythm: Regular Plan: ? Resumed Coreg 12.5 mg twice daily ? Keep Mag and K+ above 2 and 4 respectively ? Eliquis 5 mg twice daily ? Telemetry #History of cirrhosis #Elevated transaminases, improving 41 AST; ALT 92 Patient does have primary hepatocellular disease seen on imaging Appears not to be in decompensation at this time Seen on cholangiogram Plan: ? Resumed Lasix 40 mg IV ? Trend markers with CMP #Hypertension #Hyperlipidemia Chronic LDL 83 Plan: ? Continue home Coreg 12.5 twice daily ? Resume home amlodipine 5 mg ? Will resume other home blood pressure medicines after surgery #BPH Chronic Unsure why patient is on 2 alpha blockers Plan: ? Continue home Flomax, Finasteride ? Discontinuing home silodosin upon d/c #Insullin Dependent type II Diabetes mellitus A1c 7.0 Plan: ? Sliding scale insulin q6h ? Hypoglycemic protocol in place ? Blood sugar checks q6h ? Lantus 10 units #Hepatitis B nonreactive surface antibody Other markers of acute hepatitis panel unremarkable Plan: ? Recommend outpatient hepatitis B vaccine #Thrombocytopenia, improving Plan: ? Trend CBC #Chronic constipation Colace and MiraLAX earlier Pending bowel movement for SNF Plan: ? Mineral oil enema #Health Maintenance Disposition: Vinod, pending bowel movements for discharge DVT prophylaxis: Eliquis 5 mg twice daily GI prophylaxis: Protonix Diet: Low-fat CODE STATUS: Full Patient seen and care discussed with my attending physician, Dr. Candice Grace, PGY-1 Attending Provider Attestation/Addendum I reviewed labs, imaging, EKG, home medications and prior available records. Face to face evaluation was performed by me. I have personally examined the patient and discussed assessment and plan with the IM team. I reviewed the resident note and agree with the plan with exceptions as below. 78-year-old male with history of hypertension, diabetes mellitus type 2, chronic lower extremity swelling, BPH, morbid obesity, who presented with a chief complaint of abdominal pain, nausea, and vomiting. He was found to have acute pancreatitis in the setting of cholelithiasis. Acute pancreatitis: Symptoms improved. Status post IV hydration. In the setting of cholelithiasis. Management as below Consulted surgery: S/p cholecystectomy on 09/20. Discussed with general surgery: Okay to discharge. Pending bowel movement prior to SNF placement Transaminitis: Likely in setting of acute pancreatitis and cholelithiasis. Downtrending. Continue to monitor closely Type 2 diabetes mellitus: A1c is 8.8. Started the patient on long-acting insulin plus sliding scale insulin. Adjust based on the future fingersticks. Monitor fingersticks. Essential hypertension: Resume antihypertensive treatment BPH: Resume home medications Atrial fibrillation with controlled ventricular rhythm: Resume anticoagulation after cholecystectomy Thrombocytopenia: Can be hemodilution versus due to liver cirrhosis process in the setting of acute illness. No signs of active bleeding. Monitor platelet level Liver cirrhosis: Outpatient follow-up with GI
[2024-09-21] MEDS: MELATONIN 3 MG TABLET 6 MG PO (21:01)
[2024-09-22] VITALS (16 sets, daily range): BP systolic 106–142; BP diastolic 71–83; PULSE 70–95; RESP 17–22; TEMP 36.1–36.5; O2SAT 93–99
[2024-09-22] MEDS: metroNIDAZOLE/NS 500 MG IVPB 500 MG/100 ML BAG 200 MG IV ×3 (05:41→21:50)
[2024-09-22 05:57] LABS: Basophils % (Auto) 0 % (0-2.5); Eosinophils # (Auto) 0.3 Thou/mm3 (0.0-0.5); Eosinophils % (Auto) 3 % (0-10); Hematocrit 41.7 % (41.0-53.0); Hemoglobin 13.7 g/dL (13.5-16.0); Immature Granulocytes % (Auto) 1 % (0-0); Immature Granulocytes Auto 0.04 Thou/mm3 (0.00-0.00); Lymphocytes # (Auto) 2.1 Thou/mm3 (1.0-4.8); Lymphocytes % (Auto) 26 % (10-50); Mean Corpuscular HGB Conc 32.9 g/dl (31.0-37.0); Mean Corpuscular Hemoglobin 30.9 pg (25.0-35.0); Mean Corpuscular Volume 94 fL (80-100); Monocytes # (Auto) 1.2 Thou/mm3 (0.0-0.8); Monocytes % (Auto) 15 % (0-12); Neutrophils # (Auto) 4.4 Thou/mm3 (1.8-7.7); Neutrophils % (Auto) 54 % (37-80); Nucleated Red Blood Cell % 0 /100 WBC (0); Platelet Count 127 Thou/mm3 (140-440); RDW Standard Deviation 50.3 fL (35.1-43.9); Red Blood Count 4.44 Miln/mm3 (4.50-5.90); White Blood Count 8.1 Thou/mm3 (3.8-10.6)
[2024-09-22 06:48] LABS: Alanine Aminotransferase 64 U/L (10-49); Albumin, Serum 2.8 gm/dL (3.4-4.8); Albumin/Globulin Ratio 1.2 (1.2-2.2); Alkaline Phosphatase 126 U/L (46-116); Anion Gap 7 (7-16); Aspartate Amino Transferase 27 U/L (0-34); BUN/Creatinine Ratio 16 Ratio (12-20); Blood Urea Nitrogen 11 mg/dL (9-23); Calcium 7.8 mg/dL (8.3-10.6); Calcium (Corrected) 8.8 mg/dL (8.5-10.1); Carbon Dioxide 33.6 mMol/L (20.0-31.0); Chloride 100 mMol/L (98-107); Creatinine (Component) 0.7 mg/dL (0.6-1.3); Estimated Creatinine Clearance 118.9 mL/min (>60); Globulin 2.4 gm/dL (2.3-3.5); Glucose 197 mg/dL (74-106); Magnesium 1.6 mg/dL (1.6-2.6); Osmolality,Calculated 285 (275-295); Phosphorous 2.7 mg/dL (2.4-5.1); Sodium 141 mMol/L (136-145); Total Protein 5.2 gm/dL (5.7-8.2); eGFR > 60 See Note
[2024-09-22] MEDS: Lisinopril 20 MG TABLET 40 MG PO (09:25)
[2024-09-22] MEDS: cefTRIAXone/D5w 1gm IV premix 1 GM/50 ML BAG IV (09:25)
[2024-09-22] MEDS: SENNA/DOCUSATE SOD 1 TAB TABLET PO (09:26)
[2024-09-22] MEDS: TAMSULOSIN HCL 0.4 MG CAPSULE 0.8 MG PO (09:26)
[2024-09-22] MEDS: amLODIPine BESYLATE 5 MG TABLET PO (09:26)
[2024-09-22] MEDS: carVEDILOL 12.5 MG TABLET PO ×2 (09:26→18:10)
[2024-09-22] MEDS: APIXABAN 2.5 MG TABLET 5 MG PO ×2 (09:26→21:50)
[2024-09-22] MEDS: INSULIN GLARGINE (Lantus) 5 UNIT/0.05 ML (PER 5 UNITS) 10 UNIT SC (09:27)
[2024-09-22] MEDS: FINASTERIDE 5 MG TABLET PO (09:27)
[2024-09-22] MEDS: FUROSEMIDE INJ 10 MG/ML 4ML VIAL 40 MG IVP (09:27)
[2024-09-22] MEDS: INSULIN LISPRO (AdmeLOG) 1 UNIT/0.01 ML UNIT SC ×4 (09:27→21:56)
--- NOTE | 2024-09-22 12:35 | PC.SS ---
SS contacted [facility] at the [place] [phone] to confirm if patient can return today. Dr. Moreira and team stated patient has not had BM in 3 days. [facility] stated patient must have BM before he can return to [facility] the [place]. Jemma explained patient's baseline is 2 BM daily, morning and evening. Jemma stated if enema or suppository is ordered, patient will need to stay 1 more day at [facility] to continue being monitored. SS informed Ester WILLIAMSON.
[2024-09-22] MEDS: LACTULOSE SYRUP 20 GM/30 ML UDC 10 GM PO ×2 (15:16→21:50)
--- NOTE | 2024-09-22 16:08 | ESPR_ITS ---
<Statement entered by Mimi Winter MD - 09/23/24 17:22> Patient was seen and examined by me personally. I have directly supervised and reviewed documentation by the team resident and agree with its findings with any exceptions or additional findings as below. Plan of care was discussed with the attending, Dr. Kelly. New Team B taking over care of patient starting today. Mr. Nur is a 78-year-old male with past medical history of type 2 diabetes, hypertension, BPH, cardiac arrhythmias, hyperlipidemia, ANDI, RA, psoriasis, chronic bilateral lower extremity edema, morbid obesity, status post CVA who is admitted for gallstone pancreatitis. Patient had resolution of pancreatitis and is post-op day 2 laparoscopic cholecystectomy. Patient was awaiting bowel movement prior to discharge. Patient given enema and added lactulose to regimen. Mimi Winter, PGY-2 Documentation for date of: 09/22/24 Subjective Subjective Interval history: No acute overnight events reported. Patient seen and examined at bedside this morning. Patient is saturating on 3 L oxygen via OxyMask and endorses to feeling significantly better denies any abdominal pain. Incision site is clean patient is status post lap emelina postop day 2. Patient was initially scheduled to be discharged yesterday however due to no bowel movement SNF will not accept the patient back to the facility. Patient continues to not have a bowel movement, today is day 3 however patient states that his normal routine is 3 to 5 days. Warm water enema and senna is ordered. Will continue to monitor for bowel movement will order lactulose 10 mg 3 times daily. Vitals are stable and labs are reviewed with no significant findings. Exam Vital Signs Temp Pulse Resp BP Pulse Ox O2 Del Method O2 Flow Rate 97.5 F 85 22 H 142/81 H 99 Nasal Cannula 3 09/22/24 15:59 09/22/24 15:59 09/22/24 15:59 09/22/24 15:59 09/22/24 15:59 09/22/24 15:59 09/22/24 15:59 Narrative Exam GENERAL: Obese elderly male, cooperative, answering questions, not in acute distress NEURO: no focal neurological deficits noted HEENT: Atraumatic, Normocephalic. mucous membranes moist. Eyes open, symmetrical, & clear HEART: Normal Heart Sounds LUNGS: Clear to auscultation with no wheezing or crackles. ABDOMEN: soft, non-distended, non-tender, bowel sounds heard, no guarding or rebound tenderness SKIN: No Rash or ecchymoses EXTREMITIES: No edema, tenderness, able to move all 4 extremities, pedal pulses palpated Objective Labs 09/23/24 04:38 09/23/24 04:38 Labs: Laboratory Results - last 24 hr 09/22/24 05:10 WBC 8.1 RBC 4.44 L Hgb 13.7 Hct 41.7 MCV 94 MCH 30.9 MCHC 32.9 RDW Std Deviation 50.3 H Plt Count 127 L Neut % (Auto) 54 Lymph % (Auto) 26 [place] % (Auto) 15 H Eos % (Auto) 3 Baso % (Auto) 0 Neut # (Auto) 4.4 Lymph # (Auto) 2.1 [place] # (Auto) 1.2 H Eos # (Auto) 0.3 Baso # (Auto) 0.0 Immature Gran # (Auto) 0.04 H Absolute Nucleated RBC 0.00 Immature Gran % 1 H Nucleated RBC % 0 Sodium 141 Potassium 4.0 Chloride 100 Carbon Dioxide 33.6 H Anion Gap 7 BUN 11 Creatinine 0.7 Estim Creat Clear Calc 118.9 eGFR > 60 BUN/Creatinine Ratio 16 Glucose 197 H Calculated Osmolality 285 Calcium 7.8 L Corrected Calcium 8.8 Phosphorus 2.7 Magnesium 1.6 Total Bilirubin 1.0 AST 27 ALT 64 H Alkaline Phosphatase 126 H D Total Protein 5.2 L Albumin 2.8 L Globulin 2.4 Albumin/Globulin Ratio 1.2 Quality Measures Quality Measures none Advance care planning discussed with:: patient Assessment & Plan Assessment Current Active Medications: Generic Name Dose Route Start Last Admin Trade Name Froylan PRN Reason Stop Dose Admin Acetaminophen 650 mg 09/17/24 18:38 Acetaminophen 325 Mg Tablet PO 10/17/24 18:37 Q6H PRN Fever >100 or pain 1-3 Hydrocodone Bitart/Acetaminophen 1 tab 09/17/24 18:38 09/21/24 09:07 Hydrocodone/Apap 10/325 Tab PO 09/22/24 18:37 1 tab Q4H PRN Administration PAIN SCALE 4-6 (Moderate Amlodipine Besylate 5 mg 09/21/24 10:00 09/22/24 09:26 Amlodipine Besylate 5 Mg Tablet PO 10/21/24 09:59 5 mg QDAY NITIN Administration Apixaban 5 mg 09/21/24 10:00 09/22/24 09:26 Apixaban 2.5 Mg Tablet PO 10/21/24 09:59 5 mg BID NITIN Administration Carvedilol 12.5 mg 09/18/24 21:00 09/22/24 09:26 Carvedilol 12.5 Mg Tablet PO 10/18/24 20:59 12.5 mg BIDWM NITIN Administration Dextrose 25 ml 09/17/24 10:51 Dextrose 50%-Water Inj 50 Ml Syringe IV 10/17/24 10:50 Q15MIN PRN BG 50-70 responsive npo pt Dextrose 50 ml 09/17/24 10:51 Dextrose 50%-Water Inj 50 Ml Syringe IV 10/17/24 10:50 Q15MIN PRN BG <50 OR BG <70 & pt unresponsive Docusate Sodium 100 mg 09/17/24 18:46 09/21/24 11:28 Docusate Sod 100 Mg Capsule PO 10/17/24 18:45 100 mg QDAY PRN Administration constipation Protocol Finasteride 5 mg 09/18/24 09:00 09/22/24 09:27 Finasteride 5 Mg Tablet PO 10/18/24 08:59 5 mg QDAY NITIN Administration Furosemide 40 mg 09/21/24 10:45 09/22/24 09:27 Furosemide Inj 10 Mg/Ml 4ml Vial IVP 10/21/24 10:44 40 mg QDAY NITIN Administration Glucagon 1 mg 09/17/24 10:51 Glucagon Inj 1 Mg Vial IM Q15MIN PRN BG <70, and no IV access Metronidazole 500 mg in 100 mls @ 200 mls/hr 09/17/24 23:33 09/22/24 15:16 Flagyl 500 Mg Iv IV 09/24/24 23:32 200 mls/hr Q8HR NITIN Administration Insulin Glargine 10 unit 09/18/24 09:00 09/22/24 09:27 Insulin Glargine (Lantus) 5 Unit/0.05 Ml (Per 5 Units) SC 10/18/24 08:59 10 unit QDAY NITIN Administration Insulin Human Lispro 0 unit 09/20/24 17:00 09/22/24 12:41 Insulin Lispro (Admelog) 1 Unit/0.01 Ml Unit SC 10/20/24 16:59 4 unit ACHS NITIN Administration Protocol Lactulose 10 gm 09/22/24 14:00 09/22/24 15:16 Lactulose Syrup 20 Gm/30 Ml Udc PO 10/22/24 13:59 10 gm TID NITIN Administration Protocol Lisinopril 40 mg 09/18/24 09:00 09/22/24 09:25 Lisinopril 20 Mg Tablet PO 10/18/24 08:59 40 mg QDAY NITIN Administration Melatonin 6 mg 09/17/24 21:00 09/21/24 21:01 Melatonin 3 Mg Tablet PO 10/17/24 20:59 6 mg HS NITIN Administration Morphine Sulfate 2 mg 09/17/24 18:38 Morphine Sulf Inj 10 Mg/Ml Vial IVP 09/22/24 18:37 Q4H PRN PAIN SCALE 7-10 (Severe Home Medication- 1 drop 09/17/24 21:00 09/22/24 05:42 Please Speak With BOTH EYES 10/17/24 20:59 Not Given Patient Caregiver To QID NITIN Have Rx Brought To [facility] Home Medication- 1 drop 09/17/24 21:00 09/22/24 09:38 Please Speak With BOTH EYES 10/17/24 20:59 Not Given Patient Caregiver To BID NITIN Have Rx Brought To [facility] Home Medication- 8 mg 09/18/24 09:00 09/22/24 09:38 Please Speak With PO 10/18/24 08:59 Not Given Patient Caregiver To QDAY NITIN Have Rx Brought To [facility] Tamsulosin HCl 0.8 mg 09/18/24 09:00 09/22/24 09:26 Tamsulosin Hcl 0.4 Mg Capsule PO 10/18/24 08:59 0.8 mg QDAY NITIN Administration Plan Artie is a 78 y/o male with PMHx of type 2 diabetes, hypertension, BPH, cardiac arrhythmias, hyperlipidemia, ANDI, RA, psoriasis, chronic bilateral lower extremity edema, morbid obesity, status post CVA who is admitted for gallstone pancreatitis. #Gallstone pancreatitis #Cholelithiasis with cholecystitis status post cholecystectomy postoperative day [address] Dickson Intraoperative cholangiogram shows no common bile duct stone We will continue advance diet, give pain control and patient continues to improve Plan: ? Flagyl and Rocephin discontinued on 09/22 ? Low-fat diet, advance as tolerated ? Multimodal pain analgesia ? Antiemetics #Chronic A-fib [id number]: 7 HAS-BLED: 3 Rate:Controlled Rhythm: Regular Plan: ? Resumed Coreg 12.5 mg twice daily ? Keep Mag and K+ above 2 and 4 respectively ? Eliquis 5 mg twice daily ? Telemetry #History of cirrhosis #Elevated transaminases, improving 41 AST; ALT 92 Patient does have primary hepatocellular disease seen on imaging Appears not to be in decompensation at this time Seen on cholangiogram during lap emelina Plan: ? Resumed Lasix 40 mg IV ? Continue to monitor CMP #Hx. of Primary Hypertension #Hx of Hyperlipidemia ? Continue home Coreg 12.5 twice daily ? Resume home amlodipine 5 mg ? Will resume other home blood pressure medicines after surgery #Hx. of BPH Plan: ? Continue home Flomax, Finasteride ? Discontinuing home silodosin upon d/c #Insullin Dependent type II Diabetes mellitus A1c 7.0 Plan: ? Sliding scale insulin q6h ? Hypoglycemic protocol in place ? Blood sugar checks q6h ? Lantus 10 units #Hepatitis B nonreactive surface antibody Other markers of acute hepatitis panel unremarkable Plan: - Pt will need to follow up outpatient with primary care ? Recommend outpatient hepatitis B vaccine #Thrombocytopenia, improving Plan: ? Trend CBC #Chronic constipation Colace and MiraLAX earlier Pending bowel movement for SNF Plan: ? Mineral oil enema given 09/21 -lactulose, senna and warm water enama ordered #Health Maintenance Disposition: MedSurg, pending bowel movements for discharge DVT prophylaxis: Eliquis 5 mg twice daily GI prophylaxis: Protonix Diet: Low-fat CODE STATUS: Full Assessment and plan discussed with my senior resident Dr. Winter & attending physician Dr. Robin Barron (PGY-1)- Internal medicine resident Attending Provider Attestation/Addendum Face to face evaluation was performed by me. I have personally seen and examined the patient. I discussed the assessment and plan with the entire medicine team. I reviewed available medical records, imaging studies, laboratory results. I agree with the above subjective data, objective findings, assessment and plan except as corrected by me or noted below #Gallstone pancreatitis #Cholelithiasis with cholecystitis status post cholecystectomy #Chronic A-fib #History of cirrhosis #Elevated transaminases, improving #Chronic constipation - Stop IV Abxs flagyl and ceftriaxone - DC planning - Bowel regimen More than > 30 minutes spent on the encounter
[2024-09-22] MEDS: GLYCERIN, ADULT 1 EA SUPP 1 EACH PR (18:10)
[2024-09-22] MEDS: MELATONIN 3 MG TABLET 6 MG PO (21:50)
[2024-09-23] VITALS (8 sets, daily range): BP systolic 134–141; BP diastolic 69–92; PULSE 62–95; RESP 15–18; TEMP 36–36.6; O2SAT 95–98
[2024-09-23] MEDS: LACTULOSE SYRUP 20 GM/30 ML UDC 10 GM PO ×2 (05:23→13:40)
[2024-09-23] MEDS: metroNIDAZOLE/NS 500 MG IVPB 500 MG/100 ML BAG 200 MG IV ×2 (05:24→13:41)
[2024-09-23 05:31] LABS: Basophils % (Auto) 1 % (0-2.5); Eosinophils # (Auto) 0.3 Thou/mm3 (0.0-0.5); Eosinophils % (Auto) 3 % (0-10); Hematocrit 38.3 % (41.0-53.0); Hemoglobin 13.2 g/dL (13.5-16.0); Immature Granulocytes % (Auto) 1 % (0-0); Immature Granulocytes Auto 0.05 Thou/mm3 (0.00-0.00); Lymphocytes # (Auto) 2.3 Thou/mm3 (1.0-4.8); Lymphocytes % (Auto) 26 % (10-50); Mean Corpuscular HGB Conc 34.5 g/dl (31.0-37.0); Mean Corpuscular Hemoglobin 31.6 pg (25.0-35.0); Mean Corpuscular Volume 92 fL (80-100); Monocytes # (Auto) 1.3 Thou/mm3 (0.0-0.8); Monocytes % (Auto) 15 % (0-12); Neutrophils # (Auto) 4.8 Thou/mm3 (1.8-7.7); Neutrophils % (Auto) 55 % (37-80); Nucleated Red Blood Cell % 0 /100 WBC (0); Platelet Count 134 Thou/mm3 (140-440); RDW Standard Deviation 48.1 fL (35.1-43.9); Red Blood Count 4.18 Miln/mm3 (4.50-5.90); White Blood Count 8.8 Thou/mm3 (3.8-10.6)
[2024-09-23] MEDS: ACETAMINOPHEN 325 MG TABLET 650 MG PO ×2 (05:49→13:40)
[2024-09-23 05:51] LABS: Alanine Aminotransferase 47 U/L (10-49); Albumin, Serum 2.8 gm/dL (3.4-4.8); Albumin/Globulin Ratio 1.1 (1.2-2.2); Alkaline Phosphatase 112 U/L (46-116); Anion Gap 7 (7-16); Aspartate Amino Transferase 23 U/L (0-34); BUN/Creatinine Ratio 13 Ratio (12-20); Blood Urea Nitrogen 8 mg/dL (9-23); Calcium 8.1 mg/dL (8.3-10.6); Calcium (Corrected) 9.1 mg/dL (8.5-10.1); Carbon Dioxide 33.6 mMol/L (20.0-31.0); Chloride 102 mMol/L (98-107); Creatinine (Component) 0.6 mg/dL (0.6-1.3); Estimated Creatinine Clearance 138.7 mL/min (>60); Globulin 2.5 gm/dL (2.3-3.5); Glucose 201 mg/dL (74-106); Magnesium 1.6 mg/dL (1.6-2.6); Osmolality,Calculated 289 (275-295); Phosphorous 2.7 mg/dL (2.4-5.1); Potassium 3.8 mMol/L (3.4-5.1); Sodium 143 mMol/L (136-145); Total Protein 5.3 gm/dL (5.7-8.2); eGFR > 60 See Note
[2024-09-23] MEDS: INSULIN LISPRO (AdmeLOG) 1 UNIT/0.01 ML UNIT SC ×2 (07:54→11:25)
[2024-09-23] MEDS: APIXABAN 2.5 MG TABLET 5 MG PO (08:00)
[2024-09-23] MEDS: amLODIPine BESYLATE 5 MG TABLET PO (08:00)
[2024-09-23] MEDS: TAMSULOSIN HCL 0.4 MG CAPSULE 0.8 MG PO (08:01)
[2024-09-23] MEDS: FUROSEMIDE INJ 10 MG/ML 4ML VIAL 40 MG IVP (08:01)
[2024-09-23] MEDS: FINASTERIDE 5 MG TABLET PO (08:01)
[2024-09-23] MEDS: INSULIN GLARGINE (Lantus) 5 UNIT/0.05 ML (PER 5 UNITS) 10 UNIT SC (08:02)
[2024-09-23] MEDS: carVEDILOL 12.5 MG TABLET PO (08:03)
[2024-09-23] MEDS: Lisinopril 20 MG TABLET 40 MG PO (08:03)
[2024-09-23] MEDS: DOCUSATE SOD 100 MG CAPSULE PO (08:04)
--- NOTE | 2024-09-23 09:13 | PC.SS ---
SS has spoken to Chavez Dooley at [facility] who states they do not have access to [facility] and did not receive previous updated information. SS has faxed updated information to [facility] at [phone]. Soumya Byrne is aware pt has had BM and will return today.
[2024-09-23] MEDS: POTASSIUM CHLORIDE 20 mEq TABCR 40 MEQ PO (09:16)
[2024-09-23] MEDS: traMADol HCL 50 MG TABLET PO (09:17)
[2024-09-23] MEDS: Magnesium Sulfate 4 GM Ivpb 4 GM/50 ML BAG IV (09:17)
--- NOTE | 2024-09-23 09:41 | ESDS_ITS ---
Planned Discharge Date 09/23/24 DS: Providers Provider Date of admission: 09/17/24 18:34 Primary care physician: Physician No Primary/Family Admitting Provider: Yousuf Harvey MD Attending Provider on Admission: Jose Kelly MD Consults: 09/17/24 16:37 Consult to General Surgery Stat Comment: Acute calculus cholecystitis Consulting Provider: Azalea Dickson 09/18/24 00:56 Referral Respiratory Therapy Routine Comment: 09/21/24 10:33 Referral Physical Therapy Routine Comment: Physician Instructions: Instructions: post op Attending Provider on DC: Herman Barron MD Discharging Provider: Herman Barron MD DS: Diagnosis Problem List Completed Was Problem List Reviewed/Reconciled?: Yes Hospital Course Hospital Course Hospital course: Mr. Nur 78-year-old male with past medical history of type 2 diabetes, hypertension, BPH, cardiac arrhythmias, hyperlipidemia, ANDI, RA, psoriasis, chronic bilateral lower extremity edema, morbid obesity, status post CVA presenting to [facility] ED on 09/17/24 complaining of abdominal pain, nausea and vomiting. MRCP and CT of abdoment/pelvis reveal acute pancreatitis and cholethiasis. Pt was admitted and further management of gallstone acute pancreatitis. Annealer Helper was consulted and patient underwent laparoscopic cholecystectomy with intraoperative cholangiogram. Post op patient did well, tolerated oral diet well and endorses to complete resolution of abdominal pain as well as nausea or vomiting. Pt's hospital stay was extended due to lack of bowel movement. Although patient regularly have a bowel movement 3-5 days. After starting bowel regimen, Pt had bowel movement on 09/22 and 09/23 and ready to be discharged back to SNF. Discharge Recommendations Follow-up with PCP within 1 week Follow-up with general surgeon, Dr. Dickson Take medicines as prescribed Return to ED if your symptoms worsen return I have stopped your Rapaflo medicine as you are already on a similar medicine to this called Flomax I have adjusted your Lasix dose to 40 mg once a day rather than 40 mg 3 times a day Hospitalization Diagnosis #Gallstone pancreatitis #Cholelithiasis with cholecystitis status post cholecystectomy #Chronic A-fib #History of cirrhosis #Elevated transaminases, improving #Hx. of Primary Hypertension #Hx of Hyperlipidemia #Hx. of BPH #Insullin Dependent type II Diabetes mellitus #Hepatitis B nonreactive surface antibody #Thrombocytopenia, improving #Chronic constipation Assessment and plan discussed with my attending physician Dr. Robin Barron (PGY-1)- Internal medicine resident Time Spent with Patient Time attestation: Total time spent providing and/or coordinating discharge services: Time spent: Greater than 30 minutes Exam Vital Signs Temp Pulse Resp BP Pulse Ox O2 Del Method O2 Flow Rate 97.9 F 83 15 139/88 H 98 Nasal Cannula 3 09/23/24 04:00 09/23/24 08:03 09/23/24 04:00 09/23/24 08:03 09/23/24 04:00 09/23/24 04:00 09/23/24 04:00 Narrative Exam GENERAL: Obese elderly male, cooperative, answering questions, not in acute distress NEURO: no focal neurological deficits noted HEENT: Atraumatic, Normocephalic. mucous membranes moist. Eyes open, symmetrical, & clear HEART: Normal Heart Sounds LUNGS: Clear to auscultation with no wheezing or crackles. ABDOMEN: soft, non-distended, non-tender, bowel sounds heard, no guarding or rebound tenderness SKIN: No Rash or ecchymoses EXTREMITIES: No edema, tenderness, able to move all 4 extremities, pedal pulses palpated Discharge Plan Plan Patient Disposition: Xfer Skilled Nsg Fac (SNF) Patient condition on transfer: Stable Care Plan Goals: Discharge instructions Follow-up with PCP within 1 week Follow-up with general surgeon, Dr. Dickson Take medicines as prescribed Return to ED if your symptoms worsen return I have stopped your Rapaflo medicine as you are already on a similar medicine to this called Flomax I have adjusted your Lasix dose to 40 mg once a day rather than 40 mg 3 times a day Prescriptions/Referrals Prescriptions/Med Rec: New furosemide [Lasix] 40 mg tablet 40 mg PO QDAY 30 Days Qty: 30 0RF Rx Instructions: Take one tablet by mouth every day Continued acetaminophen 650 mg tablet extended release 650 mg PO Q4HR PRN (Reason: pain) Patient Comments: Give 650 mg by mouth every 4 hours as needed for pain related to benign p rostatic hyperplasia without lower urinary tract infection. amlodipine 5 mg tablet 5 mg PO HS Patient Comments: Give 1 tablet by mouth at bedtime related to ESSENTIAL (PRIMARY) HYPERTENSION. Hold for BP under 110 systolic apixaban 5 mg tablet 5 mg PO BID potassium chloride 20 mEq tablet extended release 20 meq PO QDAY loperamide 2 mg tablet 2 mg PO Q4H PRN (Reason: loose stool) Rx Instructions: administer after each loose stool until symptoms controlled; do not exceed 8 mg per 24 hrs lisinopril 40 mg tablet 40 mg PO QDAY tamsulosin 0.4 mg capsule 0.8 mg PO QDAY finasteride 5 mg tablet 5 mg PO QDAY carboxymethylcellulose sodium 0.5 % dropperette 1 drp Both eyes QID cholecalciferol (vitamin D3) [Vitamin D3] 125 mcg (5,000 unit) tablet 5,000 unit PO QDAY clobetasol 0.05 % solution 1 applic topical QDAY Patient Comments: Apply to scalp and behind ears topically one time a day for affected area to scalp for 2 weeks apply 4-6 drops to affected areas on scalp and behind ears. insulin glargine [Lantus U-100 Insulin] 100 unit/mL solution 20 unit subcut QDAY melatonin 5 mg tablet 6 mg PO HS Patient Comments: Give 6mg by mouth at bedtime related to Sleep Apnea carvedilol 12.5 mg tablet 12.5 mg PO BID Rx Instructions: must administer with a meal/food ketotifen fumarate 0.025 % (0.035 %) drops 1 drp ophthalmic (eye) BID Rx Instructions: administer at least 8 hours apart Humulin R Regular U-100 Insuln 100 unit/mL solution 1 sliding scale dose subcut USEASDIRECTD docusate sodium 100 mg capsule 100 mg PO QDAY PRN (Reason: constipation) diclofenac sodium [Voltaren Arthritis Pain] 1 % gel 2 g topical QID Rx Instructions: apply to single elbow, wrist or hand; for hand includes palm/fingers/back of hand Systane (propylene glycol) 0.4-0.3 % drops 1 drp ophthalmic (eye) Q8H PRN (Reason: dry eye(s)) magnesium hydroxide 400 mg/5 mL suspension 30 ml PO QDAY PRN (Reason: constipation) ibuprofen [IBU] 600 mg tablet 600 mg PO Q8H empagliflozin 25 mg tablet 25 mg PO QDAY dextromethorphan-guaifenesin [Diabetic Tussin DM] 10-100 mg/5 mL liquid 10 ml PO Q4H Discontinued silodosin [Rapaflo] 8 mg capsule 8 mg PO QDAY Rx Instructions: must administer with a meal/food furosemide 40 mg tablet 40 mg PO TID Patient Comments: Give 1 tablet by mouth three times a day for swelling to lower extremities related to essential (primary) hypertension. metoprolol succinate 100 mg tablet extended release 24 hr 100 mg PO BID Allergy Eye (naphazoline-phen) 0.025-0.3 % drops 2 drp ophthalmic (eye) QDAY PRN (Reason: allergy symptoms) hydrocodone-acetaminophen 5-325 mg tablet 1 tab PO Q6H PRN (Reason: pain) Referrals: No Primary/Family,Physician [Primary Care Provider] - Patient/Caregiver Discharge Instructions Discharge Activity: activity as tolerated Education Materials: Cholecystectomy, Preventing Surgical Site Infections, ED Pancreatitis Print Language: Liberian Activity Restrictions/Additional Instructions: May shower. Avoid lifting, straining, pulling or pushing for 4 weeks. May take laxatives if no bowel movements in 2 days. Follow up with Dr. Dickson in 2 weeks, please call [phone] for an appointment. Stand Alone Forms: [employer] Info., Patient Portal Info Letter Discharge Order Discharge Orders: Discharge (Routine); Ordered 09/23/24 Ordered By: Liliana Mckeon Quality Discharge Quality Measures none MD Attestestation MD Attestation Face to face evaluation was performed by me. I have personally seen and examined the patient. I discussed the assessment and plan with the entire medicine team. I reviewed available medical records, imaging studies, laboratory results. I agree with the above subjective data, objective findings, assessment and plan except as corrected by me or noted below #Gallstone pancreatitis #Cholelithiasis with cholecystitis status post cholecystectomy #Chronic A-fib #History of cirrhosis #Elevated transaminases, improving #Chronic constipation # Essential HTN - S/p cholecystectomy Finished Abxs course -Had BM yesterday and today plan to dc to SNF med rec done Fu with PCP in 1-2 weeks, Gen Surgery in 1-2 weeks More than > 30 minutes spent on the encounter
--- NOTE | 2024-09-23 12:46 | PC.NURSE ---
report given to receiving nurse at [facility].
== END 2024-09-23 16:00 | disposition skilled nursing facility (03) | DRG 418 ==
LOC: SERX 16:35 → SERHOLD 19:20 → S3SX 23:44
PROVIDERS: Student in an Organized Health Care Education/Training Program; Surgery; Admitting Provider Student in an Organized Health Care Education/Training Program; Emergency Provider Emergency Medicine; Visit Provider Internal Medicine
PROC: 0FT44ZZ Resection of Gallbladder, Percutaneous Endoscopic Approach (ICD-10-PCS; CPT 47562; principal; 2024-09-20 14:00)
DX: K85.10 Biliary acute pancreatitis without necrosis or infection (principal); B19.10 Unspecified viral hepatitis B without hepatic coma; I48.20 Chronic atrial fibrillation, unspecified; K80.00 Calculus of gallbladder with acute cholecystitis without obstruction; Z68.42 Body mass index [BMI] 45.0-49.9, adult; K80.12 Calculus of gallbladder with acute and chronic cholecystitis without obstruction; R18.8 Other ascites; I10 Essential (primary) hypertension; E11.9 Type 2 diabetes mellitus without complications; N40.0 Benign prostatic hyperplasia without lower urinary tract symptoms; E66.01 Morbid (severe) obesity due to excess calories; E78.5 Hyperlipidemia, unspecified; E78.00 Pure hypercholesterolemia, unspecified; K74.60 Unspecified cirrhosis of liver; Z79.01 Long term (current) use of anticoagulants; Z79.4 Long term (current) use of insulin; Z79.84 Long term (current) use of oral hypoglycemic drugs; Z86.73 Personal history of transient ischemic attack (TIA), and cerebral infarction without residual deficits; K82.8 Other specified diseases of gallbladder; D69.6 Thrombocytopenia, unspecified
CPT/HCPCS: 36415; 71045; 74019; 74178; 74300; 76705; 80053; 80061; 81001; 83036; 83690; 83735; 84100; 84443; 84484; 85025; 85610; 85730; 86705; 86706; 86803; 87081; 87340; 87811; 93005; 93225; 96361; 96365; 96367; 96372; 96375; A4217; A4649; J0692; J0696; J1100; J1815; J1938; J2270; J2405; J2470; J2704; J3010; J3475; J3490; J7040; J7050; J7120; J7999; Q9967; S8037; 74181; A9270; J1805; J1836

== ENCOUNTER → 2024-10-09 | Outpatient (CLI) | payer MEDICARE, MEDICAID, OTHER, SELFPAY ==
[2024-10-09 17:56] LABS: Collection Type, Urine Clean Catch
[2024-10-09 18:08] LABS: Bacteria,Urine 1+; Bilirubin,Urine Negative (Negative); Blood,Urine 2+ (Negative); Clarity,Urine Turbid (Clear/Hazy); Color,Urine Lt-Yellow (Lt Yel-Yel); Glucose, Urine 4+ (Negative); Ketones,Urine Negative (Negative); Leukocyte Esterase,Urine Positive (Negative); Nitrite,Urine Negative (Negative); Protein,Urine Negative (Neg - Trace); RBC,Urine 32 /hpf (0-3); Specific Gravity,Urine 1.017 (1.001-1.035); Squamous Epithelial Cell,Urine 1 /hpf (0-5); Urobilinogen,Urine Negative mg/dL (0.0-1.0); WBC,Urine 426 /hpf (0-5)
[2024-10-09 18:15] LABS: Culture Indicated,Urine Yes
== END | disposition home or self-care (01) ==
PROVIDERS: PCP Hospitalist; Referring Provider Hospitalist; Visit Provider Hospitalist
DX: K74.60 Unspecified cirrhosis of liver (principal); R30.0 Dysuria
CPT/HCPCS: 81001; 87077; 87086; 87186

== ENCOUNTER → 2024-10-21 | Outpatient (BNVA) | payer OTHER, SELFPAY | END | disposition home or self-care (01) | PROVIDERS: PCP Hospitalist; Referring Provider Hospitalist; Visit Provider Urology | DX: N40.1 Benign prostatic hyperplasia with lower urinary tract symptoms (principal); N13.8 Other obstructive and reflux uropathy; Z90.49 Acquired absence of other specified parts of digestive tract; N39.0 Urinary tract infection, site not specified; E66.01 Morbid (severe) obesity due to excess calories; Z99.3 Dependence on wheelchair; M06.9 Rheumatoid arthritis, unspecified; E11.9 Type 2 diabetes mellitus without complications; I10 Essential (primary) hypertension; E78.5 Hyperlipidemia, unspecified; G47.30 Sleep apnea, unspecified; Z86.73 Personal history of transient ischemic attack (TIA), and cerebral infarction without residual deficits | CPT/HCPCS: 99212; G0463 ==